=== PATIENT | male | born 1955 | race Caucasian/White ===

== ENCOUNTER 2018-01-09 14:13 | Emergency (ER) | payer MEDICARE, MEDICAID, SELFPAY ==
[2018-01-09 14:26] VITALS: BP 138/104; PULSE 112; RESP 14; TEMP 37; O2SAT 95
--- NOTE | 2018-01-09 15:00 | DI.REPORT_ITS ---
SYMPTOMS/DIAGNOSIS: CHEST PAIN CHEST X-RAY, PORTABLE AP VIEW: Comparison is 01/02/18. The heart size and pulmonary vasculature are stable. Sternal wires are in place. The lungs are clear. No effusions or pneumothoraces are identified. IMPRESSION: No acute pulmonary process.
--- NOTE | 2018-01-09 15:05 | ED.GENADUL ---
Disposition Clinical Impression: Heart attack Disposition: HOME Condition: Critical Additional Instructions: You are leaving AGAINST MEDICAL ADVICE. You may have severe life-threatening or lifestyle modifying disease that is not being appropriately treated. Please follow-up with your doctor and inspector metal can and return to the ER at any time for further treatment. Referrals: Devin Barron [Primary Care Provider] - Medical Decision Making - Lab Data Laboratory Tests 01/09/18 01/09/18 14:30 14:30 WBC 10.10 RBC 5.31 Hgb 18.8 H Hct 51.9 H MCV 97.7 H MCH 35.4 H MCHC 36.2 H RDW 14.2 H Plt Count 343 MPV 10.4 Immature Gran % 1.8 Neutrophils % 54.7 Lymphocytes % 32.1 Monocytes % 8.3 Eosinophils % 2.2 Basophils % 0.9 Absolute Neutrophils 5.53 Absolute Lymphocytes 3.24 Absolute Monocytes 0.84 H Absolute Eosinophils 0.22 Absolute Basophils 0.09 Sodium 140 Potassium 3.5 Chloride 104 Carbon Dioxide 18.4 L Anion Gap 17.6 H BUN 25 H Creatinine 1.28 Estimated GFR/1.73 m2 57.13 Glucose 73 Calcium 8.3 L Magnesium 2.1 Total Bilirubin 1.0 AST 32 ALT 37 Alkaline Phosphatase 84 Troponin I 0.46 H Total Protein 7.1 Albumin 3.6 Results reviewed for labs ordered during visit: Yes - Medical Decision Making 15:09 --62-year-old male with history of extensive coronary artery disease, status post CABGx4, recent NSTEMI, status post 2 stents that were placed 2 days ago at [facility], presents with recurrent chest pain today. ECG reviewed and interpreted by me: Sinus rhythm 99 bpm, normal axis, no STEMI, Q waves present inferiorly, poor R-wave progression, no STEMI, nondiagnostic. Plan at this time is to check troponin. --Labs reviewed and troponin is elevated. Given clinical picture I am concerned about stent stenosis and acute coronary syndrome. Plan to start nitroglycerin drip as well as heparin drip. Plan for transfer to tertiary care facility. 16:28 --I reviewed all results and treatment plan with the patient. Patient refuses further care. Patient specifically states that his not interested in aggressive measures anymore. I explained that he may have life-threatening or lifestyle modifying disease. I specifically noted that he could have a heart attack. Patient verbalized understanding of my concern. Patient has decision-making capacity. Patient refuses further treatment and wishes to leave AGAINST MEDICAL ADVICE. I encouraged him to follow-up with his doctor. I also encouraged him to return immediately should he change his mind. History of Present Illness - General Chief complaint: Chest Pain Stated complaint: CALEX Time Seen by Provider: 01/09/18 14:27 Source: patient, RN notes reviewed Mode of arrival: ambulatory Limitations: no limitations - History of Present Illness Initial comments: 62-year-old male with history of coronary artery disease status post CABG, status post recent stenting, CHF, COPD, hyperlipidemia, hypertension, presents today with chief complaint of chest pain. Patient notes chest pain started approximately 1 hour ago. Described as an ache. Pain localized to his left anterior chest and radiates to his left shoulder. Pain was moderate to severe and improved with fentanyl administration by EMS. Patient was also given nitroglycerin which he notes did not help. Pain is currently improved and rated 4/10. He denies associated shortness of breath. He does have associated anxiety. - Related Data Atorvastatin [Lipitor] 80 mg PO DAILY 12/18/16 Docusate Sodium [Doc-Q-Lace] 100 mg PO PRN PRN 12/18/16 Umeclidinium [place] [Incruse Ellipta] 62.5 mcg IH DAILY 12/18/16 Fluticasone/Salmeterol [Advair 500-50 Diskus] 1 each IH BID 02/12/17 Aspirin 81 mg PO DAILY #30 chew 06/22/17 LORazepam [Ativan] 1 mg PO QID PRN PRN #4 tab 06/22/17 Bisoprolol Fumarate 5 mg PO DAILY #90 tab-cap 09/10/17 Furosemide 40 mg PO BID tab-cap 09/10/17 Omeprazole 40 mg PO DAILY tab-cap 09/10/17 Proventil Hfa 1 puff IH Q4H PRN inhaler 09/10/17 Acetaminophen 500 mg PO PRN PRN 01/09/18 Clopidogrel Bisulfate [Clopidogrel] 75 mg PO DAILY 01/09/18 Digoxin 125 mcg PO DAILY 01/09/18 Diltiazem HCl [Cartia Xt] 240 mg 01/09/18 Isosorbide Mononitrate [Isosorbide Mononitrate ER] 60 mg PO DAILY AM 01/09/18 Losartan Potassium 50 mg PO DAILY AM 01/09/18 Metoprolol Succinate 25 mg PO DAILY AM 01/09/18 Nitroglycerin 0.4 mg SL PRN PRN 01/09/18 Rivaroxaban [Xarelto] 20 mg PO DAILY 01/09/18 Venlafaxine HCl 100 mg PO BID 01/09/18 Allergies Allergy/AdvReac Type Severity Reaction Status Date / Time metoprolol AdvReac fatigue Unverified 01/09/18 14:32 Review of Systems Constitutional: denies: fever Respiratory: denies: cough, shortness of breath Cardiovascular: chest pain Gastrointestinal: denies: abdominal pain Neurological: denies: headache Comment: All other systems reviewed and negative Past Medical History - Past Medical History Medical history: AMI, CAD, CHF, COPD, hyperlipidemia, hypertension Surgical history: angioplasty/stent, coronary bypass surgery, herniorraphy (Bilateral inguinal) - Social History Alcohol use: heavy, recent Drug use: none General Exam - General Limitations: no limitations General appearance: alert, in no apparent distress - Eye Eye exam: Absent: scleral icterus, conjunctival injection - ENT ENT exam: Present: mucous membranes moist - Respiratory Respiratory exam: Present: normal lung sounds bilaterally. Absent: respiratory distress, wheezes, rales, rhonchi - Cardiovascular Cardiovascular Exam: Present: regular rate, normal rhythm, normal heart sounds - GI/Abdominal GI/Abdominal exam: Present: soft. Absent: distended, tenderness - Extremities Exam Extremities exam: Absent: pedal edema, calf tenderness - Neurological Exam Neurological exam: Present: alert. Absent: altered - Psychiatric Psychiatric exam: Present: normal affect - Skin Skin exam: Present: warm, dry, intact. Absent: cyanosis, diaphoretic Course Vital Signs - 24 hr 01/09/18 14:26 Temperature 37 C Pulse 112 H Respiratory 14 Rate Blood Pressure 138/104 Pulse Oximetry 95
--- NOTE | 2018-01-09 15:08 | ED.GENADUL_ITS ---
Disposition Clinical Impression: Heart attack Disposition: HOME Condition: Critical Additional Instructions: You are leaving AGAINST MEDICAL ADVICE. You may have severe life-threatening or lifestyle modifying disease that is not being appropriately treated. Please follow-up with your doctor and cnc field service engineer and return to the ER at any time for further treatment. Referrals: Devin Barron [Primary Care Provider] - Medical Decision Making - Lab Data Laboratory Tests 01/09/18 01/09/18 14:30 14:30 WBC 10.10 RBC 5.31 Hgb 18.8 H Hct 51.9 H MCV 97.7 H MCH 35.4 H MCHC 36.2 H RDW 14.2 H Plt Count 343 MPV 10.4 Immature Gran % 1.8 Neutrophils % 54.7 Lymphocytes % 32.1 Monocytes % 8.3 Eosinophils % 2.2 Basophils % 0.9 Absolute Neutrophils 5.53 Absolute Lymphocytes 3.24 Absolute Monocytes 0.84 H Absolute Eosinophils 0.22 Absolute Basophils 0.09 Sodium 140 Potassium 3.5 Chloride 104 Carbon Dioxide 18.4 L Anion Gap 17.6 H BUN 25 H Creatinine 1.28 Estimated GFR/1.73 m2 57.13 Glucose 73 Calcium 8.3 L Magnesium 2.1 Total Bilirubin 1.0 AST 32 ALT 37 Alkaline Phosphatase 84 Troponin I 0.46 H Total Protein 7.1 Albumin 3.6 Results reviewed for labs ordered during visit: Yes - Medical Decision Making 15:09 --62-year-old male with history of extensive coronary artery disease, status post CABGx4, recent NSTEMI, status post 2 stents that were placed 2 days ago at [facility], presents with recurrent chest pain today. ECG reviewed and interpreted by me: Sinus rhythm 99 bpm, normal axis, no STEMI, Q waves present inferiorly, poor R-wave progression, no STEMI, nondiagnostic. Plan at this time is to check troponin. --Labs reviewed and troponin is elevated. Given clinical picture I am concerned about stent stenosis and acute coronary syndrome. Plan to start nitroglycerin drip as well as heparin drip. Plan for transfer to tertiary care facility. 16:28 --I reviewed all results and treatment plan with the patient. Patient refuses further care. Patient specifically states that his not interested in aggressive measures anymore. I explained that he may have life-threatening or lifestyle modifying disease. I specifically noted that he could have a heart attack. Patient verbalized understanding of my concern. Patient has decision- making capacity. Patient refuses further treatment and wishes to leave AGAINST MEDICAL ADVICE. I encouraged him to follow-up with his doctor. I also encouraged him to return immediately should he change his mind. History of Present Illness - General Chief complaint: Chest Pain Stated complaint: CALEX Time Seen by Provider: 01/09/18 14:27 Source: patient, RN notes reviewed Mode of arrival: ambulatory Limitations: no limitations - History of Present Illness Initial comments: 62-year-old male with history of coronary artery disease status post CABG, status post recent stenting, CHF, COPD, hyperlipidemia, hypertension, presents today with chief complaint of chest pain. Patient notes chest pain started approximately 1 hour ago. Described as an ache. Pain localized to his left anterior chest and radiates to his left shoulder. Pain was moderate to severe and improved with fentanyl administration by EMS. Patient was also given nitroglycerin which he notes did not help. Pain is currently improved and rated 4/10. He denies associated shortness of breath. He does have associated anxiety. - Related Data Atorvastatin [Lipitor] 80 mg PO DAILY 12/18/16 Docusate Sodium [Doc-Q-Lace] 100 mg PO PRN PRN 12/18/16 Umeclidinium [place] [Incruse Ellipta] 62.5 mcg IH DAILY 12/18/16 Fluticasone/Salmeterol [Advair 500-50 Diskus] 1 each IH BID 02/12/17 Aspirin 81 mg PO DAILY #30 chew 06/22/17 LORazepam [Ativan] 1 mg PO QID PRN PRN #4 tab 06/22/17 Bisoprolol Fumarate 5 mg PO DAILY #90 tab-cap 09/10/17 Furosemide 40 mg PO BID tab-cap 09/10/17 Omeprazole 40 mg PO DAILY tab-cap 09/10/17 Proventil Hfa 1 puff IH Q4H PRN inhaler 09/10/17 Acetaminophen 500 mg PO PRN PRN 01/09/18 Clopidogrel Bisulfate [Clopidogrel] 75 mg PO DAILY 01/09/18 Digoxin 125 mcg PO DAILY 01/09/18 Diltiazem HCl [Cartia Xt] 240 mg 01/09/18 Isosorbide Mononitrate [Isosorbide Mononitrate ER] 60 mg PO DAILY AM 01/09/18 Losartan Potassium 50 mg PO DAILY AM 01/09/18 Metoprolol Succinate 25 mg PO DAILY AM 01/09/18 Nitroglycerin 0.4 mg SL PRN PRN 01/09/18 Rivaroxaban [Xarelto] 20 mg PO DAILY 01/09/18 Venlafaxine HCl 100 mg PO BID 01/09/18 Allergies Allergy/AdvReac Type Severity Reaction Status Date / Time metoprolol AdvReac fatigue Unverified 01/09/18 14:32 Review of Systems Constitutional: denies: fever Respiratory: denies: cough, shortness of breath Cardiovascular: chest pain Gastrointestinal: denies: abdominal pain Neurological: denies: headache Comment: All other systems reviewed and negative Past Medical History - Past Medical History Medical history: AMI, CAD, CHF, COPD, hyperlipidemia, hypertension Surgical history: angioplasty/stent, coronary bypass surgery, herniorraphy ( Bilateral inguinal) - Social History Alcohol use: heavy, recent Drug use: none General Exam - General Limitations: no limitations General appearance: alert, in no apparent distress - Eye Eye exam: Absent: scleral icterus, conjunctival injection - ENT ENT exam: Present: mucous membranes moist - Respiratory Respiratory exam: Present: normal lung sounds bilaterally. Absent: respiratory distress, wheezes, rales, rhonchi - Cardiovascular Cardiovascular Exam: Present: regular rate, normal rhythm, normal heart sounds - GI/Abdominal GI/Abdominal exam: Present: soft. Absent: distended, tenderness - Extremities Exam Extremities exam: Absent: pedal edema, calf tenderness - Neurological Exam Neurological exam: Present: alert. Absent: altered - Psychiatric Psychiatric exam: Present: normal affect - Skin Skin exam: Present: warm, dry, intact. Absent: cyanosis, diaphoretic Course Vital Signs - 24 hr 01/09/18 14:26 Temperature 37 C Pulse 112 H Respiratory 14 Rate Blood Pressure 138/104 Pulse Oximetry 95
[2018-01-09 15:19] LABS: Abs Immature Grans 0.18 k/cumm (0.0-0.09); Absolute Basophil Count 0.09 k/cumm (0.0-0.2); Absolute Eosinophil Count 0.22 k/cumm (0.0-0.7); Absolute Lymphocyte Count 3.24 k/cumm (1.2-3.4); Absolute Monocyte Count 0.84 k/cumm (0.11-0.7); Absolute Neutrophil Count 5.53 k/cumm (1.2-6.7); Basophils % 0.9; Eosinophils % 2.2; HCT 51.9 % (40.0-50.0); HGB 18.8 g/dL (13.5-17.5); Immature Grans % 1.8; Lymphocytes % 32.1; Mean Corp. HGB Concentration 36.2 g/dL (32.0-36.0); Mean Corpuscular Hemoglobin 35.4 pg (27.0-33.0); Mean Corpuscular Volume 97.7 fL (80-95); Mean Platelet Volume 10.4 fL (8.0-11.0); Monocytes % 8.3; Neutrophils % 54.7; Platelet Count 343 x1000/uL (130-400); RBC 5.31 m/cumm (4.50-6.00); RBC Distribution Width 14.2 % (11.8-14.1)
[2018-01-09] MEDS: LORazepam 1 MG TAB PO (15:23)
[2018-01-09 15:31] LABS: ALT 37 U/L (12-78); AST 32 U/L (15-37); Albumin 3.6 g/dL (3.4-5.0); Alkaline Phosphatase 84 U/L (46-116); Anion Gap 17.6 mmol/L (3-11); BUN 25 mg/dL (7-18); CO2 18.4 mmol/L (21.0-32.0); CREATININE 1.28 mg/dL (0.70-1.30); Calcium 8.3 mg/dL (8.5-10.1); Chloride 104 mmol/L (98-107); Estimated GFR 57.13 (mL/min/1.73m2); Glucose 73 mg/dL (70-100); Magnesium 2.1 mg/dL (1.8-2.4); Potassium 3.5 mmol/L (3.5-5.1); Sodium 140 mmol/L (136-145); Total Protein 7.1 g/dL (6.4-8.2)
[2018-01-09 15:45] LABS: Troponin I 0.46 ng/mL (0.00-0.06)
== END 2018-01-09 16:27 | disposition home or self-care (01) ==
PROVIDERS: Emergency Provider Student in an Organized Health Care Education/Training Program; PCP Specialist/Technologist Athletic Trainer
DX: I21.4 Non-ST elevation (NSTEMI) myocardial infarction (principal); I50.9 Heart failure, unspecified; Z95.1 Presence of aortocoronary bypass graft; J44.9 Chronic obstructive pulmonary disease, unspecified; I11.0 Hypertensive heart disease with heart failure
CPT/HCPCS: 71045; 93005; 99285 ×2; 36415; 80053; 83735; 84484; 85025; 93010

== ENCOUNTER 2018-01-13 09:04 | Emergency (ER) | payer MEDICARE, MEDICAID, SELFPAY ==
[2018-01-13] VITALS (47 sets, daily range): BP systolic 100–174; BP diastolic 56–129; PULSE 50–120; RESP 9–25; TEMP 37.3; O2SAT 91–97
--- NOTE | 2018-01-13 09:18 | ED.GENADUL ---
Disposition Clinical Impression: Chest pain, Elevated troponin Disposition: [facility] Medical Decision Making - Medical Decision Making 922 --62-year-old male with history of extensive coronary artery disease status post CABG and recent stenting, atrial fibrillation, CHF, COPD, on Plavix and anticoagulated with Xarelto, presents with chief complaint of chest pain. Patient was seen here on 01/09/2018 for chest pain, found to have an elevated troponin, and left the emergency department AGAINST MEDICAL ADVICE prior to completion of treatment workup. Concern for ACS. Plan to check troponin. Will start nitro gtt. ECG reviewed and interpreted by me: Atrial fibrillation with RVR, 113 bpm, normal axis, frequent PVCs, nonspecific QRS widening with QRS duration of 120, no STEMI. I reviewed past medical record: Patient had CT chest 12/15/2017 interpreted by radiology no evidence of pulmonary embolic disease. 1015 -- Trop elevated. Suspect NSTEMI. cxr interpreted by radiology: Negative [facility] contacted to request transfer. 1100 -- Spoke with Dr. Falcon, [facility] cardiology, will accept patient in transfer. Awaiting bed availability. Pt reassessed and continues to have chest pain. Pain improved with nitroglycerin 10mcg/min. History of Present Illness - General Chief complaint: Chest Pain Stated complaint: CALEX Time Seen by Provider: 01/13/18 09:07 Source: patient, EMS, RN notes reviewed Mode of arrival: EMS Limitations: no limitations - History of Present Illness Initial comments: 62-year-old male with history of extensive coronary artery disease, status post CABG ?4, recent and STEMI, status post 2 stents were placed at [facility] earlier this month, atrial fibrillation, anticoagulated on Xarelto, CHF, hypertension, hyperlipidemia, COPD, presents today with chief complaint of chest pain. Patient notes pain started couple hours ago and has persisted. Pain is moderate 4-5/10, constant, unchanged with nitroglycerin administered orally by EMS. No associated shortness of breath. Patient does feel little bit shaky. Patient consumes heavy daily alcohol and last drank last night. - Related Data Atorvastatin [Lipitor] 80 mg PO DAILY 12/18/16 Docusate Sodium [Doc-Q-Lace] 100 mg PO PRN PRN 12/18/16 Umeclidinium [place] [Incruse Ellipta] 62.5 mcg IH DAILY 07/12/17 Fluticasone/Salmeterol [Advair 500-50 Diskus] 1 each IH BID 02/12/17 Aspirin 81 mg PO DAILY #30 chew 06/22/17 LORazepam [Ativan] 1 mg PO QID PRN PRN #4 tab 06/22/17 Bisoprolol Fumarate 5 mg PO DAILY #90 tab-cap 09/10/17 Furosemide 40 mg PO BID tab-cap 09/10/17 Omeprazole 40 mg PO DAILY tab-cap 09/10/17 Proventil Hfa 1 puff IH Q4H PRN inhaler 09/10/17 Acetaminophen 500 mg PO PRN PRN 01/09/18 Clopidogrel Bisulfate [Clopidogrel] 75 mg PO DAILY 01/09/18 Digoxin 125 mcg PO DAILY 01/09/18 Diltiazem HCl [Cartia Xt] 240 mg PO DAILY 01/09/18 Isosorbide Mononitrate [Isosorbide Mononitrate ER] 60 mg PO DAILY AM 01/09/18 Losartan Potassium 50 mg PO DAILY AM 01/09/18 Metoprolol Succinate 25 mg PO DAILY AM 01/09/18 Nitroglycerin 0.4 mg SL PRN PRN 01/09/18 Rivaroxaban [Xarelto] 20 mg PO DAILY 01/09/18 Venlafaxine HCl 100 mg PO BID 01/09/18 HYDROmorphone [Dilaudid] 2 mg PO Q6H PRN PRN #5 tab 01/17/18 Isosorbide Mononitrate CR [Imdur] 30 mg PO DAILY #30 tabcr 01/17/18 Allergies Allergy/AdvReac Type Severity Reaction Status Date / Time metoprolol AdvReac fatigue Unverified 01/09/18 14:32 Review of Systems Constitutional: denies: fever Respiratory: denies: cough, shortness of breath Cardiovascular: chest pain. denies: syncope Comment: All other systems reviewed and negative Past Medical History - Past Medical History Medical history: AFIB, AMI, CAD, CHF, COPD, hyperlipidemia, hypertension Surgical history: angioplasty/stent, coronary bypass surgery, herniorraphy (Bilateral inguinal) - Social History Smoking status: current some day smoker Alcohol use: heavy, recent Drug use: none General Exam - General Limitations: no limitations General appearance: alert, in no apparent distress - Eye Eye exam: Absent: scleral icterus, conjunctival injection - ENT ENT exam: Present: mucous membranes moist - Neck Neck exam: Present: other (No JVD) - Respiratory Respiratory exam: Present: normal lung sounds bilaterally, rales (At bases bilaterally). Absent: respiratory distress, rhonchi, stridor, decreased breath sounds - Cardiovascular Cardiovascular Exam: Present: tachycardia, irregular rhythm, normal heart sounds - GI/Abdominal GI/Abdominal exam: Present: soft. Absent: distended, tenderness - Extremities Exam Extremities exam: Absent: pedal edema - Neurological Exam Neurological exam: Present: alert. Absent: altered - Psychiatric Psychiatric exam: Present: normal affect - Skin Skin exam: Present: warm, dry, intact Course Vital Signs - 24 hr 08//18 09:10 Temperature 37.3 C Pulse 107 H Respiratory 14 Rate Blood Pressure 156/70 Pulse Oximetry 96 Critical Care Time Critical Care Time: Yes Total Critical Care Time: 65 Critical Care Time: I spent greater than 65 minutes addressing this patient's immediate life threats
--- NOTE | 2018-01-13 09:24 | DI.REPORT_ITS ---
SYMPTOM/DIAGNOSIS: CHEST PAIN CHEST X-RAY: Portable AP view. Comparison 06/20/17 Heart size and pulmonary vasculature are within normal limits. Sternal wires are in place. There is unchanged scarring in the left upper lobe. No new consolidating infiltrates, effusions or pneumothoraces are identified. Vascular stents are seen in the mediastinum. IMPRESSION: No acute pulmonary process. No significant change in appearance of the chest compared to 06/20/17.
[2018-01-13] MEDS: LORazepam 2 MG/ML VIAL 1 MG IVP ×2 (09:30→12:10)
[2018-01-13 09:49] LABS: Abs Immature Grans 0.06 k/cumm (0.0-0.09); Absolute Basophil Count 0.05 k/cumm (0.0-0.2); Absolute Eosinophil Count 0.15 k/cumm (0.0-0.7); Absolute Lymphocyte Count 1.76 k/cumm (1.2-3.4); Absolute Monocyte Count 0.69 k/cumm (0.11-0.7); Absolute Neutrophil Count 2.69 k/cumm (1.2-6.7); Basophils % 0.9; Eosinophils % 2.8; HCT 45.6 % (40.0-50.0); HGB 16.2 g/dL (13.5-17.5); Immature Grans % 1.1; Lymphocytes % 32.6; Mean Corp. HGB Concentration 35.5 g/dL (32.0-36.0); Mean Corpuscular Hemoglobin 35.9 pg (27.0-33.0); Mean Corpuscular Volume 101.1 fL (80-95); Mean Platelet Volume 9.3 fL (8.0-11.0); Monocytes % 12.8; Neutrophils % 49.8; Platelet Count 273 x1000/uL (130-400); RBC 4.51 m/cumm (4.50-6.00); RBC Distribution Width 14.9 % (11.8-14.1)
[2018-01-13 10:03] LABS: INR 0.9 (1.0-3.5); PTT Activated 22.8 sec (21.0-31.4)
[2018-01-13 10:09] LABS: ALT 51 U/L (12-78); AST 39 U/L (15-37); Albumin 3.2 g/dL (3.4-5.0); Alkaline Phosphatase 87 U/L (46-116); Anion Gap 14.5 mmol/L (3-11); BUN 12 mg/dL (7-18); Bilirubin, Total 0.6 mg/dL (0.2-1.0); CO2 20.5 mmol/L (21.0-32.0); CREATININE 1.03 mg/dL (0.70-1.30); Calcium 8.2 mg/dL (8.5-10.1); Chloride 104 mmol/L (98-107); Glucose 57 mg/dL (70-100); Magnesium 2.1 mg/dL (1.8-2.4); NT-proBNP 1720 pg/mL; Potassium 4.2 mmol/L (3.5-5.1); Sodium 139 mmol/L (136-145); Total Protein 6.5 g/dL (6.4-8.2)
[2018-01-13 10:11] LABS: Troponin I 0.15 ng/mL (0.00-0.06)
== END 2018-01-13 12:25 ==
PROVIDERS: Emergency Provider Student in an Organized Health Care Education/Training Program; PCP Specialist/Technologist Athletic Trainer
DX: R07.9 Chest pain, unspecified (principal); R79.89 Other specified abnormal findings of blood chemistry; Z79.01 Long term (current) use of anticoagulants; J44.9 Chronic obstructive pulmonary disease, unspecified; Z95.1 Presence of aortocoronary bypass graft
CPT/HCPCS: 71045; 93005; 96365; 96366; 96375; 99285 ×2; J2060; 36415; 80053; 83735; 83880; 84484; 85025; 85610; 85730; 93010

== ENCOUNTER 2018-01-17 13:38 | Emergency (ER) | payer MEDICARE, MEDICAID, SELFPAY ==
[2018-01-17] VITALS (45 sets, daily range): BP systolic 102–157; BP diastolic 62–104; PULSE 54–120; RESP 10–26; TEMP 36.2; O2SAT 86–95
--- NOTE | 2018-01-17 13:46 | ED.GENADUL ---
Disposition Clinical Impression: Non-STEMI (non-ST elevated myocardial infarction) Disposition: HOME Condition: Fair Additional Instructions: Please follow-up with in clinic on Friday. She and I discussed her case today and she will make room for you to have an appointment. She asked that we increase your Imdur more to an additional 30 mg for 90 mg per day. I have written new prescription for this. Continue all of your other prescribed medications until you are able to review them with Dr. Lim in clinic. You have elected to pursue outpatient management and declined further admission or transfer. You may change her mind and return at any time. May use Dilaudid, sparingly, as prescribed for severe pain. Prescriptions: HYDROmorphone [Dilaudid] 2 mg PO Q6H PRN PRN #5 tab PRN Reason: Severe Pain Isosorbide Mononitrate CR [Imdur] 30 mg PO DAILY #30 tabcr Referrals: Wendi Lim MD [ [facility] STAFF PHYSICIAN] - Medical Decision Making - Lab Data Laboratory Results - last 24 hr 01/17/18 01/17/18 01/17/18 14:40 14:40 14:40 WBC 7.33 RBC 4.67 Hgb 16.8 Hct 47.9 MCV 102.6 H MCH 36.0 H MCHC 35.1 RDW 14.5 H Plt Count 237 MPV 10.0 Immature Gran % 1.0 Neutrophils % 65.9 Lymphocytes % 24.1 Monocytes % 6.0 Eosinophils % 2.2 Basophils % 0.8 Absolute Neutrophils 4.83 Absolute Lymphocytes 1.77 Absolute Monocytes 0.44 Absolute Eosinophils 0.16 Absolute Basophils 0.06 Sodium Cancelled Potassium Cancelled Chloride Cancelled Carbon Dioxide Cancelled Anion Gap Cancelled BUN Cancelled Creatinine Cancelled Estimated GFR/1.73 m2 Cancelled Glucose Cancelled Calcium Cancelled Magnesium Cancelled Total Bilirubin Cancelled AST Cancelled ALT Cancelled Alkaline Phosphatase Cancelled Troponin I Cancelled NT-Pro-B Natriuret Pep Cancelled Total Protein Cancelled Albumin Cancelled Lipase Cancelled Cancelled Ethyl Alcohol 01/17/18 01/17/18 01/17/18 14:40 14:40 14:57 WBC RBC Hgb Hct MCV MCH MCHC RDW Plt Count MPV Immature Gran % Neutrophils % Lymphocytes % Monocytes % Eosinophils % Basophils % Absolute Neutrophils Absolute Lymphocytes Absolute Monocytes Absolute Eosinophils Absolute Basophils Sodium 141 Potassium 4.4 Chloride 107 Carbon Dioxide 20.5 L Anion Gap 13.5 H BUN 18 Creatinine 0.94 Estimated GFR/1.73 m2 >= 60.00 Glucose 84 Calcium 8.2 L Magnesium 1.7 L Total Bilirubin 0.4 AST 25 ALT 34 Alkaline Phosphatase 79 Troponin I 0.10 H NT-Pro-B Natriuret Pep Cancelled 3360 H Total Protein 6.6 Albumin 3.2 L Lipase 112 Ethyl Alcohol Cancelled 92.7 Results reviewed for labs ordered during visit: Yes 01/17/18 13:47 Atrial fibrillation, ST segments are flat, ventricular rate is 106. - Radiology Data Radiology results: report reviewed, image reviewed - Medical Decision Making 62-year-old male with advanced, end-stage coronary artery disease, peripheral vascular disease, COPD. Recently admitted to the [facility] and told he is not a candidate for any further interventions. He continues to smoke cigarettes, he has admitted to drinking some daily alcohol. He called EMS this morning after leaving another institution AGAINST MEDICAL ADVICE. Rises ongoing chest discomfort. He is afebrile, is in rapid atrial fibrillation with a ventricular rate of 100, he is normotensive. Differential diagnosis includes acute myocardial ischemia, congestive heart failure, COPD exacerbation. IV access established, patient given anxiolytic and small aliquot of analgesic given that he has already had a liberal amount of nitroglycerin prehospital. Reviewed patient's recent medical records from [facility]. Note of discharge on December 18 for non-STEMI, A. fib with RVR, COPD exacerbation, alcohol withdrawal and that the patient left AGAINST MEDICAL ADVICE. Admission from January 02 - January 07 in which patient underwent percutaneous intervention; Left heart catheterization on January 05, noting severe single-vessel coronary artery disease prominently involving the first obtuse marginal. Angioplasty performed on left circumflex lesion. Stent placed to first obtuse marginal. While in the emergency department, patient made decision he no longer wishes to pursue transfer to other institutions for interventions. He wishes to be made DNR/DNI with palliative care. I discussed his case with Dr. Lim who recommended the patient fill out a COLST form today with care management which was accomplished, and signed by me. Dr Lim is available to see him in clinic. Patient does not wish to be admitted. He is to be DNR/DNI, and will discuss further palliative treatment with Dr. Lim. I will prescribe him increased analgesia to be used as needed for pain and increase his Imdur from 60 to 90mg. Sodium 141, potassium 4.4, chloride 107, bicarb 20, BUN 18, creatinine 0.9, magnesium 1.7, troponin 0.10, BNP 3360. Lipase negative. Alcohol positive at 92. I feel the patient is medically stable, demonstrates capacity to make decisions and is clinically sober. He will be discharged per his wishes. History of Present Illness - General Stated complaint: CALEX Time Seen by Provider: 01/17/18 13:39 Source: patient, EMS Mode of arrival: EMS Limitations: no limitations - History of Present Illness Initial comments: 62-year-old male presents via EMS for recurrent chest pain. He states he was shopping in [facility] when he had recurrent anterior chest pressure that was refractive to a number administrations of his prescribed nitroglycerin. He states that he went to the [facility] emergency department but subsequent left there against advice earlier this morning. He called EMS for persistent chest pain refractory to his home nitroglycerin. It is sharp, severe, constant, anterior, nonradiating, minimally improved with home nitroglycerin. He admits to ongoing alcohol and tobacco use daily. He states that he has been trying to take his medications as prescribed. He is been recently admitted to [facility] a number of times and told he has no further intervene able targets for cardiac intervention. He has a history of atrial fibrillation, coronary artery disease, CHF, COPD, hyperlipidemia, hypertension, previous angioplasty and stent as well as coronary artery bypass. He has recently been seen in the emergency department December 15 with non-STEMI for which she was transported to [facility]. January 02 for which he was admitted to [facility] for a non-STEMI. January 09 he had a positive troponin and subsequently left AGAINST MEDICAL ADVICE. He was seen again on January 13 and was transported to [facility]. (Recent troponins: December 15 0.36, January 02 0.14, January 09 0.46, January 13 0.15) - Related Data Atorvastatin [Lipitor] 80 mg PO DAILY 12/18/16 Docusate Sodium [Doc-Q-Lace] 100 mg PO PRN PRN 12/18/16 Umeclidinium [place] [Incruse Ellipta] 62.5 mcg IH DAILY 12/18/16 Fluticasone/Salmeterol [Advair 500-50 Diskus] 1 each IH BID 02/12/17 Aspirin 81 mg PO DAILY #30 chew 06/22/17 LORazepam [Ativan] 1 mg PO QID PRN PRN #4 tab 06/22/17 Bisoprolol Fumarate 5 mg PO DAILY #90 tab-cap 09/10/17 Furosemide 40 mg PO BID tab-cap 09/10/17 Omeprazole 40 mg PO DAILY tab-cap 09/10/17 Proventil Hfa 1 puff IH Q4H PRN inhaler 09/10/17 Acetaminophen 500 mg PO PRN PRN 01/09/18 Clopidogrel Bisulfate [Clopidogrel] 75 mg PO DAILY 01/09/18 Digoxin 125 mcg PO DAILY 01/09/18 Diltiazem HCl [Cartia Xt] 240 mg PO DAILY 01/09/18 Isosorbide Mononitrate [Isosorbide Mononitrate ER] 60 mg PO DAILY AM 01/09/18 Losartan Potassium 50 mg PO DAILY AM 01/09/18 Metoprolol Succinate 25 mg PO DAILY AM 01/09/18 Nitroglycerin 0.4 mg SL PRN PRN 01/09/18 Rivaroxaban [Xarelto] 20 mg PO DAILY 01/09/18 Venlafaxine HCl 100 mg PO BID 01/09/18 HYDROmorphone [Dilaudid] 2 mg PO Q6H PRN PRN #5 tab 01/17/18 Isosorbide Mononitrate CR [Imdur] 30 mg PO DAILY #30 tabcr 01/17/18 Allergies Allergy/AdvReac Type Severity Reaction Status Date / Time metoprolol AdvReac fatigue Unverified 01/09/18 14:32 Review of Systems Respiratory: shortness of breath Other: 8 systems reviewed, patient will note poor mood without suicidality, intermittent exertional shortness of breath. Past Medical History - Past Medical History Medical history: AFIB, AMI, CAD, CHF, COPD, hyperlipidemia, hypertension Surgical history: angioplasty/stent, coronary bypass surgery, herniorraphy (Bilateral inguinal) - Social History Alcohol use: heavy, recent Drug use: none General Exam - General Limitations: no limitations General appearance: alert, in no apparent distress - Head Head exam: Present: atraumatic, normocephalic - Eye Eye exam: Present: PERRL, EOMI, conjunctival injection - ENT ENT exam: Present: normal exam, normal external ear exam - Neck Neck exam: Present: normal inspection, full ROM. Absent: tenderness - Respiratory Respiratory exam: Present: normal lung sounds bilaterally, other (Few end expiratory wheeze bilaterally). Absent: respiratory distress - Cardiovascular Cardiovascular Exam: Present: tachycardia, irregular rhythm - GI/Abdominal GI/Abdominal exam: Present: soft. Absent: distended, tenderness - Extremities Exam Extremities exam: Present: normal inspection, full ROM, normal capillary refill, pedal edema, other (Trace pedal edema bilaterally) - Neurological Exam Neurological exam: Present: alert, oriented X3 - Psychiatric Psychiatric exam: Present: anxious. Absent: suicidal ideation - Skin Skin exam: Present: warm, dry, intact
--- NOTE | 2018-01-17 13:50 | DI.REPORT_ITS ---
SYMPTOM/DIAGNOSIS: CP/SOB AP AND LATERAL CHEST: Comparison is made with 13 Jan 2018. The heart is enlarged. The patient is status post CABG and coronary artery stents. There are underlying fibrotic changes. No superimposed acute infiltrate, effusion or pulmonary edema is seen. IMPRESSION: No acute abnormality.
[2018-01-17] MEDS: HYDROmorphone 2 MG/ML VIAL 0.5 MG IVP (14:43)
[2018-01-17] MEDS: LORazepam 2 MG/ML VIAL 0.5 MG IVP (14:45)
[2018-01-17 14:48] LABS: Abs Immature Grans 0.07 k/cumm (0.0-0.09); Absolute Basophil Count 0.06 k/cumm (0.0-0.2); Absolute Eosinophil Count 0.16 k/cumm (0.0-0.7); Absolute Lymphocyte Count 1.77 k/cumm (1.2-3.4); Absolute Monocyte Count 0.44 k/cumm (0.11-0.7); Absolute Neutrophil Count 4.83 k/cumm (1.2-6.7); Basophils % 0.8; Eosinophils % 2.2; HCT 47.9 % (40.0-50.0); HGB 16.8 g/dL (13.5-17.5); Lymphocytes % 24.1; Mean Corp. HGB Concentration 35.1 g/dL (32.0-36.0); Mean Corpuscular Volume 102.6 fL (80-95); Neutrophils % 65.9; Platelet Count 237 x1000/uL (130-400); RBC 4.67 m/cumm (4.50-6.00); RBC Distribution Width 14.5 % (11.8-14.1); White Blood Cell Count 7.33 k/cumm (4.4-10.8)
--- NOTE | 2018-01-17 15:39 | DI.VRAD_ITS ---
EXAM: XR Chest, 2 Views EXAM DATE/TIME: 01/17/2018 1:52 PM CLINICAL HISTORY: 62 years old, male; Signs and symptoms; Shortness of breath; Prior surgery; Surgery date: 6+ months; Surgery type: Open heart; Patient HX: Cp/sob TECHNIQUE: XR of the chest, 2 views. COMPARISON: CR - PORTABLE CHEST ONE VIEW 2018-01-13 09:32 FINDINGS: Lungs: Stable mild to moderate COPD. Pleural space: Unremarkable. No pleural effusion. No pneumothorax. Heart/Mediastinum: Borderline to mild cardiomegaly. Vasculature: Right coronary artery endovascular stent. Bones/joints: Stable sternotomy. IMPRESSION: 1. Borderline to mild cardiomegaly. 2. Right coronary artery endovascular stent. 3. Stable mild to moderate COPD. Dictated and Authenticated by: Edison Bustos MD. Ordering:ANAI DAVID MD
[2018-01-17 16:27] LABS: ALT 34 U/L (12-78); AST 25 U/L (15-37); Albumin 3.2 g/dL (3.4-5.0); Alkaline Phosphatase 79 U/L (46-116); Anion Gap 13.5 mmol/L (3-11); BUN 18 mg/dL (7-18); Bilirubin, Total 0.4 mg/dL (0.2-1.0); CO2 20.5 mmol/L (21.0-32.0); CREATININE 0.94 mg/dL (0.70-1.30); Calcium 8.2 mg/dL (8.5-10.1); Chloride 107 mmol/L (98-107); ETHANOL BLOOD 92.7 mg/dL (<3); Glucose 84 mg/dL (70-100); Lipase 112 U/L (73-393); Magnesium 1.7 mg/dL (1.8-2.4); NT-proBNP 3360 pg/mL; Potassium 4.4 mmol/L (3.5-5.1); Sodium 141 mmol/L (136-145); Total Protein 6.6 g/dL (6.4-8.2)
[2018-01-17] MEDS: HYDROmorphone 2 MG/ML VIAL 1 MG IVP (16:47)
--- NOTE | 2018-01-17 16:48 | NUR.NOTE ---
Nursing Note: Second dose of Dilaudid given at 1600 for pain 6/10. Pt states first dose reduced pain to 2/10 before it began to increase. At this time pt is eating a sandwich and attempting to call friends.
--- NOTE | 2018-01-17 17:52 | NUR.NOTE ---
Nursing Note: Pt tolerated food very well, no N/V. Pain 10 at thistime and he is working with [employer] for transfer to Pallitive Care as he wants no further heroic measures. He wants to realize pain control and to stop drinking.
--- NOTE | 2018-01-17 17:59 | PDOC.ERCMPRO ---
Date of Service: 01/17/18 Time of Service: 17:59 Care Management Progress Note CM was contacted by ED to meet with Christofer and review COLST and Palliative services. CM entered the room and greeted politely by Christofer. He makes good eye contact, he states that he is tired of medical intervention. Christofer is open r/t his recent increase of alcohol use. Christofer discusses his sadness and grief r/t recent of his Mother. He reports that him and his Mother had a close relationship and he spoke to her often and reports he missed her very much. CM reviewed grief symptoms with patient and offered a referral to [facility].CM encouraged patient to seek mental health services his boarding room is in front of [facility], he states I don't really believe in talk therapy its to easy to bullshit. Christofer states he would like to complete a COLST from and that he would like his care to be directed toward comfort and quality. He will meet with on Friday this coming week, CM reviewed palliative care and what to expect. Christofer was told that he was unable to return to his place of living, CM contacted Danuta Vizcaino who runs the boarding house. Danuta states that she is concerned that Christofer has been acting out when he is drinking and she does not want it to affect the other resident's. CM reviewed the plan for Christofer to return home with Danuta. Danuta states he can return home and she will check on him tonight. CM revisited Christofer and reported Danuta's concerns to him. Christofer states he has been trying to suppress his feelings of grief and states I thought I was hiding my agitation and sadness well. CM reviewed COLST as requested by and patient, and answered questions. Christofer completed COLST. COLST was reviewed with and confirmed, COLST was signed and placed in electronic chart, with ED chart, faxed to palliative and provided copy to patient. CM provided contact information to Christofer and requested call for any questions or concerns after ED discharge. CM reviewed transportation home with Christofer he will contact his friend Ady if she is unavailable ED to arrange transport through [facility].
--- NOTE | 2018-01-17 18:20 | CMPROGNOTE_ITS ---
Date of Service: 01/17/18 Time of Service: 17:59 Care Management Progress Note CM was contacted by ED to meet with Christofer and review COLST and Palliative services. CM entered the room and greeted politely by Christofer. He makes good eye contact, he states that he is tired of medical intervention. Christofer is open r/t his recent increase of alcohol use. Christofer discusses his sadness and grief r/t recent of his Mother. He reports that him and his Mother had a close relationship and he spoke to her often and reports he missed her very much. CM reviewed grief symptoms with patient and offered a referral to [facility].CM encouraged patient to seek mental health services his boarding room is in front of [facility], he states I don't really believe in talk therapy its to easy to bullshit. Christofer states he would like to complete a COLST from and that he would like his care to be directed toward comfort and quality. He will meet with on Friday this coming week, CM reviewed palliative care and what to expect. Christofer was told that he was unable to return to his place of living, CM contacted Danuta Vizcaino who runs the boarding house. Danuta states that she is concerned that Christofer has been acting out when he is drinking and she does not want it to affect the other resident's. CM reviewed the plan for Christofer to return home with Danuta. Danuta states he can return home and she will check on him tonight. CM revisited Christofer and reported Danuta's concerns to him. Christofer states he has been trying to suppress his feelings of grief and states I thought I was hiding my agitation and sadness well. CM reviewed COLST as requested by and patient, and answered questions. Christofer completed COLST. COLST was reviewed with and confirmed, COLST was signed and placed in electronic chart, with ED chart, faxed to palliative and provided copy to patient. CM provided contact information to Christofer and requested call for any questions or concerns after ED discharge. CM reviewed transportation home with Christofer he will contact his friend Ady if she is unavailable ED to arrange transport through [facility].
== END 2018-01-17 18:30 | disposition home or self-care (01) ==
PROVIDERS: Emergency Provider Emergency Medicine; PCP Specialist/Technologist Athletic Trainer
DX: I21.4 Non-ST elevation (NSTEMI) myocardial infarction (principal); Z53.29 Procedure and treatment not carried out because of patient's decision for other reasons; I25.10 Atherosclerotic heart disease of native coronary artery without angina pectoris; Z95.5 Presence of coronary angioplasty implant and graft; E11.9 Type 2 diabetes mellitus without complications; J44.9 Chronic obstructive pulmonary disease, unspecified; F17.210 Nicotine dependence, cigarettes, uncomplicated; I10 Essential (primary) hypertension
CPT/HCPCS: 71046; 93005; 96374; 96375; 96376; 99285 ×2; J2060; 36415; 80053; 83690; 80320; 83735; 83880; 84484; 85025; 93010

== ENCOUNTER 2018-01-23 11:31 | Outpatient (RCR) | payer MEDICARE, MEDICAID, SELFPAY | END 2018-02-06 23:59 | disposition home or self-care (01) | LOC: CR 11:31 | PROVIDERS: PCP Specialist/Technologist Athletic Trainer; Visit Provider Family Medicine | DX: I25.2 Old myocardial infarction (principal); Z51.89 Encounter for other specified aftercare ==

== ENCOUNTER 2018-04-28 16:07 | Inpatient (IN) | payer MEDICARE, MEDICAID, SELFPAY ==
[2018-04-28 15:56] VITALS: BP 137/109; PULSE 80; RESP 16; TEMP 36.9; O2SAT 96
--- NOTE | 2018-04-28 16:02 | DI.RAD_ITS ---
SYMPTOMS/DIAGNOSIS: PAIN S/P FALL ONTO LEFT HIP LEFT HIP AND PELVIS: Three views were obtained and show intertrochanteric fracture of the left femur with varus angulation at the fracture site. No additional fractures seen.
[2018-04-28] MEDS: HYDROmorphone 2 MG/ML VIAL IVP ×4 (16:21→21:33)
--- NOTE | 2018-04-28 16:51 | ED.GENADUL_ITS ---
Discharge Plan Disposition Patient Disposition: [facility] INPATIENT Condition: Stable Discharge Details Chief Complaint: Orthopedic Clinical Impression: Closed fracture of left hip Reason For Visit: GLORIAEX Primary Care Provider: Devin Barron ED Provider: Edison Salas [place] Meds and New Rx's Prescriptions: No Action furosemide 40 MG tablet 40 mg PO BID RF: 0 omeprazole 20 MG capsule,delayed release(DR/EC) 40 mg PO DAILY RF: 0 PROVENTIL HFA 18 GM HFA.AER.AD 1 puff Inhalation Q4H PRN RF: 0 bisoprolol fumarate 5 MG tablet 5 mg PO DAILY Qty: 90 RF: 3 fluticasone-salmeterol [Advair Diskus] 1 EACH blister with device 1 ea Inhalation BID RF: 0 hydromorphone [Dilaudid] 2 MG tablet 2 mg PO Q6H PRN PRN (Reason: Severe Pain) Qty: 5 RF: 0 isosorbide mononitrate 30 MG tablet extended release 24 hr 30 mg PO DAILY Qty: 30 RF: 0 atorvastatin [Lipitor] 80 MG tablet 80 mg PO DAILY RF: 0 docusate sodium [Doc-Q-Lace] 100 MG capsule 100 mg PO PRN PRNRF: 0 umeclidinium [Incruse Ellipta] 1 PUFF blister with device 62.5 mcg Inhalation DAILY RF: 0 aspirin 81 MG tablet,chewable 81 mg PO DAILY Qty: 30 RF: 0 lorazepam 1 MG tablet 1 mg PO QID PRN PRNQty: 4 RF: 0 nitroglycerin 0.4 MG tablet, sublingual 0.4 mg Sublingual PRN PRNRF: 0 metoprolol succinate 25 MG tablet extended release 24 hr 25 mg PO DAILY AM RF: 0 losartan 50 MG tablet 50 mg PO DAILY AM RF: 0 diltiazem HCl [Cartia XT] 240 MG capsule,extended release 24hr 240 mg PO DAILY RF: 0 venlafaxine 100 MG tablet 100 mg PO BID RF: 0 isosorbide mononitrate 60 MG tablet extended release 24 hr 60 mg PO DAILY AM RF: 0 digoxin 125 MCG tablet 125 mcg PO DAILY RF: 0 rivaroxaban [Xarelto] 20 MG tablet 20 mg PO DAILY RF: 0 clopidogrel 75 MG tablet 75 mg PO DAILY RF: 0 acetaminophen 500 MG tablet 500 mg PO PRN PRNRF: 0 Medical Decision Making 62 yo male with hx of cad on hospice who comes in with left hip pain. 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 Unable to move left hip due to pain and leg is rotated on exam, suspect fx. Has intact distal sensation and pulses. Pt at this time states he doesn't want any interventions done but does want an xray to confirm fx. Denies head trauma or loc so odubt tbi Pt's xray confirms left hip fx. After explaining quality of life with surgery vs no surgery the patient has decided he would want to be admitted. Spoke with Dr. Lanza from palliative and states pt can be admitted to hospitalist given his medicare. I did speak with Dr. Russ who will see the pt, Dr. Bucio will admiit the patient. Differential Diagnosis fracture, sprain Medical Records Medical records reviewed: Yes I reviewed the patient's medical records. Imaging Data Radiologic Study: Attestation: I personally reviewed and interpreted this imaging study as follows: Imaging: X-Ray My impression: left hip fracture Lab Data Lab results reviewed: Yes I reviewed the patient's lab results. ECG Data Attestation: I personally reviewed and interpreted this ECG (s) as follows: Prior ECG tracings: available for review Interpretation: afib, rate of 116, no acute ischemic changes HPI General Mode of arrival: ambulatory . Date/Time Provider Initiated Documentation: 04/28/18 16:32 . Limitations to Documentation: no limitations . Information obtained by: patient . History of Present Illness 62 year old M presents to the emergency department with the chief complaint of left hip pain, described as moderate, with intensity rated at 5. Quality is described as stabbing, and is localized to the left and lower extremity. Patient reports no radiation. Patient started experiencing this hour(s) (1) and it has been constant. Rest improves symptom(s), Movement worsens symptoms . Patient notes no other symptoms.. Patient did receive the following treatments prior to arrival, none Related Data Home Medications Medication Instructions Recorded Confirmed atorvastatin [Lipitor] 80 mg PO DAILY 12/18/16 01/13/18 docusate sodium [Doc-Q-Lace] 100 mg PO PRN PRN 12/18/16 01/13/18 umeclidinium [Incruse Ellipta] 62.5 mcg INHALATION DAILY 12/18/16 01/13/18 fluticasone-salmeterol [Advair 1 ea INHALATION BID 02/12/17 01/13/18 Diskus] aspirin 81 mg PO DAILY #30 chew 06/22/17 01/13/18 lorazepam 1 mg PO QID PRN PRN #4 tab 06/22/17 01/13/18 Proventil Hfa 1 puff INHALATION Q4H PRN inhaler 09/10/17 01/13/18 bisoprolol fumarate 5 mg PO DAILY #90 tab-cap 09/10/17 furosemide 40 mg PO BID tab-cap 09/10/17 01/13/18 omeprazole 40 mg PO DAILY tab-cap 09/10/17 01/13/18 acetaminophen 500 mg PO PRN PRN 01/09/18 01/13/18 clopidogrel 75 mg PO DAILY 01/09/18 01/13/18 digoxin 125 mcg PO DAILY 01/09/18 01/13/18 diltiazem HCl [Cartia XT] 240 mg PO DAILY 01/09/18 01/13/18 isosorbide mononitrate 60 mg PO DAILY AM 01/09/18 01/13/18 losartan 50 mg PO DAILY AM 01/09/18 01/13/18 metoprolol succinate 25 mg PO DAILY AM 01/09/18 01/13/18 nitroglycerin 0.4 mg SUBLINGUAL PRN PRN 01/09/18 01/13/18 rivaroxaban [Xarelto] 20 mg PO DAILY 01/09/18 01/13/18 venlafaxine 100 mg PO BID 01/09/18 01/13/18 hydromorphone [Dilaudid] 2 mg PO Q6H PRN PRN #5 tab 01/17/18 isosorbide mononitrate 30 mg PO DAILY #30 tabcr 01/17/18 Previous Rx's Medication Instructions Recorded aspirin 81 mg PO DAILY #30 chew 06/22/17 lorazepam 1 mg PO QID PRN PRN #4 tab 06/22/17 bisoprolol fumarate 5 mg PO DAILY #90 tab-cap 09/10/17 hydromorphone [Dilaudid] 2 mg PO Q6H PRN PRN #5 tab 01/17/18 isosorbide mononitrate 30 mg PO DAILY #30 tabcr 01/17/18 Allergies Allergy/AdvReac Type Severity Reaction Status Date / Time metoprolol AdvReac fatigue Unverified 01/09/18 14:32 General Stated Complaint: Orthopedic MARC: 3 Review of Systems Review of Systems All systems reviewed & are unremarkable except as noted in HPI and below Constitutional Denies chills, Denies fever(s) and Denies weakness Eyes Denies loss of vision ENT Denies change in voice Cardiovascular Denies chest pain and Denies dyspnea Respiratory Denies dyspnea Gastrointestinal Denies abdominal pain, Denies nausea and Denies vomiting Genitourinary Denies dysuria Musculoskeletal Denies joint swelling Integumentary/Breasts Denies rash Neurologic Denies loss of vision and Denies weakness Psychiatric Denies depression Endocrine Denies cold intolerance and Denies heat intolerance Allergic/Immunologic Denies urticaria PFSH Social History Smoking/Tobacco Use Status: Current every day Exam Const General: no acute distress Orientation: alert HENMT Head: normal to inspection Ears: external ears normal General nose exam: external nose normal Mouth: moist mucous membranes Eyes General: appearance normal, both eyes and all related structures Neck Neck: normal visual inspection Resp Effort & Inspection: normal respiratory effort and able to speak in complete sentences Cardio Rate: regular rate Skin General skin exam: no rashes or lesions noted Neuro General: alert and oriented x3 Extrem General: normal capillary refill Psych Mental Status: mental status grossly normal Course Vital Signs Temperature 36.9 C 04/28/18 15:56 Pulse 80 04/28/18 15:56 Respiratory Rate 16 04/28/18 15:56 Blood Pressure 137/109 H 04/28/18 15:56 Pulse Oximetry 96 04/28/18 15:56 Temperature 36.9 C 04/28/18 15:56 Temperature Source Skin 04/28/18 15:56 Pulse 80 04/28/18 15:56 Respiratory Rate 16 04/28/18 15:56 Respiratory Effort 04/28/18 15:58 Blood Pressure 137/109 H 04/28/18 15:56 Blood Pressure Position Supine 04/28/18 15:56 Pulse Oximetry 96 04/28/18 15:56 Oxygen Delivery Method Room Air 04/28/18 15:56 Oxygen Flow Rate 0 04/28/18 15:56 Pain Level 10 04/28/18 15:56
--- NOTE | 2018-04-28 16:54 | DI.VRAD_ITS ---
EXAM: XR Left Hip with Pelvis when Performed, 2 or 3 Views EXAM DATE/TIME: 04/28/2018 4:04 PM CLINICAL HISTORY: 62 years old, male; Injury or trauma; Fall; Initial encounter; Blunt trauma (contusions or hematomas); Left; Hip TECHNIQUE: XR Left hip with pelvis when performed, 2 or 3 views COMPARISON: No relevant prior studies available. FINDINGS: Bones/joints:. There are skeletal degenerative changes. There is an angulated moderately displaced left intertrochanteric hip fracture. Soft tissues: There is a left-sided vascular graft in the medial upper thigh. Vascular calcifications are seen. Surgical clips overlie the right medial thigh and pelvis. There is a moderate amount of stool in the rectum which can be seen with constipation. IMPRESSION: 1. Left intertrochanteric hip fracture. 2. Other findings as above. Dictated and Authenticated by: Rekha Arreola MD. Ordering:JEANETH SIMMONS MD
[2018-04-28 16:57] LABS: Abs Immature Grans 0.05 k/cumm (0.0-0.09); Absolute Basophil Count 0.05 k/cumm (0.0-0.2); Absolute Eosinophil Count 0.47 k/cumm (0.0-0.7); Absolute Lymphocyte Count 1.25 k/cumm (1.2-3.4); Absolute Monocyte Count 0.63 k/cumm (0.11-0.7); Basophils % 0.4; HCT 47.7 % (40.0-50.0); HGB 16.4 g/dL (13.5-17.5); Immature Grans % 0.4; Lymphocytes % 10.6; Mean Corp. HGB Concentration 34.4 g/dL (32.0-36.0); Mean Corpuscular Hemoglobin 36.5 pg (27.0-33.0); Mean Corpuscular Volume 106.2 fL (80-95); Mean Platelet Volume 9.6 fL (8.0-11.0); Monocytes % 5.4; Neutrophils % 79.2; Platelet Count 216 x1000/uL (130-400); RBC 4.49 m/cumm (4.50-6.00); RBC Distribution Width 15.4 % (11.8-14.1); White Blood Cell Count 11.75 k/cumm (4.4-10.8)
[2018-04-28 17:03] LABS: Absolute Neutrophil Count 9.31 k/cumm (1.2-6.7)
[2018-04-28 17:13] LABS: PTT Activated 24.2 sec (21.0-31.4); Prothrombin Time 10.1 sec (9.3-10.8)
[2018-04-28 17:14] LABS: ALT 32 U/L (12-78); AST 25 U/L (15-37); Albumin 3.7 g/dL (3.4-5.0); Alkaline Phosphatase 94 U/L (46-116); Anion Gap 11.8 mmol/L (3-11); BUN 10 mg/dL (7-18); Bilirubin, Total 0.7 mg/dL (0.2-1.0); CO2 24.2 mmol/L (21.0-32.0); CREATININE 1.24 mg/dL (0.70-1.30); Chloride 100 mmol/L (98-107); Estimated GFR 59.27 (mL/min/1.73m2); Glucose 92 mg/dL (70-100); Potassium 4.1 mmol/L (3.5-5.1); Sodium 136 mmol/L (136-145); Total Protein 7.1 g/dL (6.4-8.2); Troponin I 0.06 ng/mL (0.00-0.06)
[2018-04-28 17:24] LABS: Diff Comment RBC Morph Reviewed; Macrocytosis 3+
[2018-04-28] MEDS: HYDROmorphone 2 MG TAB PO (17:45)
--- NOTE | 2018-04-28 17:51 | HPE_ITS ---
Date of service: 04/28/18 Time of Service: 17:43 Assessment and Plan (1) Hip fracture: Current visit: Yes Status: Acute Patient initially unsure if he wanted surgery, but given he is still active and surgery is likely to improve his life and decrease pain, he agrees to proceed. Dr. Russ has been consulted. Initial plan is for surgery tomorrow. He is on aspirin and Plavix, but he has been taken off of the anticoagulant. He does have a good deal of cardiac history and risk, but given the acuity of the situation and his goals of care, I do not think that delaying the surgery would be in his best interest. For now, we are managing pain with relatively high dose of opiates given his tolerance. His medical therapy including opiates and benzodiazepine may have increased his fall risk in combination with his history of foot drop but given his goals of care we will not change this aspect of his medical regimen. (2) Coronary artery disease: Current visit: Yes Status: Chronic Patient is on hospice related to severe coronary artery and vascular disease with chronic angina. His isosorbide was also recently increased, but he is not hypotensive. His EKG and troponin is not consistent with acute ischemia. I am holding his aspirin and Plavix for surgery, but otherwise continue his medical therapy including statin and beta-yadira and resuming his antiplatelet agents when cleared by surgery. (3) Congestive heart failure (CHF): Current visit: Yes Status: Chronic Secondary to ischemic cardiomyopathy with ejection fraction slightly reduced to 40-45% on echocardiogram in June of this year. He does not appear to be fluid overloaded at this point. We will continue his chronic medications. (4) COPD (chronic obstructive pulmonary disease): Current visit: Yes Status: Chronic His lung exam is consistent with severe disease, but he does not have an acute exacerbation. We will continue his chronic inhalers. I offered nicotine replacement and discussed smoking cessation, but he declines at this point. He does not have an interest in quitting smoking. (5) GERD (gastroesophageal reflux disease): Current visit: Yes Status: Chronic Continue PPI. (6) Constipation due to opioid therapy: Current visit: Yes Status: Acute Continue bowel regimen. (7) Discharge planning issues: Current visit: Yes Status: Acute DNR/DNI on hospice. (8) DVT prophylaxis: Current visit: Yes Status: Acute SCDs pending surgery. Low molecular weight heparin at the discretion of the surgeon after surgery. History of Present Illness Narrative: 62-year-old male who is on hospice for chronic severe angina related to coronary artery disease is presenting with severe left-sided hip pain after he tripped and fell today. Patient states he was in his normal state of health this morning. He was quite tired and slept in. He then decided to help his friend set up his television. While backing up slightly, the cords caught his flip flop style sandals and he tripped and fell on his left side striking his hip directly with immediate onset of severe pain. He was unable to get up and called for emergency services. Denies any feeling of dizziness, chest pain out of the ordinary, palpitations, or weakness prior to the fall. He does have chronic foot drop that he feels might have contributed. He did not strike his head. Note, he has been increasing his pain medication, and started on long-acting morphine sulfate 30 mg twice a day today. Review of Systems Review of Systems As above. No fevers or chills. Has been eating. No headaches or vision changes. No sore throat or oral lesions or difficulty swallowing. No recent cough, nasal congestion, or other cold symptoms. No increase in chronic shortness of breath. No nausea, vomiting, diarrhea, or change in bowel function. He does have a bowel regimen with the chronic opiates. No hematuria or dysuria. No other joint pain other than the hip. No rashes or other skin lesions. No bleeding or bruising. No new weakness or numbness. Has not noticed a change in balance, but states his balance is not great. 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 Unable to work much due to heart disease. Has family close. Smokes 2-3 cigarettes a day. Has 1 alcoholic beverage every few days. No other drug use. Surgical History S/P hernia repair (Acute) Meds Home Medications Medication Instructions Recorded Confirmed Type atorvastatin [Lipitor] 80 mg PO DAILY 12/18/16 01/13/18 History umeclidinium [Incruse Ellipta] 62.5 mcg INHALATION DAILY 12/18/16 01/13/18 History fluticasone-salmeterol [Advair 1 ea INHALATION BID 02/12/17 01/13/18 History Diskus] lorazepam 1 mg PO QID PRN PRN #4 tab 06/22/17 01/13/18 Rx Proventil Hfa 1 puff INHALATION Q4H PRN inhaler 09/10/17 01/13/18 History bisoprolol fumarate 5 mg PO DAILY #90 tab-cap 09/10/17 Rx furosemide 40 mg PO BID tab-cap 09/10/17 01/13/18 History omeprazole 40 mg PO DAILY tab-cap 09/10/17 01/13/18 History clopidogrel 75 mg PO DAILY 01/09/18 01/13/18 History digoxin 125 mcg PO DAILY 01/09/18 01/13/18 History diltiazem HCl [Cartia XT] 240 mg PO DAILY 01/09/18 01/13/18 History isosorbide mononitrate 60 mg PO DAILY AM 01/09/18 01/13/18 History losartan 50 mg PO DAILY AM 01/09/18 01/13/18 History metoprolol succinate 25 mg PO DAILY AM 01/09/18 01/13/18 History nitroglycerin 0.4 mg SUBLINGUAL PRN PRN 01/09/18 01/13/18 History venlafaxine 100 mg PO BID 01/09/18 01/13/18 History hydromorphone [Dilaudid] 2 mg PO Q6H PRN PRN #5 tab 01/17/18 Rx isosorbide mononitrate 30 mg PO DAILY #30 tabcr 01/17/18 Rx morphine 30 mg PO DAILY 04/28/18 04/28/18 History Allergies Allergy/AdvReac Type Severity Reaction Status Date / Time metoprolol AdvReac fatigue Unverified 01/09/18 14:32 Exam Narrative Exam Narrative: General: Alert and oriented x3, though he does become somewhat somnolent when not engaged in conversation. Uncomfortable with movement of leg. HEENT: Atraumatic. Pupils small at 2 mm bilaterally, but reactive. Conjunctive are clear. Moist mucous membranes with oropharynx benign. Neck is supple with no masses or lymphadenopathy. Lungs: Diminished in bases bilaterally with poor air movement diffusely and slight inspiratory and expiratory wheezes. No rales. Cardiovascular: Irregularly irregular rhythm, normal rate. No murmurs gallops or rubs. Pulses palpable dorsalis pedis bilaterally. Abdomen: Active bowel sounds, soft nontender nondistended no masses Extremities: Left leg shortened and laterally rotated at hip. No cyanosis, clubbing, or edema. No other joint redness or swelling. Skin: No rashes, large bruises, or other skin lesions. Neurologic: Cranial nerves grossly intact. Normal coordination, but a bit slow. Does have strength in feet bilaterally, but slightly diminished foot dorsiflexion strength on left. X-ray left hip: Left intertrochanteric hip fracture. Left-sided vascular graft noted. Stool in pelvis consistent with constipation. EKG: Did not personally see the copy of the EKG, but per emergency physician review, atrial fibrillation with no ischemic changes. Results Labs : 04/28/18 16:46 04/28/18 16:46 Laboratory Results - last 24 hr 04/28/18 04/28/18 04/28/18 16:46 16:46 16:46 WBC 11.75 H RBC 4.49 L Hgb 16.4 Hct 47.7 MCV 106.2 H MCH 36.5 H MCHC 34.4 RDW 15.4 H Plt Count 216 MPV 9.6 Immature Gran % 0.4 Neutrophils % 79.2 Lymphocytes % 10.6 Monocytes % 5.4 Eosinophils % 4.0 Basophils % 0.4 Absolute Neutrophils 9.31 H Absolute Lymphocytes 1.25 Absolute Monocytes 0.63 Absolute Eosinophils 0.47 Absolute Basophils 0.05 Differential Comment Rbc morph reviewed RBC Morphology See below Macrocytosis 3+ PT 10.1 INR 1.0 APTT 24.2 Sodium 136 Potassium 4.1 Chloride 100 Carbon Dioxide 24.2 Anion Gap 11.8 H BUN 10 Creatinine 1.24 Estimated GFR/1.73 m2 59.27 Glucose 92 Calcium 9.0 Total Bilirubin 0.7 AST 25 ALT 32 Alkaline Phosphatase 94 Troponin I 0.06 Total Protein 7.1 Albumin 3.7 Last Vital Signs Temp 36.9 C 04/28/18 15:56 Pulse 80 04/28/18 15:56 Resp 16 04/28/18 15:56 BP 137/109 H 04/28/18 15:56 Pulse Ox 96 04/28/18 15:56
--- NOTE | 2018-04-28 17:59 | W.ORTHOCONSU ---
Date of service: 04/28/18 Time of Service: 17:59 History of Present Illness Chief Complaint: Left Hip Pain Narrative: Christofer is a 62-year-old who was helping a friend with a TV. He tripped and landed on the left leg. He had immediate pain. He is unable to walk. He was brought to the [facility] ED. He was diagnosed with a hip fracture. He does have significant cardiac history. He is on hospice care and is a DNR/DNI for severe cardiac disease. He has quite chronic angina although he has been doing well for the last few weeks. He denies any preceding left hip pain. He denies any previous broken bones. He denies numbness or tingling of the left leg. He has had vascular surgery to the left leg. He denies any significant lower extremity edema. Consults Consult date: 04/28/18 Requesting physician: Edison Salas Consult Reason Left Hip Fracture Assessment and Plan (1) Fracture, intertrochanteric, left femur: Current visit: Yes Status: Acute Christofer is a 62-year-old with a displaced left intertrochanteric hip fracture. He is on hospice for severe cardiac dysfunction. However, he still is mobile and active in the community. He uses no assistive device. Therefore, I would recommend fixation of this fracture. I discussed operative and nonoperative treatment options. After discussing these he agrees to proceed with operative intervention. He does wait his DNR/DNI for the time of the procedure. We will use cefazolin for antibiotic prophylaxis. My plan will be for intramedullary nail. I reviewed this with him in detail. I discussed the risks to include bleeding, infection, pain, stiffness, rotation, nonunion, nonunion, damage to nerves and vessels, blood clot, cardia pulmonary demise, . Despite these risks, he elects to proceed. 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 Unable to work much due to heart disease. Has family close. Smokes 2-3 cigarettes a day. Has 1 alcoholic beverage every few days. No other drug use. Surgical History S/P hernia repair (Acute) Exam Narrative Exam Narrative: The left leg is shortened and externally rotated. He is able to dorsiflex and plantarflex ankle. He is also able to extend and flex the great toe. He endorses full sensation over the deep and superficial peroneal nerve and tibial nerve. He has palpable PT and DP pulses. There are no overlying skin disruptions around the left hip. There is no significant swelling appreciated. There is pain to palpation. No pain to palpation of the knee. No pain to palpation of the ankle or foot. Results Last Vital Signs Temp 36.9 C 04/28/18 15:56 Pulse 80 04/28/18 15:56 Resp 16 04/28/18 15:56 BP 137/109 H 04/28/18 15:56 Pulse Ox 96 04/28/18 15:56 Labs : 04/28/18 16:46 04/28/18 16:46 Laboratory Results - last 24 hr 04/28/18 04/28/18 04/28/18 16:46 16:46 16:46 WBC 11.75 H RBC 4.49 L Hgb 16.4 Hct 47.7 MCV 106.2 H MCH 36.5 H MCHC 34.4 RDW 15.4 H Plt Count 216 MPV 9.6 Immature Gran % 0.4 Neutrophils % 79.2 Lymphocytes % 10.6 Monocytes % 5.4 Eosinophils % 4.0 Basophils % 0.4 Absolute Neutrophils 9.31 H Absolute Lymphocytes 1.25 Absolute Monocytes 0.63 Absolute Eosinophils 0.47 Absolute Basophils 0.05 Differential Comment Rbc morph reviewed RBC Morphology See below Macrocytosis 3+ PT 10.1 INR 1.0 APTT 24.2 Sodium 136 Potassium 4.1 Chloride 100 Carbon Dioxide 24.2 Anion Gap 11.8 H BUN 10 Creatinine 1.24 Estimated GFR/1.73 m2 59.27 Glucose 92 Calcium 9.0 Total Bilirubin 0.7 AST 25 ALT 32 Alkaline Phosphatase 94 Troponin I 0.06 Total Protein 7.1 Albumin 3.7 Imaging Imaging Studies: X-ray of the pelvis and left hip demonstrate a externally rotated intertrochanteric hip fracture. There is minimal comminution. There is shortening. There is no extension into the neck or head.
[2018-04-28 18:05] VITALS: BP 106/68; PULSE 82; RESP 18; TEMP 37.2; O2SAT 92
--- NOTE | 2018-04-28 18:05 | OCONE_ITS ---
Date of service: 04/28/18 Time of Service: 17:59 History of Present Illness Chief Complaint: Left Hip Pain Narrative: Christofer is a 62-year-old who was helping a friend with a TV. He tripped and landed on the left leg. He had immediate pain. He is unable to walk. He was brought to the [facility] ED. He was diagnosed with a hip fracture. He does have significant cardiac history. He is on hospice care and is a DNR/ DNI for severe cardiac disease. He has quite chronic angina although he has been doing well for the last few weeks. He denies any preceding left hip pain. He denies any previous broken bones. He denies numbness or tingling of the left leg. He has had vascular surgery to the left leg. He denies any significant lower extremity edema. Consults Consult date: 04/28/18 Requesting physician: Edison Salas Consult Reason Left Hip Fracture Assessment and Plan (1) Fracture, intertrochanteric, left femur: Current visit: Yes Status: Acute Christofer is a 62-year-old with a displaced left intertrochanteric hip fracture. He is on hospice for severe cardiac dysfunction. However, he still is mobile and active in the community. He uses no assistive device. Therefore , I would recommend fixation of this fracture. I discussed operative and nonoperative treatment options. After discussing these he agrees to proceed with operative intervention. He does wait his DNR/DNI for the time of the procedure. We will use cefazolin for antibiotic prophylaxis. My plan will be for intramedullary nail. I reviewed this with him in detail. I discussed the risks to include bleeding, infection, pain, stiffness, rotation, nonunion, nonunion, damage to nerves and vessels, blood clot, cardia pulmonary demise, . Despite these risks, he elects to proceed. 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 Unable to work much due to heart disease. Has family close. Smokes 2-3 cigarettes a day. Has 1 alcoholic beverage every few days. No other drug use. Surgical History S/P hernia repair (Acute) Exam Narrative Exam Narrative: The left leg is shortened and externally rotated. He is able to dorsiflex and plantarflex ankle. He is also able to extend and flex the great toe. He endorses full sensation over the deep and superficial peroneal nerve and tibial nerve. He has palpable PT and DP pulses. There are no overlying skin disruptions around the left hip. There is no significant swelling appreciated. There is pain to palpation. No pain to palpation of the knee. No pain to palpation of the ankle or foot. Results Last Vital Signs Temp 36.9 C 04/28/18 15:56 Pulse 80 04/28/18 15:56 Resp 16 04/28/18 15:56 BP 137/109 H 04/28/18 15:56 Pulse Ox 96 04/28/18 15:56 Labs : 04/28/18 16:46 04/28/18 16:46 Laboratory Results - last 24 hr 04/28/18 04/28/18 04/28/18 16:46 16:46 16:46 WBC 11.75 H RBC 4.49 L Hgb 16.4 Hct 47.7 MCV 106.2 H MCH 36.5 H MCHC 34.4 RDW 15.4 H Plt Count 216 MPV 9.6 Immature Gran % 0.4 Neutrophils % 79.2 Lymphocytes % 10.6 Monocytes % 5.4 Eosinophils % 4.0 Basophils % 0.4 Absolute Neutrophils 9.31 H Absolute Lymphocytes 1.25 Absolute Monocytes 0.63 Absolute Eosinophils 0.47 Absolute Basophils 0.05 Differential Comment Rbc morph reviewed RBC Morphology See below Macrocytosis 3+ PT 10.1 INR 1.0 APTT 24.2 Sodium 136 Potassium 4.1 Chloride 100 Carbon Dioxide 24.2 Anion Gap 11.8 H BUN 10 Creatinine 1.24 Estimated GFR/1.73 m2 59.27 Glucose 92 Calcium 9.0 Total Bilirubin 0.7 AST 25 ALT 32 Alkaline Phosphatase 94 Troponin I 0.06 Total Protein 7.1 Albumin 3.7 Imaging Imaging Studies: X-ray of the pelvis and left hip demonstrate a externally rotated intertrochanteric hip fracture. There is minimal comminution. There is shortening. There is no extension into the neck or head.
[2018-04-28] MEDS: LORazepam 1 MG TAB PO (19:18)
[2018-04-28] MEDS: Acetaminophen 325 MG TAB PO (19:18)
[2018-04-28] MEDS: Budesonide/Formoterol 160/4.5 6 GM 60 PUFF INH IH (20:26)
[2018-04-28] MEDS: Venlafaxine 50 MG TAB 100 MG PO (20:26)
[2018-04-28] MEDS: Normal Saline Flush 10 ML SYR IVP ×3 (20:26→22:04)
[2018-04-28] MEDS: Isosorbide Mononitrate 30 MG TABCR 90 MG PO (20:27)
[2018-04-28] MEDS: Metoprolol CR 25 MG TABCR PO (20:27)
[2018-04-28 23:45] VITALS: BP 129/84; PULSE 83; RESP 20; TEMP 36; O2SAT 87
[2018-04-29] VITALS (21 sets, daily range): BP systolic 83–162; BP diastolic 50–99; PULSE 58–118; RESP 15–23; TEMP 36.2–37; O2SAT 87–99
[2018-04-29] MEDS: Normal Saline Flush 10 ML SYR IVP ×7 (00:07→22:27)
[2018-04-29] MEDS: HYDROmorphone 2 MG/ML VIAL IVP ×12 (01:07→22:26)
[2018-04-29] MEDS: LORazepam 1 MG TAB PO ×2 (06:01→19:44)
[2018-04-29] MEDS: Losartan 50 MG TAB PO (07:06)
[2018-04-29 07:26] LABS: HCT 45.1 % (40.0-50.0); HGB 15.5 g/dL (13.5-17.5); Mean Corp. HGB Concentration 34.4 g/dL (32.0-36.0); Mean Corpuscular Hemoglobin 36.5 pg (27.0-33.0); Mean Corpuscular Volume 106.1 fL (80-95); Mean Platelet Volume 9.9 fL (8.0-11.0); Platelet Count 212 x1000/uL (130-400); RBC 4.25 m/cumm (4.50-6.00); RBC Distribution Width 15.5 % (11.8-14.1); White Blood Cell Count 9.03 k/cumm (4.4-10.8)
[2018-04-29] MEDS: Umeclidinium 7 CAP INHALER 1 CAP IH (07:28)
[2018-04-29] MEDS: Budesonide/Formoterol 160/4.5 6 GM 60 PUFF INH IH ×2 (07:31→19:44)
[2018-04-29] MEDS: Acetaminophen 325 MG TAB PO ×3 (08:05→22:26)
[2018-04-29] MEDS: Isosorbide Mononitrate 30 MG TABCR 90 MG PO ×2 (09:38→19:43)
[2018-04-29] MEDS: Digoxin 0.125 MG TAB PO (09:38)
[2018-04-29] MEDS: Metoprolol CR 25 MG TABCR PO ×3 (09:38→19:44)
--- NOTE | 2018-04-29 10:03 | PDOC.CMIN ---
Care Management Initial Assess REASON FOR HOSPITALIZATION:: Hip Fracture PAST MEDICAL HISTORY/PAST SURGICAL HISTORY:: COPD; current everyday smoker, coronary disease; hx of [place] with stent placement, CABG, Hypertension, Diabetes, Footdrop, Surgical Hx; CABG, Coronary artery stents, hernia repair. PREVIOUS FUNCTIONAL STATUS/SOCIAL/FAMILY SUPPORTS:: Christofer is originally from this area and has a sister, two brothers and a mother who all reside locally. He he has lived in [facility], [place], and spent most of his life in [place], [place]. Christofer currently resides with isaac in a home owned by Stephanie Goddardman in [place], [place], his room is on the second floor. Christofer is currently on Hospice due to CHF, COPD, CAD and vascular disease. Dr. Lim reports Christofer has done well on Hospice and may even be able to graduate someday. CURRENT FUNCTIONAL STATUS:: Christofer is lying in bed with his eyes closed. He communicates with this inspector automatic typewriter but appears drowsy. He reports he will be going to surgery today. He also shared that his home provider is constructing a ground floor room for him and that Hospice supports are going well. ADVANCE DIRECTIVES:: On file at [facility]: Charisse Foote (sister) as agent Has patient been provided with information about the portal?: Yes Did the patient sign up for the portal?: No CODE STATUS:: Full Code INSURANCE COVERAGE / FINANCIAL ISSUES:: Medicare. Medicaid CURRENT HOME/COMMUNITY SERVICES/EQUIPMENT:: Christofer utilizes a cane. He is on disability. PRIMARY CARE PHYSICIAN:: Devin Barron POTENTIAL DISCHARGE NEEDS:: RCT. New PCP coordination. Advance Directive completion. PATIENT/FAMILY EDUCATION NEEDS:: Review of community based services, discharge instructions. ANTICIPATED BARRIERS TO DISCHARGE:: None identified. TRANSPORTATION:: Via private vehicle with his sister Charisse, or Danuta Vizcaino. PLAN:: Christofer will return home when ready per MD. He will follow up with his PCP and plan of care. He will transport home via private vehicle with his sister Charisse, or friend, Danuta.
--- NOTE | 2018-04-29 10:09 | INITIAL_ITS ---
Care Management Initial Assess REASON FOR HOSPITALIZATION:: Hip Fracture PAST MEDICAL HISTORY/PAST SURGICAL HISTORY:: COPD; current everyday smoker, coronary disease; hx of [place] with stent placement, CABG, Hypertension, Diabetes, Footdrop, Surgical Hx; CABG, Coronary artery stents, hernia repair. PREVIOUS FUNCTIONAL STATUS/SOCIAL/FAMILY SUPPORTS:: Christofer is originally from this area and has a sister, two brothers and a mother who all reside locally. He he has lived in [facility] [place], and spent most of his life in [place], [place]. Christofer currently resides with isaac in a home owned by Stephanie Goddardman in [place], [place], his room is on the second floor. Christofer is currently on Hospice due to CHF, COPD, CAD and vascular disease. Dr. Lim reports Christofer has done well on Hospice and may even be able to graduate someday. CURRENT FUNCTIONAL STATUS:: Christofer is lying in bed with his eyes closed. He communicates with this underwriter solicitation director but appears drowsy. He reports he will be going to surgery today. He also shared that his home provider is constructing a ground floor room for him and that Hospice supports are going well. ADVANCE DIRECTIVES:: On file at [facility]: Charisse Foote (sister) as agent Has patient been provided with information about the portal?: Yes Did the patient sign up for the portal?: No CODE STATUS:: Full Code INSURANCE COVERAGE / FINANCIAL ISSUES:: Medicare. Medicaid CURRENT HOME/COMMUNITY SERVICES/EQUIPMENT:: Christofer utilizes a cane. He is on disability. PRIMARY CARE PHYSICIAN:: Devin Barron POTENTIAL DISCHARGE NEEDS:: RCT. New PCP coordination. Advance Directive completion. PATIENT/FAMILY EDUCATION NEEDS:: Review of community based services, discharge instructions. ANTICIPATED BARRIERS TO DISCHARGE:: None identified. TRANSPORTATION:: Via private vehicle with his sister Charisse, or Danuta Vizcaino. PLAN:: Christofer will return home when ready per MD. He will follow up with his PCP and plan of care. He will transport home via private vehicle with his sister Charisse, or friend, Danuta.
--- NOTE | 2018-04-29 10:34 | PHARADMIT ---
Addendum entered by Ubaldo Cox III 05/05/18 12:33: Pharmacy Note Subjective Patient continues to be confused (since surgery ?? delirium) oriented to self only. Pain back to baseline. Objective VS- OK Pain: 6/10 Plts-280 No other labs, Wgt-87.8kg BM yesterday. Assessment Hydromorphine dc'd, only has Oral Morphine (MS-& IR) -home dose Plan MD to work up delirium (AMS) Original Note: Addendum entered by Lilian Henao 05/03/18 10:36: Pharmacy Note Subjective post hip repair Objective pain 6/10, bp 129/89, no labs Assessment hydromorphone PO restarted, enoxparin started Plan return to Hospice when discharged, home has set of stairs and he needs one level living per nursing Original Note: Addendum entered by Lilian Henao 05/02/18 11:51: Pharmacy Note Subjective post hip repair Objective pain 4/10, bp 131/89, no labs Assessment hydromorphone IV and PO stopped, pt has scheduled morphine. clopidogrel restarted Plan return to Hospice when discharged Original Note: Addendum entered by Ubaldo Cox III 05/01/18 10:44: Pharmacy Note Subjective Had Hip (L-femur) repaired Friday evening, doing well. Objective VS-OK Pain:610 no Labs Wgt-86 kg No BM yet Assessment Home BP meds ordered. Plan Continue working with PT, return to Hospice when discharged Original Note: Admission Pharmacy Clinical Review hip fracture Code Status DNR/DNI Current Weight wgt-85.8 kg Renally Cleared and Narrow Therapeutic Index Meds CrCl~ 56 mL/min Meds-OK QTc Value / Action Taken QTc-472 (Effexor, BP Control, Fever BP- 140/87 Tmax- 36.5C Electrolytes reviewed Na- 136 K+4.1 DVT Prophylaxis NONE Opiate Usage / Scheduled Bowel Regimen Ordered Yes Yes Plt/SCr for Heparin / Enoxaparin Plts-212 SCr- 1.24 INR for Warfarin inr-1.0 H/H stable, WBC/Bands H&H- 15.5/45.1 WBC- 9.03 Antibiotic appropriateness na Cultures and Sensitivities na Surgical ABX d/c within 24 hr na DM control / Insulin Dosing BG- 92 Heart Failure (Check EF%) (BUTCH's, B-Block, Diuretics) Digoxin, Lasix, Imdur, NTG,Losartan, Toprol-XL IV to PO Switch No Home Meds Reviewed Yes Home Meds Not Ordered Diltiazem-CD, Plavix. Advair (subst.Symbicort) Comments
[2018-04-29] MEDS: ELECTROLYTE-R SOLUTION 1,000 ML 30 ML IV (13:08)
--- NOTE | 2018-04-29 13:18 | DI.RAD_ITS ---
SYMPTOM/DIAGNOSIS: HIP FX LEFT HIP IN OR: Fluoroscopy Time: 64.4 sec 8.98 mGy C-arm fluoroscopy was utilized by Dr. Russ during open reduction and internal fixation of left intertrochanteric femoral fracture. Hard copy shows gamma nail in place transfixing the fracture fragments.
[2018-04-29] MEDS: fentaNYL 100 MCG/2 ML VIAL IVP ×2 (14:31→14:35)
--- NOTE | 2018-04-29 14:36 | PT.INNT ---
Date of service: 04/29/18 Time of Service: 14:36 PT Notes PHYSICAL THERAPY NOTE 04/29/18 PT Consult received, chart reviewed. Pt having surgery this afternoon, not yet to room. FWW left in room for PT Consult in am Valencia Stratton PT
--- NOTE | 2018-04-29 14:38 | CHAPLAIN ---
Christofer remembered that we had met on a previous admission. He appeared tired and said he was having a rough day. I offered support and to visit any time. He said he would like to talk before he leaves, but is not up to it today. His expects family members will visit later.
--- NOTE | 2018-04-29 15:07 | NUR.NOTE ---
Nursing Note: Pt arrived from PACU in own bed. Pt awake but drowsy. Reporting pain 5/10. Soft BP, 87/66. HR 83. 92% on 2L. Ice pack and pillows applied to left hip. CMST's WNL, palpable pulse, mepilex Ag x2 on left hip. Denies nausea. repositioning self.
--- NOTE | 2018-04-29 15:11 | W.PM.PROGNOT ---
Date of Service Date of service: 04/29/18 Time of Service: 15:11 Assessment and Plan (1) Hip fracture: Current visit: Yes Status: Deleted Tolerated surgery well today with no immediate complications. Will defer restarting antiplatelet agents and diet to Dr. Russ. Will resume pain control agents, including chronic long-acting morphine and as needed hydromorphone. (2) Coronary artery disease: Current visit: Yes Status: Chronic Patient is on hospice related to severe coronary artery and vascular disease with chronic angina. Continue isosorbide, beta-yadira, and statin. His diltiazem was held due to pharmacy is concerned that this was not an active medication, but he has been on this medication per hospice records and the patient's recall. Plan to resume this as well as long as blood pressure is stable postoperatively. Resume antiplatelet agents as above when okayed by surgery, I would presume by tomorrow morning. (3) Congestive heart failure (CHF): Current visit: Yes Status: Chronic Secondary to ischemic cardiomyopathy with ejection fraction slightly reduced to 40-45% on echocardiogram in June of this year. He does not appear to be fluid overloaded at this point. We will continue his chronic medications, no change. (4) COPD (chronic obstructive pulmonary disease): Current visit: Yes Status: Chronic His lung exam is consistent with severe disease, but he does not have an acute exacerbation. We will continue his chronic inhalers. Offer nicotine if requested.. (5) GERD (gastroesophageal reflux disease): Current visit: Yes Status: Chronic Continue PPI. (6) Constipation due to opioid therapy: Current visit: Yes Status: Acute Continue bowel regimen. (7) Discharge planning issues: Current visit: Yes Status: Acute DNR/DNI on hospice. (8) DVT prophylaxis: Current visit: Yes Status: Acute SCDs now. Low molecular weight heparin at the discretion of the surgeon. Subjective Patient reports: still having pain; denies diarrhea, nausea, vomiting and fever Interval history since last seen: Per report, fracture repair went well without complication or excessive blood loss. Patient only complaint is worse pain the left hip currently. He did have a little cough postoperatively, but denies any increase in his chest pain or shortness of breath. No fevers. Exam Narrative Exam Narrative: General: Alert and oriented, more uncomfortable just lying in bed. HEENT: Pupils small at 2 mm bilaterally, but reactive. Conjunctive are clear. Moist mucous membranes Lungs: poor air movement diffusely, no rales or wheezes now Cardiovascular: Irregularly irregular rhythm, normal rate. No murmurs gallops or rubs. Pulses palpable dorsalis pedis bilaterally. Abdomen: Active bowel sounds, soft nontender, nondistended no masses Extremities: Left leg laterally rotated at hip. No cyanosis, clubbing, or edema. Skin: No rashes, large bruises, or other skin lesions. Objective Objective Clinical Data: Abnormal lab results 04/28/18 04/28/18 04/29/18 Range/Units 16:46 16:46 07:05 WBC 11.75 H (4.4-10.8) k/cumm RBC 4.49 L 4.25 L (4.50-6.00) m/cumm MCV 106.2 H 106.1 H (80-95) fL MCH 36.5 H 36.5 H (27.0-33.0) pg RDW 15.4 H 15.5 H (11.8-14.1) % Absolute Neutrophils 9.31 H (1.2-6.7) k/cumm Anion Gap 11.8 H (3-11) mmol/L Vital Signs Temperature 36.7 C 04/29/18 14:40 Temperature Source Tympanic 04/29/18 10:05 Pulse 77 04/29/18 14:40 Pulse Rhythm Irregular 04/29/18 07:45 Respiratory Rate 15 04/29/18 14:40 Respiratory Effort Non-Labored 04/29/18 07:45 Respiratory Depth Normal 04/29/18 07:45 Respiratory Pattern Normal 04/29/18 07:45 Blood Pressure 114/99 H 04/29/18 14:40 Blood Pressure Position Supine 04/28/18 15:56 Pulse Oximetry 92 L 04/29/18 14:40 Respiratory End-tidal CO2 27 04/29/18 14:40 Oxygen Delivery Method Nasal Cannula 04/29/18 14:40 Oxygen Flow Rate 3 04/29/18 14:40 Pain Level 4 04/29/18 14:40 Comment 04/29/18 07:05 Intake & Output 04/28/18 04/29/18 04/29/18 23:59 11:59 23:59 Intake Total 130 / 130 800 / 800 Output Total 400 / 400 75 / 75 Balance -270 / -270 725 / 725 Weight 90.3 kg 85.8 kg Intake: IV 40 / 40 800 / 800 Oral 90 / Output: Urine 400 / 400 Estimated Blood Loss Other: Urine Color Dark Susannah Urine Appearance Clear Clear Urine Odor Normal Emesis Description None Voiding Methods Urinal Laboratory Results WBC 9.03 k/cumm (4.4-10.8) 04/29/18 07:05 RBC 4.25 m/cumm (4.50-6.00) L 04/29/18 07:05 Hgb 15.5 g/dL (13.5-17.5) 04/29/18 07:05 Hct 45.1 % (40.0-50.0) 04/29/18 07:05 MCV 106.1 fL (80-95) H 04/29/18 07:05 MCH 36.5 pg (27.0-33.0) H 04/29/18 07:05 MCHC 34.4 g/dL (32.0-36.0) 04/29/18 07:05 RDW 15.5 % (11.8-14.1) H 04/29/18 07:05 Plt Count 212 x1000/uL (130-400) 04/29/18 07:05 MPV 9.9 fL (8.0-11.0) 04/29/18 07:05 Immature Gran % 0.4 04/28/18 16:46 Neutrophils % 79.2 04/28/18 16:46 Lymphocytes % 10.6 04/28/18 16:46 Monocytes % 5.4 04/28/18 16:46 Eosinophils % 4.0 04/28/18 16:46 Basophils % 0.4 04/28/18 16:46 Absolute Neutrophils 9.31 k/cumm (1.2-6.7) H 04/28/18 16:46 Absolute Lymphocytes 1.25 k/cumm (1.2-3.4) 04/28/18 16:46 Absolute Monocytes 0.63 k/cumm (0.11-0.7) 04/28/18 16:46 Absolute Eosinophils 0.47 k/cumm (0.0-0.7) 04/28/18 16:46 Absolute Basophils 0.05 k/cumm (0.0-0.2) 04/28/18 16:46 Differential Comment Rbc morph reviewed 04/28/18 16:46 RBC Morphology See below 04/28/18 16:46 Macrocytosis 3+ 04/28/18 16:46 PT 10.1 sec (9.3-10.8) 04/28/18 16:46 INR 1.0 (1.0-3.5) 04/28/18 16:46 APTT 24.2 sec (21.0-31.4) 04/28/18 16:46 Sodium 136 mmol/L (136-145) 04/28/18 16:46 Potassium 4.1 mmol/L (3.5-5.1) 04/28/18 16:46 Chloride 100 mmol/L (98-107) 04/28/18 16:46 Carbon Dioxide 24.2 mmol/L (21.0-32.0) 04/28/18 16:46 Anion Gap 11.8 mmol/L (3-11) H 04/28/18 16:46 BUN 10 mg/dL (7-18) 04/28/18 16:46 Creatinine 1.24 mg/dL (0.70-1.30) 04/28/18 16:46 Estimated GFR/1.73 m2 59.27 (mL/min/1.73m2) 04/28/18 16:46 Glucose 92 mg/dL (70-100) 04/28/18 16:46 Calcium 9.0 mg/dL (8.5-10.1) 04/28/18 16:46 Total Bilirubin 0.7 mg/dL (0.2-1.0) 04/28/18 16:46 AST 25 U/L (15-37) 04/28/18 16:46 ALT 32 U/L (12-78) 04/28/18 16:46 Alkaline Phosphatase 94 U/L (46-116) 04/28/18 16:46 Troponin I 0.06 ng/mL (0.00-0.06) 04/28/18 16:46 Total Protein 7.1 g/dL (6.4-8.2) 04/28/18 16:46 Albumin 3.7 g/dL (3.4-5.0) 04/28/18 16:46
[2018-04-29] MEDS: Furosemide 40 MG TAB PO (15:50)
[2018-04-29] MEDS: Venlafaxine 50 MG TAB 100 MG PO (19:43)
[2018-04-30] MEDS: HYDROmorphone 2 MG TAB PO ×5 (00:58→23:15)
[2018-04-30] MEDS: Losartan 50 MG TAB PO (04:23)
[2018-04-30] MEDS: LORazepam 1 MG TAB PO ×3 (04:23→20:24)
[2018-04-30] MEDS: Umeclidinium 7 CAP INHALER 1 CAP IH (07:22)
[2018-04-30] MEDS: Budesonide/Formoterol 160/4.5 6 GM 60 PUFF INH IH ×2 (07:23→20:09)
[2018-04-30 07:25] VITALS: O2SAT 94
[2018-04-30 07:35] VITALS: BP 135/98; PULSE 98; RESP 17; TEMP 36.5; O2SAT 94
[2018-04-30] MEDS: Omeprazole 20 MG CAPCR 40 MG PO (08:16)
[2018-04-30 08:17] VITALS: PULSE 98
[2018-04-30] MEDS: Atorvastatin 40 MG TAB 80 MG PO (08:17)
[2018-04-30] MEDS: Digoxin 0.125 MG TAB PO (08:17)
[2018-04-30] MEDS: Isosorbide Mononitrate 30 MG TABCR 90 MG PO ×2 (08:18→20:07)
[2018-04-30] MEDS: Docusate Sodium 100 MG CAP PO (08:19)
[2018-04-30] MEDS: Furosemide 40 MG TAB PO ×2 (08:19→16:11)
[2018-04-30] MEDS: Acetaminophen 325 MG TAB PO ×3 (08:19→20:08)
[2018-04-30] MEDS: Clopidogrel 75 MG TAB PO (08:19)
[2018-04-30] MEDS: Normal Saline Flush 10 ML SYR IVP ×2 (08:19→20:25)
[2018-04-30] MEDS: Venlafaxine 50 MG TAB 100 MG PO ×2 (08:19→20:08)
[2018-04-30] MEDS: Metoprolol CR 25 MG TABCR PO ×3 (08:19→20:08)
--- NOTE | 2018-04-30 08:57 | CMPROGNOTE_ITS ---
Care Management Progress Note S/O: Per MD, surgical intervention went well and Christofer is recovering. He did appear to have periods of confusion when CM met with him, discussing events that did not correspond with one another. He did report feeling very tired. CM will continue to monitor progress and support discharge planning considerations. A: 62 year old male admitted to [facility] 04/28/18 for Hip Fracture--FX at [facility] OR . P: Christofer will return home when ready per MD. He will resume Hospice support; CM will continue to follow. He will transport home via private vehicle with his sister Charisse, or friend, Danuta.
--- NOTE | 2018-04-30 09:04 | IN_ITS ---
Date of service: 04/30/18 Time of Service: 08:35 PT Notes Inpatient Physical Therapy Evaluation Date: 04/30/18 Referring Doctor: Dr. Russ PT Orders: PT CONSULT: s/p IMN for left hip fx. WBAT Precautions: standard, fall, WBAT Patient Profile/Admitting Diagnosis: Patient admitted after fall at home resulting in left hip fx. He underwent IMN 04/29/18. PMHX: severe CAD and chronic angina, currently on hospice care; CHF with cardiomyopathy; h/o OR s/p stent placement and CABG; HTN; severe COPD; GERD; constipation due to opiod therapy; left foot drop Social History/Home Situation: Patient lives in a home with roommate. Typically sleeps on the 2nd floor, although plans to stay on ground floor upon discharge. Current Functional Limitations: Patient reports that he ambulates independently at baseline. Estimates he manages the stairs a dozen times a day. He does not use an assistive device, nor does he utilize an AFO. Equipment Owned/DME: cane Subjective: Patient resting in bed, stating he's anxious to get up. He reports off and on pain in the left hip, and states he was able to sleep well last night. Objective: General Observation: Resting in bed, no lines. No supplemental O2 at time of consult. Mental Status: Alert. Patient is not oriented to person or place, and estimates the date as March 2018. Pain: 7/10 Vital Signs: Resting HR 125, BP 120/89, SaO2 91% on room air. ROM: Right Upper Extremity: WNL Left Upper Extremity: WNL Right Lower Extremity: WNL Left Lower Extremity: Knee motion allows 0-90+ degrees, as assessed functionally. Hip flexion allows 80 degrees, abduction to 10 degrees, both limited by pain. Strength: Right Upper Extremity: grossly 5/5 for all motions Left Upper Extremity: grossly 5/5 for all motions Right Lower Extremity: quads 5/5. Ankle DF 5/5 Left Lower Extremity: quads 3/5. ankle DF 3-/5 Sensation: intact distally Bed Mobility/Transfers: supine->sit: mod A to LEs sit->stand: min A, with max cues for technique and poor carry over stand->sit: min A, with max cues for technique and poor carry over, with patient demonstrating poorly controlled descent Gait: Patient ambulates 3' with WW, min Ax1 and SBA x 1. He requires cues throughout, with significant discomfort with LLE weightbearing. Balance: Static Sitting: fair Dynamic Sitting: fair Static Standing: fair Dynamic Standing: poor Special Tests: Mobility Limitations Standardized Measure [facility] AM-PAC 6 clicks Basic Mobility Inpatient Short Form: Raw Score: 13 Standardized Score: 36 CMS Score: 65% CMS Modifier: CL Informed Consent/Education: Patient instructed in purpose of PT consult and plan of care. Assessment: Patient is a 62 year old male referred to physical therapy services with the diagnosis of left hip fx s/p IMN 04/29/18. Patient presents with clinical signs and symptoms consistent with diagnosis, with significant restrictions in mobility related to acute post-operative status and complicated by extensive medical history, including severe CAD, CHF and COPD. He currently demonstrates the following impairment level findings: 1. Decreased LE strength 2. Decreased LE ROM 3. Altered mental status 4. Pain 5. Decreased bed mobility Impairments are contributing to the following functional limitations: 1. Unable to get in/out of bed independently 2. Gait impairments 3. Unable to ambulate independently 4. Unable to manage stairs [facility] score 65% deficit Patient is assessed as High 29613 complexity based on the following: History: 62 year old male, acutely post-op from IMN nailing, currently on hospice care for severe CAD, CHF and COPD Examination: functional limitations as above Presentation: unstable due to cardiac status Decision Making: high complexity Goals: Goals X1 week 1. Supine-Sit: supervision 2. Sit-Supine: supervision 3. Sit-Stand supervision 4. Stand-Sit: supervision 5. Bed-Chair supervision with WW 6. Chair-Bed supervision with WW 7. Gait: supervision with WW x 30' Plan of Care/Treatment Plan: 1-2x/day, 7 days/week x 1 week. Plan of care has been reviewed with the J[employer] PROGRAM[employer] PROFESSOR providing the service under Physical Therapy direction. Initiate Physical Therapy intervention for strengthening, bed mobility, transfers, gait, stairs, balance training, use of assistive device. DISCHARGE RECOMMENDATIONS: home with continued assistance TREATMENT CODE/TIME: 30 minutes (46503) G Codes in the area mobility of walking and moving around: current status [id number] CL; projected status GP [id number]. Discharge status (if discharging) GP [id number] CL.
--- NOTE | 2018-04-30 10:05 | W.PM.PROGNOT ---
Date of Service Date of service: 04/30/18 Time of Service: 10:06 Assessment and Plan (1) Fracture, intertrochanteric, left femur: Current visit: Yes Status: Acute Christofer is a 62-year-old status post intramedullary nail fixation of a left femur fracture. He is having quite a bit of pain today. He is on chronic opioid therapy at baseline I do think he will need more acute narcotics. I did increase his narcotic pain medication to help make him more comfortable so he may be able to mobilize and return home sooner. He does have significant medical issues but does not seem to have any significant application at this time. He should resume aspirin and Plavix for DVT prophylaxis as per his baseline. Subjective Interval history since last seen: Christofer reports to be doing better but still with significant amount of pain. The majority the pain now is over the left hip and buttock area. He reports increasing soreness of this area. He was able to get up out of the bed and into a chair. However, he is having significant pain at this time. He denies pain in the groin like he had before. He denies pain down the leg. He denies any numbness or tingling. No chest pain or shortness of breath. Exam Narrative Exam Narrative: He is sitting in a chair. He appears to be uncomfortable. The dressings are intact without significant amount of bleedthrough. There is exquisite pain to palpation of the soft tissues of the proximal left hip around the nail insertion point. There is some mild swelling and ecchymosis. Leg positioning appears to be comparable to the contralateral side. No pain with gentle internal and external rotation. Objective Objective Clinical Data: Vital Signs Temperature 36.5 C 04/30/18 07:35 Temperature Source Tympanic 04/30/18 07:35 Pulse 98 H 04/30/18 08:17 Pulse Rhythm Irregular 04/29/18 20:41 Respiratory Rate 17 04/30/18 07:35 Respiratory Effort 04/29/18 20:41 Respiratory Depth Normal 04/29/18 20:41 Respiratory Pattern Normal 04/29/18 20:41 Blood Pressure 135/98 H 04/30/18 07:35 Blood Pressure Position Supine 04/28/18 15:56 Pulse Oximetry 94 L 04/30/18 07:35 Respiratory End-tidal CO2 27 04/29/18 14:40 Oxygen Delivery Method Nasal Cannula 04/30/18 07:35 Oxygen Flow Rate 2 04/30/18 07:35 Pain Level 9 04/30/18 08:19 Comment 04/29/18 07:05 Intake & Output 04/29/18 04/29/18 04/30/18 11:59 23:59 11:59 Intake Total 130 / 130 1334.5 / 1334.5 100 / 100 Output Total 400 / 400 375 / 375 350 / 350 Balance -270 / -270 959.5 / 959.5 -250 / -250 Weight 85.8 kg 86.8 kg Intake: IV 40 / 40 974.5 / 974.5 100 / 100 Oral 90 / 90 360 / 360 Output: Urine 400 / 400 300 / 300 350 / 350 Estimated Blood Loss 75 / 75 Other: Urine Color Dark Susannah Dark Susannah Dark Susannah Urine Appearance Clear Clear Clear Urine Odor Normal Emesis Description None Voiding Methods Urinal Urinal Urinal Laboratory Results WBC 9.03 k/cumm (4.4-10.8) 04/29/18 07:05 RBC 4.25 m/cumm (4.50-6.00) L 04/29/18 07:05 Hgb 15.5 g/dL (13.5-17.5) 04/29/18 07:05 Hct 45.1 % (40.0-50.0) 04/29/18 07:05 MCV 106.1 fL (80-95) H 04/29/18 07:05 MCH 36.5 pg (27.0-33.0) H 04/29/18 07:05 MCHC 34.4 g/dL (32.0-36.0) 04/29/18 07:05 RDW 15.5 % (11.8-14.1) H 04/29/18 07:05 Plt Count 212 x1000/uL (130-400) 04/29/18 07:05 MPV 9.9 fL (8.0-11.0) 04/29/18 07:05 Immature Gran % 0.4 04/28/18 16:46 Neutrophils % 79.2 04/28/18 16:46 Lymphocytes % 10.6 04/28/18 16:46 Monocytes % 5.4 04/28/18 16:46 Eosinophils % 4.0 04/28/18 16:46 Basophils % 0.4 04/28/18 16:46 Absolute Neutrophils 9.31 k/cumm (1.2-6.7) H 04/28/18 16:46 Absolute Lymphocytes 1.25 k/cumm (1.2-3.4) 04/28/18 16:46 Absolute Monocytes 0.63 k/cumm (0.11-0.7) 04/28/18 16:46 Absolute Eosinophils 0.47 k/cumm (0.0-0.7) 04/28/18 16:46 Absolute Basophils 0.05 k/cumm (0.0-0.2) 04/28/18 16:46 Differential Comment Rbc morph reviewed 04/28/18 16:46 RBC Morphology See below 04/28/18 16:46 Macrocytosis 3+ 04/28/18 16:46 PT 10.1 sec (9.3-10.8) 04/28/18 16:46 INR 1.0 (1.0-3.5) 04/28/18 16:46 APTT 24.2 sec (21.0-31.4) 04/28/18 16:46 Sodium 136 mmol/L (136-145) 04/28/18 16:46 Potassium 4.1 mmol/L (3.5-5.1) 04/28/18 16:46 Chloride 100 mmol/L (98-107) 04/28/18 16:46 Carbon Dioxide 24.2 mmol/L (21.0-32.0) 04/28/18 16:46 Anion Gap 11.8 mmol/L (3-11) H 04/28/18 16:46 BUN 10 mg/dL (7-18) 04/28/18 16:46 Creatinine 1.24 mg/dL (0.70-1.30) 04/28/18 16:46 Estimated GFR/1.73 m2 59.27 (mL/min/1.73m2) 04/28/18 16:46 Glucose 92 mg/dL (70-100) 04/28/18 16:46 Calcium 9.0 mg/dL (8.5-10.1) 04/28/18 16:46 Total Bilirubin 0.7 mg/dL (0.2-1.0) 04/28/18 16:46 AST 25 U/L (15-37) 04/28/18 16:46 ALT 32 U/L (12-78) 04/28/18 16:46 Alkaline Phosphatase 94 U/L (46-116) 04/28/18 16:46 Troponin I 0.06 ng/mL (0.00-0.06) 04/28/18 16:46 Total Protein 7.1 g/dL (6.4-8.2) 04/28/18 16:46 Albumin 3.7 g/dL (3.4-5.0) 04/28/18 16:46
--- NOTE | 2018-04-30 11:56 | W.PM.PROGNOT ---
Date of Service Date of service: 04/30/18 Time of Service: 11:56 Assessment and Plan (1) Hip fracture: Current visit: Yes Status: Deleted Postoperative day #1 status post repair of left intertrochanteric hip fracture. Tolerated surgery well today with no complications. Pain control agents, including chronic long-acting morphine and as needed hydromorphone, your adequate. (2) Coronary artery disease: Current visit: Yes Status: Chronic Patient is on hospice related to severe coronary artery and vascular disease with chronic angina. Continue isosorbide, beta-yadira, and statin. His diltiazem was held due to pharmacy is concerned that this was not an active medication. Blood pressure and pulse trending up this morning, will resume diltiazem and give first dose now. He is back on his antiplatelet agents as well. (3) Congestive heart failure (CHF): Current visit: Yes Status: Chronic Secondary to ischemic cardiomyopathy with ejection fraction slightly reduced to 40-45% on echocardiogram in June of this year. He does not appear to be fluid overloaded at this point. We will continue his chronic medications, no change. (4) COPD (chronic obstructive pulmonary disease): Current visit: Yes Status: Chronic His lung exam is consistent with severe disease, but still no signs of an acute exacerbation. We will continue his chronic inhalers. Offer nicotine if requested. (5) GERD (gastroesophageal reflux disease): Current visit: Yes Status: Chronic Continue PPI. (6) Constipation due to opioid therapy: Current visit: Yes Status: Acute Continue bowel regimen. (7) Discharge planning issues: Current visit: Yes Status: Acute DNR/DNI on hospice. (8) DVT prophylaxis: Current visit: Yes Status: Acute SCDs now. Low molecular weight heparin at the discretion of the surgeon. Subjective Patient reports: no new complaints, still having pain and tolerating a regular diet; denies diarrhea, nausea, vomiting, shortness of breath and fever Interval history since last seen: Still getting a lot of pain in the left hip, but significantly better than yesterday. His chest pain is about the same. Exam Narrative Exam Narrative: General: Alert and oriented, more uncomfortable just lying in bed. HEENT: Pupils small at 2 mm bilaterally, but reactive. Conjunctive are clear. Moist mucous membranes Lungs: poor air movement diffusely, no rales or wheezes now Cardiovascular: Irregularly irregular rhythm, normal rate. No murmurs gallops or rubs. Feet warm, well perfused. Abdomen: Active bowel sounds, soft nontender, nondistended. Extremities: Left leg laterally rotated at hip. No cyanosis, clubbing, or edema. Skin: No rashes, large bruises, or other skin lesions. Objective Objective Clinical Data: Vital Signs Temperature 36.5 C 04/30/18 07:35 Temperature Source Tympanic 04/30/18 07:35 Pulse 98 H 04/30/18 08:17 Pulse Rhythm Irregular 04/29/18 20:41 Respiratory Rate 17 04/30/18 07:35 Respiratory Effort 04/29/18 20:41 Respiratory Depth Normal 04/29/18 20:41 Respiratory Pattern Normal 04/29/18 20:41 Blood Pressure 135/98 H 04/30/18 07:35 Blood Pressure Position Supine 04/28/18 15:56 Pulse Oximetry 94 L 04/30/18 07:35 Respiratory End-tidal CO2 27 04/29/18 14:40 Oxygen Delivery Method Nasal Cannula 04/30/18 07:35 Oxygen Flow Rate 2 04/30/18 07:35 Pain Level 5 04/30/18 11:14 Comment 04/29/18 07:05 Intake & Output 04/29/18 04/29/18 04/30/18 11:59 23:59 11:59 Intake Total 130 / 130 1334.5 / 1334.5 100 / 100 Output Total 400 / 400 375 / 375 350 / 350 Balance -270 / -270 959.5 / 959.5 -250 / -250 Weight 85.8 kg 86.8 kg Intake: IV 40 / 40 974.5 / 974.5 100 / 100 Oral 90 / 90 360 / 360 Output: Urine 400 / 400 300 / 300 350 / 350 Estimated Blood Loss 75 / 75 Other: Urine Color Dark Susannah Dark Susannah Dark Susannah Urine Appearance Clear Clear Clear Urine Odor Normal Emesis Description None Voiding Methods Urinal Urinal Urinal Laboratory Results WBC 9.03 k/cumm (4.4-10.8) 04/29/18 07:05 RBC 4.25 m/cumm (4.50-6.00) L 04/29/18 07:05 Hgb 15.5 g/dL (13.5-17.5) 04/29/18 07:05 Hct 45.1 % (40.0-50.0) 04/29/18 07:05 MCV 106.1 fL (80-95) H 04/29/18 07:05 MCH 36.5 pg (27.0-33.0) H 04/29/18 07:05 MCHC 34.4 g/dL (32.0-36.0) 04/29/18 07:05 RDW 15.5 % (11.8-14.1) H 04/29/18 07:05 Plt Count 212 x1000/uL (130-400) 04/29/18 07:05 MPV 9.9 fL (8.0-11.0) 04/29/18 07:05 Immature Gran % 0.4 04/28/18 16:46 Neutrophils % 79.2 04/28/18 16:46 Lymphocytes % 10.6 04/28/18 16:46 Monocytes % 5.4 04/28/18 16:46 Eosinophils % 4.0 04/28/18 16:46 Basophils % 0.4 04/28/18 16:46 Absolute Neutrophils 9.31 k/cumm (1.2-6.7) H 04/28/18 16:46 Absolute Lymphocytes 1.25 k/cumm (1.2-3.4) 04/28/18 16:46 Absolute Monocytes 0.63 k/cumm (0.11-0.7) 04/28/18 16:46 Absolute Eosinophils 0.47 k/cumm (0.0-0.7) 04/28/18 16:46 Absolute Basophils 0.05 k/cumm (0.0-0.2) 04/28/18 16:46 Differential Comment Rbc morph reviewed 04/28/18 16:46 RBC Morphology See below 04/28/18 16:46 Macrocytosis 3+ 04/28/18 16:46 PT 10.1 sec (9.3-10.8) 04/28/18 16:46 INR 1.0 (1.0-3.5) 04/28/18 16:46 APTT 24.2 sec (21.0-31.4) 04/28/18 16:46 Sodium 136 mmol/L (136-145) 04/28/18 16:46 Potassium 4.1 mmol/L (3.5-5.1) 04/28/18 16:46 Chloride 100 mmol/L (98-107) 04/28/18 16:46 Carbon Dioxide 24.2 mmol/L (21.0-32.0) 04/28/18 16:46 Anion Gap 11.8 mmol/L (3-11) H 04/28/18 16:46 BUN 10 mg/dL (7-18) 04/28/18 16:46 Creatinine 1.24 mg/dL (0.70-1.30) 04/28/18 16:46 Estimated GFR/1.73 m2 59.27 (mL/min/1.73m2) 04/28/18 16:46 Glucose 92 mg/dL (70-100) 04/28/18 16:46 Calcium 9.0 mg/dL (8.5-10.1) 04/28/18 16:46 Total Bilirubin 0.7 mg/dL (0.2-1.0) 04/28/18 16:46 AST 25 U/L (15-37) 04/28/18 16:46 ALT 32 U/L (12-78) 04/28/18 16:46 Alkaline Phosphatase 94 U/L (46-116) 04/28/18 16:46 Troponin I 0.06 ng/mL (0.00-0.06) 04/28/18 16:46 Total Protein 7.1 g/dL (6.4-8.2) 04/28/18 16:46 Albumin 3.7 g/dL (3.4-5.0) 04/28/18 16:46
--- NOTE | 2018-04-30 14:52 | NUR.NOTE ---
Nursing Note: Pt talking non-sensicle, asking things like when are the three baby's going to be born and go get the horse and buggy. Pt drowsy. New narcotic medications recently started d/t Fx hip. Charge nurse notified.
[2018-04-30 16:05] VITALS: BP 113/85; PULSE 58; RESP 18; TEMP 37.3; O2SAT 93
[2018-05-01 00:03] VITALS: BP 148/68; PULSE 85; RESP 18; TEMP 37; O2SAT 93
[2018-05-01] MEDS: LORazepam 1 MG TAB PO ×2 (01:06→19:41)
[2018-05-01] MEDS: Acetaminophen 325 MG TAB PO ×4 (01:06→23:48)
[2018-05-01] MEDS: Normal Saline Flush 10 ML SYR IVP ×6 (02:42→21:42)
[2018-05-01] MEDS: HYDROmorphone 2 MG/ML VIAL IVP ×5 (02:42→21:41)
[2018-05-01] MEDS: HYDROmorphone 2 MG TAB PO ×5 (04:31→23:48)
[2018-05-01] MEDS: Losartan 50 MG TAB PO (06:31)
[2018-05-01 06:33] VITALS: PULSE 80
--- NOTE | 2018-05-01 06:44 | NUR.NOTE ---
Nursing Note: Pt was a/o on my arrival and initial assessment. He requested and received ativan at hs. At 0130 pt was not able to settle down and sleep so requested another dose. He became increasingly confused and hallucinating.His mental status has improved and he has better tolerated only dilaudid for pain.
[2018-05-01 07:35] VITALS: BP 129/80; PULSE 90; RESP 18; TEMP 36.9; O2SAT 94
[2018-05-01] MEDS: Isosorbide Mononitrate 30 MG TABCR 90 MG PO ×2 (08:14→19:40)
[2018-05-01] MEDS: Clopidogrel 75 MG TAB PO (08:14)
[2018-05-01 08:15] VITALS: PULSE 90
[2018-05-01] MEDS: Metoprolol CR 25 MG TABCR PO ×3 (08:15→19:41)
[2018-05-01] MEDS: Omeprazole 20 MG CAPCR 40 MG PO (08:15)
[2018-05-01] MEDS: Atorvastatin 40 MG TAB 80 MG PO (08:15)
[2018-05-01] MEDS: Digoxin 0.125 MG TAB PO (08:15)
[2018-05-01] MEDS: Venlafaxine 50 MG TAB 100 MG PO ×2 (08:16→19:38)
[2018-05-01] MEDS: Furosemide 40 MG TAB PO ×2 (08:16→17:16)
--- NOTE | 2018-05-01 08:24 | ROE_ITS ---
REPORT OF OPERATIVE PROCEDURE DATE OF SURGERY April 29, 2018 PREOPERATIVE DIAGNOSIS Left intertrochanteric hip fracture. POSTOPERATIVE DIAGNOSIS Left intertrochanteric hip fracture. SURGERY Intramedullary nail fixation of left intertrochanteric hip fracture. SURGEON Robbi Russ M.D. COMPLAINT INVESTIGATOR Alyssa Sierra PA-C FINDINGS There was a significantly displaced left intertrochanteric hip fracture; it was able to be reduced wi th closed reduction and stabilized with intramedullary nail. ANESTHESIA General with arterial line. ESTIMATED BLOOD LOSS 50 cc. COMPLICATIONS None. DISPOSITION The patient was awakened from anesthesia and taken to the PACU in a stable condition. INDICATION FOR PROCEDURE Christofer is a 62-year-old with significant medical issues. However, he was working at his house with a friend, when he tripped and fell onto the left side. He had a displaced intertrochanteric hip fractu re. I reviewed the images with him and I reviewed treatment options. Even though he was an unhealthy gentleman, he was physically active. Therefore, I encouraged operative intervention to allow mobiliza tion. I reviewed the risks of the procedure to include bleeding, infection, pain, stiffness, damage t o nerves and vessels, malrotation, malunion, nonunion, blood clot. Despite these risks, he elected to proceed. PROCEDURE DESCRIPTION Christofer was greeted in the preoperative holding area. His identity was confirmed and the correct yobani e was identified and marked. The consent was previously signed with the patient. He was taken back to the Operating Room. An anterior line was placed by Anesthesia. He was then induced with cardiac prot ection. Once general anesthetic was on board, he was transitioned over to the fracture table. He was placed down to the perineal post. All bon and placed onto the left lateral decubitus position where a spinal anesthetic was administered. A ti me-out was performed for safe surgery. Prophylactic antibiotics in the form of Cefazolin were adminis tered. All bony prominences of this leg were well-padded. The left arm was placed across his chest. The righ t arm was place on an arm board. The right leg, nonoperative side, was wrapped in a pillow and taped to the leg boom. The left leg was placed into a traction boot. A gentle reduction was performed by so me traction and internal rotation of the leg. X-ray was then used to confirm appropriate reduction. W e had nearly anatomically reduced the fracture without any other means. The leg was held in this posi tion. The left side was then prepped with ChloraPrep and draped in a standard fashion with an iodine- impregnated shower curtain drape. Prophylactic antibiotics in the form of cefazolin were given. A time-out was performed for safe surge ry. Using fluoroscopy, the starting point was identified just proximal to the tip of the greater troc hanter. A 3-cm incision was made through the skin and down through the gluteus fascia. The tip of the greater trochanter was palpated and a starting wire was placed on the tip of the greater trochanter and inserted into the proximal femur heading towards the lesser trochanter. This was confirmed to be in a good position both on the AP and the lateral. A starting reamer was then placed onto the greater troch and the proximal femur was opened. Once this was opened, the Ball-tipped guide wire was placed down the length of the femur and confirmed to be in appropriate position on the AP of the knee. The length of the mary was selected at 380 millimeters. The femur was reamed to 13 millimeters with very m inanjana chatter. Once the reaming was completed, the 11-mm x 380-mm nail was then inserted with light mallet blows. It was positioned to a level allowing the blade to end up in the central portion of the head. Once it was in position, the skin overlying the lateral aspect of the femur where the helical blade will be inserted, was incised down through the skin and deep tissue and the IT band. The triple sleeve was advanced down to the lateral cortex of the femur. The guidewire was inserted through the targeting device and into the femoral head. It was in a central position on the AP and with minimal a djustments in a central position on the lateral. This was then measured as 105 millimeters. The path of the helical blade was then reamed with the tapered reamer. A 105-mm helical blade was inserted. Th is was appropriately positioned without any significant abnormalities or positioning errors. With thi s in position, the flexible screwdriver was used to tighten the set screw, making sure not to fully t ighten to allow some slide. The distal screw was not locked. The targeting jig was removed. Final x-r ays were used to confirm appropriate alignment and reduction of the fracture with placement of the in tramedullary nail. The wounds were then irrigated. The deep fascia was closed with #0-Vicryl. The laith p tissues were closed with #2-0 Vicryl. The skin was closed with traci. Mepilex sliver dressings we re applied. He was transferred over to the hospital bed without difficulty. He tolerated the procedur e well. At the end of the case, all counts were correct.
--- NOTE | 2018-05-01 09:06 | PT.INTREAT ---
Date of service: 05/01/18 Time of Service: 08:35 PT Notes PT Outpatient Treatment Note Date: 05/01/18 SUBJECTIVE: Harvey states that he is feeling well this morning. He was able to sleep last night. Pain number: 12/16 OBJECTIVE: Therapeutic procedures ([id number]). See flow sheet: Initiated seated activities, as noted on flowsheet. Patient requires 50% assist of LAQ on the left, primarily due to pain. Provided skilled instruction in proper exercise performance: Provided skilled manual cues to facilitate proper muscle recruitment and/or movement patterns. Therapeutic Activities - (38057 x1): Patient received gait and transfer training as noted below: Functional Mobility: supine->sit: mod A, with cues for technique and HOB at 35 degrees sit->stand: min A stand->sit: min A with max cues for positioning and technique bed->chair: min A with WW and max cues for positioning and technique Gait: Patient ambulates 6' with WW and min A. He requires cues for use of UE support to offload LLE. He tolerates only minimal WBing on the LLE due to pain and instability. Total Treatment Time: 30 minutes
--- NOTE | 2018-05-01 09:12 | PTTR_ITS ---
Date of service: 05/01/18 Time of Service: 08:35 PT Notes PT Outpatient Treatment Note Date: 05/01/18 SUBJECTIVE: Harvey states that he is feeling well this morning. He was able to sleep last night. Pain number: 12/16 OBJECTIVE: Therapeutic procedures ([id number]). See flow sheet: Initiated seated activities, as noted on flowsheet. Patient requires 50% assist of LAQ on the left, primarily due to pain. Provided skilled instruction in proper exercise performance: Provided skilled manual cues to facilitate proper muscle recruitment and/ or movement patterns. Therapeutic Activities - (63351 x1): Patient received gait and transfer training as noted below: Functional Mobility: supine->sit: mod A, with cues for technique and HOB at 35 degrees sit->stand: min A stand->sit: min A with max cues for positioning and technique bed->chair: min A with WW and max cues for positioning and technique Gait: Patient ambulates 6' with WW and min A. He requires cues for use of UE support to offload LLE. He tolerates only minimal WBing on the LLE due to pain and instability. Total Treatment Time: 30 minutes
[2018-05-01] MEDS: Umeclidinium 7 CAP INHALER 1 CAP IH (09:40)
[2018-05-01] MEDS: Budesonide/Formoterol 160/4.5 6 GM 60 PUFF INH IH ×2 (09:40→19:43)
--- NOTE | 2018-05-01 13:57 | PT.INTREAT ---
Date of service: 05/01/18 Time of Service: 13:55 PT Notes Inpatient Physical Therapy Treatment Note Date: 05/01/18 PRECAUTIONS: Fall Precautions, WBAT L LE SUBJECTIVE: Pt lying in bed watching TV and using computer, agreeable to PT session. OBJECTIVE: PAIN: c/o pain left hip with transfers in/out of bed, not rated BED MOBILITY/TRANSFERS Supine-sit: HOB 30 degrees, CGA for trunk Sit-stand: CGA with FWW Stand-sit: SBA Sit-supine: HOB flat, Katlyn for L LE into bed GAIT Assistive Device: FWW Weight bearing: WBAT L LE Assist: CGA x2 Distance: 20ftx2 Deviation: step to gait pattern, verbal cues provided for sequencing and decreasing step length on left LE. Pt shaky and tired with gait, slight shortness of breath with exertion. Pt demonstrated good self pacing with activity and rest breaks for recovery. THEREX: Performed ankle pumps, quad sets, glute sets x 20 reps. BALANCE: Static sitting: normal Dynamic sitting: normal Static standing : fair Dynamic standing: fair ASSESSMENT: Pt with improved mobility this afternoon with transfers and gait requiring less assistance than am session, fatigues easily and short of breath with exertion due to CHF with cardiomyopathy, pt demonstrated good pacing of activity, requires frequent rest breaks for recovery. Anticipate rehab progress will require some time due to comorbidities. PLAN: Progress strengthening Progress transfers Progress gait training TREATMENT CODE/TIME: 26min TAx1 TPx1 [id number] PT
[2018-05-01 14:29] VITALS: BP 127/69; PULSE 78; RESP 20; TEMP 36.8; O2SAT 93
--- NOTE | 2018-05-01 14:42 | PDOC.CMPRO ---
- If Service Date Differs Date of service: 05/01/18 Time of Service: 14:42 Care Management Progress Note S/O: Christofer is lying in bed when this investment underwriter visits this morning. He is looking at his laptop, though easily engages in conversation. Christofer was hallucinating overnight, he did have some moments of clarity however. He states that he is feeling well this morning, and smiles frequently during discussion. Reviewed CM role and DC plan which remains unchanged at this time. A: 62 y/o male admitted 04/28/18 for Hip fracture P: Christofer will return home on Hospice whom is already following in the community once discharged. Gale sister Charisse, friend Danuta, or RCT to transport once medically cleared.
--- NOTE | 2018-05-01 14:56 | CMPROGNOTE_ITS ---
- If Service Date Differs Date of service: 05/01/18 Time of Service: 14:42 Care Management Progress Note S/O: Christofer is lying in bed when this functional tester typewriters visits this morning. He is looking at his laptop, though easily engages in conversation. Christofer was hallucinating overnight, he did have some moments of clarity however. He states that he is feeling well this morning, and smiles frequently during discussion. Reviewed CM role and DC plan which remains unchanged at this time. A: 62 y/o male admitted 04/28/18 for Hip fracture P: Christofer will return home on Hospice whom is already following in the community once discharged. Gale sister Charisse, friend Danuta, or RCT to transport once medically cleared.
--- NOTE | 2018-05-01 15:44 | W.PM.PROGNOT ---
Date of Service Date of service: 05/01/18 Time of Service: 15:45 Assessment and Plan (1) Hip fracture: Current visit: Yes Status: Deleted Postoperative day #2 status post repair of left intertrochanteric hip fracture. Recovering well. From a more active today. Pain control agents, including chronic long-acting morphine and as needed hydromorphone, are currently adequate. Continue working with physical therapy goal to discharge back home to hospice safe to do so. (2) Coronary artery disease: Current visit: Yes Status: Chronic Patient is on hospice related to severe coronary artery and vascular disease with chronic angina. Continue isosorbide, beta-yadira, and statin. Back on his diltiazem and blood pressure and pulse are in a good range. He is back on his antiplatelet agents as well. (3) Congestive heart failure (CHF): Current visit: Yes Status: Chronic Secondary to ischemic cardiomyopathy with ejection fraction slightly reduced to 40-45% on echocardiogram in June of this year. He does not appear to be fluid overloaded at this point. We will continue his chronic medications, no change. (4) COPD (chronic obstructive pulmonary disease): Current visit: Yes Status: Chronic His lung exam is consistent with severe disease, but still no signs of an acute exacerbation. We will continue his chronic inhalers. Offer nicotine if requested. (5) GERD (gastroesophageal reflux disease): Current visit: Yes Status: Chronic Continue PPI. (6) Constipation due to opioid therapy: Current visit: Yes Status: Acute Continue bowel regimen. (7) Discharge planning issues: Current visit: Yes Status: Acute DNR/DNI on hospice. (8) DVT prophylaxis: Current visit: Yes Status: Acute SCDs now. Low molecular weight heparin at the discretion of the surgeon. Subjective Patient reports: no new complaints, feels better, tolerating a regular diet, voiding w/o difficulty and flatus; denies diarrhea, nausea, vomiting, shortness of breath and fever Interval history since last seen: States he has been able to get up and move more today. Still in pain but, but better controlled. He is eating and drinking. He is anxious to progress to discharge, as he does not want to have to just sit in bed too long. It work with PT today. Exam Narrative Exam Narrative: General: Alert and oriented, more uncomfortable just lying in bed. HEENT: Pupils 2-3 mm bilaterally, but reactive. Conjunctive are clear. Moist mucous membranes Lungs: poor air movement diffusely, no rales or wheezes now Cardiovascular: Irregularly irregular rhythm, normal rate. No murmurs gallops or rubs. Feet warm, well perfused. Abdomen: Active bowel sounds, soft nontender, nondistended. Extremities: Left leg laterally rotated at hip. Able to sit up on the side of the bed by himself, and lift his left leg back into bed during exam using his other leg. No cyanosis, clubbing, or edema. Skin: No rashes, large bruises, or other skin lesions. Objective Objective Clinical Data: Vital Signs Temperature 36.8 C 05/01/18 14:29 Temperature Source Tympanic 05/01/18 14:29 Pulse 78 05/01/18 14:29 Pulse Rhythm Regular 05/01/18 08:00 Respiratory Rate 20 05/01/18 14:29 Respiratory Effort Non-Labored 05/01/18 08:00 Respiratory Depth Normal 05/01/18 08:00 Respiratory Pattern Normal 05/01/18 08:00 Blood Pressure 127/69 05/01/18 14:29 Blood Pressure Position Supine 04/28/18 15:56 Pulse Oximetry 93 L 05/01/18 14:29 Respiratory End-tidal CO2 27 04/29/18 14:40 Oxygen Delivery Method Room Air 05/01/18 14:29 Oxygen Flow Rate 0 05/01/18 14:29 Pain Level 4 05/01/18 14:31 Comment 05/01/18 14:29 Intake & Output 04/30/18 05/01/18 05/01/18 23:59 11:59 23:59 Intake Total 1060 / 1060 250 / 250 Output Total 1150 / 1150 750 / 750 300 / 300 Balance -90 / -90 -500 / -500 -300 / -300 Weight 86 kg Intake: IV 100 / 100 10 / 10 Oral 960 / 960 240 / 240 Output: Urine 1150 / 1150 750 / 750 300 / 300 Other: Urine Color Yellow Yellow Yellow Urine Appearance Clear Clear Comment Post void Voiding Methods Urinal Urinal Urinal Laboratory Results WBC 9.03 k/cumm (4.4-10.8) 04/29/18 07:05 RBC 4.25 m/cumm (4.50-6.00) L 04/29/18 07:05 Hgb 15.5 g/dL (13.5-17.5) 04/29/18 07:05 Hct 45.1 % (40.0-50.0) 04/29/18 07:05 MCV 106.1 fL (80-95) H 04/29/18 07:05 MCH 36.5 pg (27.0-33.0) H 04/29/18 07:05 MCHC 34.4 g/dL (32.0-36.0) 04/29/18 07:05 RDW 15.5 % (11.8-14.1) H 04/29/18 07:05 Plt Count 212 x1000/uL (130-400) 04/29/18 07:05 MPV 9.9 fL (8.0-11.0) 04/29/18 07:05 Immature Gran % 0.4 04/28/18 16:46 Neutrophils % 79.2 04/28/18 16:46 Lymphocytes % 10.6 04/28/18 16:46 Monocytes % 5.4 04/28/18 16:46 Eosinophils % 4.0 04/28/18 16:46 Basophils % 0.4 04/28/18 16:46 Absolute Neutrophils 9.31 k/cumm (1.2-6.7) H 04/28/18 16:46 Absolute Lymphocytes 1.25 k/cumm (1.2-3.4) 04/28/18 16:46 Absolute Monocytes 0.63 k/cumm (0.11-0.7) 04/28/18 16:46 Absolute Eosinophils 0.47 k/cumm (0.0-0.7) 04/28/18 16:46 Absolute Basophils 0.05 k/cumm (0.0-0.2) 04/28/18 16:46 Differential Comment Rbc morph reviewed 04/28/18 16:46 RBC Morphology See below 04/28/18 16:46 Macrocytosis 3+ 04/28/18 16:46 PT 10.1 sec (9.3-10.8) 04/28/18 16:46 INR 1.0 (1.0-3.5) 04/28/18 16:46 APTT 24.2 sec (21.0-31.4) 04/28/18 16:46 Sodium 136 mmol/L (136-145) 04/28/18 16:46 Potassium 4.1 mmol/L (3.5-5.1) 04/28/18 16:46 Chloride 100 mmol/L (98-107) 04/28/18 16:46 Carbon Dioxide 24.2 mmol/L (21.0-32.0) 04/28/18 16:46 Anion Gap 11.8 mmol/L (3-11) H 04/28/18 16:46 BUN 10 mg/dL (7-18) 04/28/18 16:46 Creatinine 1.24 mg/dL (0.70-1.30) 04/28/18 16:46 Estimated GFR/1.73 m2 59.27 (mL/min/1.73m2) 04/28/18 16:46 Glucose 92 mg/dL (70-100) 04/28/18 16:46 Calcium 9.0 mg/dL (8.5-10.1) 04/28/18 16:46 Total Bilirubin 0.7 mg/dL (0.2-1.0) 04/28/18 16:46 AST 25 U/L (15-37) 04/28/18 16:46 ALT 32 U/L (12-78) 04/28/18 16:46 Alkaline Phosphatase 94 U/L (46-116) 04/28/18 16:46 Troponin I 0.06 ng/mL (0.00-0.06) 04/28/18 16:46 Total Protein 7.1 g/dL (6.4-8.2) 04/28/18 16:46 Albumin 3.7 g/dL (3.4-5.0) 04/28/18 16:46
[2018-05-01 17:02] VITALS: BP 145/81; PULSE 87; RESP 19; TEMP 37.4; O2SAT 93
--- NOTE | 2018-05-01 20:42 | W.PM.PROGNOT ---
Date of Service Date of service: 05/01/18 Time of Service: 07:43 Assessment and Plan (1) Fracture, intertrochanteric, left femur: Current visit: Yes Status: Acute Christofer is a 62-year-old status post intramedullary nail fixation of a left femur fracture. His pain is getting better. He is making some progres with mobilization with PT. He should be able to return home on hospice in the next few days. He should resume aspirin and Plavix for DVT prophylaxis as per his baseline. OK for Lovenox if desired, but think ASA/Plavis combination is enough for DVT prevention with less bleeding risk. Subjective Patient reports: no new complaints Interval history since last seen: Christofer was able to mobilize with PT. His pain is improving with the increase in Hydromorphone. He did have hallucinations last night which the nurses attribute to dosing of his home Ativan. He denies any atypical chest pain, fever, or chills. Exam Narrative Exam Narrative: LLE dressings c/d/i. Some swelling and ecchymosis. Minimal pain with ER/IR of the hip. +ADF/APF/EHL/FHL SILT DP/SP/Tib Objective Objective Clinical Data: Vital Signs Temperature 37.4 C 05/01/18 17:02 Temperature Source Tympanic 05/01/18 17:02 Pulse 88 05/02/18 05:19 Pulse Rhythm Regular 05/01/18 22:57 Respiratory Rate 19 05/01/18 17:02 Respiratory Effort Non-Labored 05/01/18 22:57 Respiratory Depth Normal 05/01/18 22:57 Respiratory Pattern Normal 05/01/18 22:57 Blood Pressure 129/83 05/02/18 05:19 Blood Pressure Position Supine 04/28/18 15:56 Pulse Oximetry 93 L 05/01/18 17:02 Respiratory End-tidal CO2 27 04/29/18 14:40 Oxygen Delivery Method Room Air 05/01/18 17:02 Oxygen Flow Rate 0 05/01/18 17:02 Pain Level 7 05/01/18 23:48 Comment 05/01/18 14:29 Intake & Output 05/01/18 05/01/18 05/02/18 11:59 23:59 11:59 Intake Total 250 / 250 270 / 270 Output Total 750 / 750 600 / 600 200 / 200 Balance -500 / -500 -330 / -330 -200 / -200 Weight 86 kg 87.6 kg Intake: IV 30 / 30 Oral 240 / 240 240 / 240 Output: Urine 750 / 750 600 / 600 200 / 200 Other: Urine Color Yellow Light Susannah Light Susannah Urine Appearance Clear Clear Clear Comment Post void Voiding Methods Urinal Urinal Urinal Laboratory Results WBC 9.03 k/cumm (4.4-10.8) 04/29/18 07:05 RBC 4.25 m/cumm (4.50-6.00) L 04/29/18 07:05 Hgb 15.5 g/dL (13.5-17.5) 04/29/18 07:05 Hct 45.1 % (40.0-50.0) 04/29/18 07:05 MCV 106.1 fL (80-95) H 04/29/18 07:05 MCH 36.5 pg (27.0-33.0) H 04/29/18 07:05 MCHC 34.4 g/dL (32.0-36.0) 04/29/18 07:05 RDW 15.5 % (11.8-14.1) H 04/29/18 07:05 Plt Count 212 x1000/uL (130-400) 04/29/18 07:05 MPV 9.9 fL (8.0-11.0) 04/29/18 07:05 Immature Gran % 0.4 04/28/18 16:46 Neutrophils % 79.2 04/28/18 16:46 Lymphocytes % 10.6 04/28/18 16:46 Monocytes % 5.4 04/28/18 16:46 Eosinophils % 4.0 04/28/18 16:46 Basophils % 0.4 04/28/18 16:46 Absolute Neutrophils 9.31 k/cumm (1.2-6.7) H 04/28/18 16:46 Absolute Lymphocytes 1.25 k/cumm (1.2-3.4) 04/28/18 16:46 Absolute Monocytes 0.63 k/cumm (0.11-0.7) 04/28/18 16:46 Absolute Eosinophils 0.47 k/cumm (0.0-0.7) 04/28/18 16:46 Absolute Basophils 0.05 k/cumm (0.0-0.2) 04/28/18 16:46 Differential Comment Rbc morph reviewed 04/28/18 16:46 RBC Morphology See below 04/28/18 16:46 Macrocytosis 3+ 04/28/18 16:46 PT 10.1 sec (9.3-10.8) 04/28/18 16:46 INR 1.0 (1.0-3.5) 04/28/18 16:46 APTT 24.2 sec (21.0-31.4) 04/28/18 16:46 Sodium 136 mmol/L (136-145) 04/28/18 16:46 Potassium 4.1 mmol/L (3.5-5.1) 04/28/18 16:46 Chloride 100 mmol/L (98-107) 04/28/18 16:46 Carbon Dioxide 24.2 mmol/L (21.0-32.0) 04/28/18 16:46 Anion Gap 11.8 mmol/L (3-11) H 04/28/18 16:46 BUN 10 mg/dL (7-18) 04/28/18 16:46 Creatinine 1.24 mg/dL (0.70-1.30) 04/28/18 16:46 Estimated GFR/1.73 m2 59.27 (mL/min/1.73m2) 04/28/18 16:46 Glucose 92 mg/dL (70-100) 04/28/18 16:46 Calcium 9.0 mg/dL (8.5-10.1) 04/28/18 16:46 Total Bilirubin 0.7 mg/dL (0.2-1.0) 04/28/18 16:46 AST 25 U/L (15-37) 04/28/18 16:46 ALT 32 U/L (12-78) 04/28/18 16:46 Alkaline Phosphatase 94 U/L (46-116) 04/28/18 16:46 Troponin I 0.06 ng/mL (0.00-0.06) 04/28/18 16:46 Total Protein 7.1 g/dL (6.4-8.2) 04/28/18 16:46 Albumin 3.7 g/dL (3.4-5.0) 04/28/18 16:46
[2018-05-02] MEDS: Acetaminophen 325 MG TAB PO ×4 (05:15→18:29)
[2018-05-02] MEDS: Losartan 50 MG TAB PO (05:16)
[2018-05-02 05:19] VITALS: BP 129/83; PULSE 88
[2018-05-02 07:40] VITALS: BP 131/89; PULSE 82; RESP 18; TEMP 36.5; O2SAT 94
--- NOTE | 2018-05-02 08:29 | PDOC.CMPRO ---
- If Service Date Differs Date of service: 05/02/18 Time of Service: 08:29 Care Management Progress Note S/O:Christofer is asleep when CM enters the room, nursing reports he continues to have some confusion. Pain medications are being adjusted today hopefully to decrease his confusion. Christofer all with plan to return home with family support at time of discharge. Christofer continues to work with PT to meet goals to return home with family support. A:62 y/o male admitted 04/28/18 for Hip fracture P: Christofer will return home on Hospice whom is already following in the community once discharged. Gale sister Charisse, friend Danuta, or RCT to transport once medically cleared.
[2018-05-02 09:13] VITALS: PULSE 85
[2018-05-02] MEDS: Digoxin 0.125 MG TAB PO (09:13)
[2018-05-02] MEDS: Venlafaxine 50 MG TAB 100 MG PO ×2 (09:13→19:33)
[2018-05-02] MEDS: Docusate Sodium 100 MG CAP PO (09:14)
[2018-05-02] MEDS: Atorvastatin 40 MG TAB 80 MG PO (09:14)
[2018-05-02] MEDS: Furosemide 40 MG TAB PO ×2 (09:14→15:32)
[2018-05-02] MEDS: Omeprazole 20 MG CAPCR 40 MG PO (09:14)
[2018-05-02] MEDS: Metoprolol CR 25 MG TABCR PO ×3 (09:14→19:32)
[2018-05-02] MEDS: Isosorbide Mononitrate 30 MG TABCR 90 MG PO ×2 (09:14→19:33)
[2018-05-02] MEDS: Clopidogrel 75 MG TAB PO (09:15)
--- NOTE | 2018-05-02 11:26 | PT.INTREAT ---
Date of service: 05/02/18 Time of Service: 11:26 PT Notes Inpatient Physical Therapy Treatment Note Date: 05/02/18 PRECAUTIONS: Fall, WBAT on L SUBJECTIVE: Harvey states that he is having a little pain this morning. OBJECTIVE: PAIN: Patient c/o pain in L hip with ther ex and weigth bearing BED MOBILITY/TRANSFERS Supine-sit: S with HOB at 10 degrees Sit-stand: CGA Stand-sit: SBA GAIT Assistive Device: FWW Weight bearing: WBAT on L Assist: CGA Distance: 20' Deviation: Pain THEREX: Patient completed a LE strengthening and stabilization program, as per flow sheet. He required assist with hip abduction and SLR exercsies. ASSESSMENT: Patient tolerated session with c/o pain in L hip area with ther ex and weight bearing. He was able to demonstrate a progression in transfers, requiring less assistance. He would benefit from continued gait and transfer training as well as strengthening for improved mobility. PLAN: Continue with PT's POC TREATMENT CODE/TIME: 30 minutes; TA/TP
--- NOTE | 2018-05-02 14:53 | PGE_ITS ---
Date of Service Date of service: 05/02/18 Time of Service: 14:50 Assessment and Plan (1) Fracture, intertrochanteric, left femur: Current visit: Yes Status: Acute S/p intramedullary nail fixation of a left femur fracture on 04/29, now post-op day #3. Pain continues to improve and he is working with PT - however, apparently has 15 steps to negotiate at home - need to ensure that he is able to ascend stairs by PT quinn prior to discharge. (2) DVT prophylaxis: Current visit: Yes Status: Acute SC Lovenox. Subjective Patient reports: no new complaints, feels better, tolerating a regular diet, voiding w/o difficulty and flatus; denies diarrhea, nausea, vomiting, shortness of breath and fever Interval history since last seen: 62-year-old man with a prior history of CAD with chronic severe angina, on home hospice, admitted on 04/28 from [facility] Emergency Department with a traumatic left hip fracture. Mr. Galindo has a history of CAD, ICMP with an EF of 40%, and COPD. He suffered a mechanical fall with resultant left-sided hip pain. Imaging in the ED showed a significantly displaced intertrochanteric fracture of the left femur, s/p surgical repair on 04/29. Today the patient reports pain only when bearing weight on the joint. He continues to request discharge, as he does not want to stay in the hospital for too long. No other events reported. Exam Narrative Exam Narrative: General: Patient appears comfortable, AAOX3, NAD. Psych: Normal mood and affect. Objective Objective Clinical Data: Vital Signs Temperature 36.5 C 05/02/18 07:40 Temperature Source Tympanic 05/02/18 07:40 Pulse 85 05/02/18 09:13 Pulse Rhythm Irregular 05/02/18 09:19 Respiratory Rate 18 05/02/18 07:40 Respiratory Effort Non-Labored 05/02/18 09:19 Respiratory Depth Normal 05/02/18 09:19 Respiratory Pattern Normal 05/02/18 09:19 Blood Pressure 131/89 05/02/18 07:40 Blood Pressure Position Supine 04/28/18 15:56 Pulse Oximetry 94 L 05/02/18 07:40 Respiratory End-tidal CO2 27 04/29/18 14:40 Oxygen Delivery Method Room Air 05/02/18 07:40 Oxygen Flow Rate 0 05/02/18 07:40 Pain Level 3 05/02/18 14:31 Comment 05/01/18 14:29 Intake & Output 05/01/18 05/02/18 05/02/18 23:59 11:59 23:59 Intake Total 270 / 270 720 / 720 Output Total 600 / 600 200 / 200 Balance -330 / -330 -200 / -200 720 / 720 Weight 87.6 kg Intake: IV 30 / 30 Oral 240 / 240 720 / 720 Output: Urine 600 / 600 200 / 200 Other: Urine Color Light Susannah Light Susannah Urine Appearance Clear Clear Voiding Methods Urinal Urinal Laboratory Results WBC 9.03 k/cumm (4.4-10.8) 04/29/18 07:05 RBC 4.25 m/cumm (4.50-6.00) L 04/29/18 07:05 Hgb 15.5 g/dL (13.5-17.5) 04/29/18 07:05 Hct 45.1 % (40.0-50.0) 04/29/18 07:05 MCV 106.1 fL (80-95) H 04/29/18 07:05 MCH 36.5 pg (27.0-33.0) H 04/29/18 07:05 MCHC 34.4 g/dL (32.0-36.0) 04/29/18 07:05 RDW 15.5 % (11.8-14.1) H 04/29/18 07:05 Plt Count 212 x1000/uL (130-400) 04/29/18 07:05 MPV 9.9 fL (8.0-11.0) 04/29/18 07:05 Immature Gran % 0.4 04/28/18 16:46 Neutrophils % 79.2 04/28/18 16:46 Lymphocytes % 10.6 04/28/18 16:46 Monocytes % 5.4 04/28/18 16:46 Eosinophils % 4.0 04/28/18 16:46 Basophils % 0.4 04/28/18 16:46 Absolute Neutrophils 9.31 k/cumm (1.2-6.7) H 04/28/18 16:46 Absolute Lymphocytes 1.25 k/cumm (1.2-3.4) 04/28/18 16:46 Absolute Monocytes 0.63 k/cumm (0.11-0.7) 04/28/18 16:46 Absolute Eosinophils 0.47 k/cumm (0.0-0.7) 04/28/18 16:46 Absolute Basophils 0.05 k/cumm (0.0-0.2) 04/28/18 16:46 Differential Comment Rbc morph reviewed 04/28/18 16:46 RBC Morphology See below 04/28/18 16:46 Macrocytosis 3+ 04/28/18 16:46 PT 10.1 sec (9.3-10.8) 04/28/18 16:46 INR 1.0 (1.0-3.5) 04/28/18 16:46 APTT 24.2 sec (21.0-31.4) 04/28/18 16:46 Sodium 136 mmol/L (136-145) 04/28/18 16:46 Potassium 4.1 mmol/L (3.5-5.1) 04/28/18 16:46 Chloride 100 mmol/L (98-107) 04/28/18 16:46 Carbon Dioxide 24.2 mmol/L (21.0-32.0) 04/28/18 16:46 Anion Gap 11.8 mmol/L (3-11) H 04/28/18 16:46 BUN 10 mg/dL (7-18) 04/28/18 16:46 Creatinine 1.24 mg/dL (0.70-1.30) 04/28/18 16:46 Estimated GFR/1.73 m2 59.27 (mL/min/1.73m2) 04/28/18 16:46 Glucose 92 mg/dL (70-100) 04/28/18 16:46 Calcium 9.0 mg/dL (8.5-10.1) 04/28/18 16:46 Total Bilirubin 0.7 mg/dL (0.2-1.0) 04/28/18 16:46 AST 25 U/L (15-37) 04/28/18 16:46 ALT 32 U/L (12-78) 04/28/18 16:46 Alkaline Phosphatase 94 U/L (46-116) 04/28/18 16:46 Troponin I 0.06 ng/mL (0.00-0.06) 04/28/18 16:46 Total Protein 7.1 g/dL (6.4-8.2) 04/28/18 16:46 Albumin 3.7 g/dL (3.4-5.0) 04/28/18 16:46
[2018-05-02] MEDS: Enoxaparin 40 MG/0.4 ML SYR SC (15:32)
[2018-05-02 16:08] VITALS: BP 121/71; PULSE 69; RESP 18; TEMP 36.4; O2SAT 94
[2018-05-02 16:49] LABS: Platelet Count 199 x1000/uL (130-400)
[2018-05-02 18:01] VITALS: O2SAT 95
[2018-05-02] MEDS: LORazepam 1 MG TAB PO (18:29)
[2018-05-02] MEDS: Normal Saline Flush 10 ML SYR IVP (19:32)
[2018-05-02] MEDS: Budesonide/Formoterol 160/4.5 6 GM 60 PUFF INH IH (19:32)
[2018-05-03 00:27] VITALS: BP 133/91; PULSE 91; RESP 18; TEMP 36.7; O2SAT 95
[2018-05-03] MEDS: Acetaminophen 325 MG TAB PO ×4 (00:45→23:15)
[2018-05-03] MEDS: LORazepam 1 MG TAB PO ×4 (02:15→23:15)
[2018-05-03] MEDS: HYDROmorphone 2 MG TAB PO ×3 (03:18→18:08)
[2018-05-03] MEDS: Losartan 50 MG TAB PO (05:05)
[2018-05-03 05:28] VITALS: BP 154/98; PULSE 93
[2018-05-03 08:19] VITALS: PULSE 91
[2018-05-03] MEDS: Clopidogrel 75 MG TAB PO (08:19)
[2018-05-03] MEDS: Venlafaxine 50 MG TAB 100 MG PO ×2 (08:19→19:40)
[2018-05-03] MEDS: Atorvastatin 40 MG TAB 80 MG PO (08:19)
[2018-05-03] MEDS: Digoxin 0.125 MG TAB PO (08:19)
[2018-05-03] MEDS: Isosorbide Mononitrate 30 MG TABCR 90 MG PO ×2 (08:19→19:40)
[2018-05-03] MEDS: Omeprazole 20 MG CAPCR 40 MG PO (08:19)
[2018-05-03] MEDS: Metoprolol CR 25 MG TABCR PO ×3 (08:20→19:40)
[2018-05-03] MEDS: Docusate Sodium 100 MG CAP PO ×2 (08:20→14:31)
[2018-05-03] MEDS: Furosemide 40 MG TAB PO ×2 (08:20→15:33)
[2018-05-03 08:37] VITALS: BP 129/89; PULSE 104; RESP 16; TEMP 36.7; O2SAT 92
[2018-05-03 10:45] LABS: Bilirubin Negative (Negative); Blood Trace-intact (Negative); Clarity Clear; Glucose Negative (Negative); Ketones Negative (Negative); Leukocyte Esterase Negative (Negative); Nitrite Negative (Negative); Specific Gravity 1.015 (1.005-1.025); pH 7.5 (5-8)
[2018-05-03 10:53] LABS: Epithelial Cells Negative HPF (Negative); RBC 0-2 (0-2); WBC Negative HPF (0-5)
[2018-05-03 10:54] LABS: Bacteria Negative HPF (Negative); C & S Indicated? No; Casts Negative LPF (Negative); Crystals Negative HPF (Negative); Mucus Negative (Negative)
--- NOTE | 2018-05-03 12:39 | PT.INTREAT ---
Date of service: 05/03/18 Time of Service: 12:39 PT Notes Inpatient Physical Therapy Treatment Note Date: 05/03/18 PRECAUTIONS: Fall, WBAT on L SUBJECTIVE: Harvey is agreeable to participating in PT. He states that he is feeling better today now that they have straightened out his medication. Patient reports that he will not need to use the stairs to get to his bedroom as his friend, Danuta, is moving his bedroom to the first floor. Patient also reports that he has a ramp to enter his home. OBJECTIVE: PAIN: Patient complained of left lower extremity pain with weight bearing and ther ex BED MOBILITY/TRANSFERS Supine-sit: S Sit-stand: CGA Stand-sit: SBA GAIT Assistive Device: FWW Weight bearing: WBAT L Assist: CGA Distance: 30' +20' THEREX: Patient completed a lower extremity strengthening and stabilization program, as per flow sheet. Patient continues to require assist with SLR, hip flexion, and hip abduction exercises. ASSESSMENT: Patient was able to tolerate a slight progression in his gait training with FWW support. Patient continues to complain of left hip pain with weight bearing and ther ex. Patient would benefit from continued gait and transfer training as well as strengthening for improved mobility. PLAN: Continue with PT's POC TREATMENT CODE/TIME: 30 minutes; TA/TP
--- NOTE | 2018-05-03 13:01 | W.PM.PROGNOT ---
Date of Service Date of service: 05/03/18 Time of Service: 13:02 Assessment and Plan (1) Fracture, intertrochanteric, left femur: Current visit: Yes Status: Acute S/p intramedullary nail fixation of a left femur fracture on 04/29, now post-op day #4. Pain continues to improve and he is working with PT - however, apparently has 15 steps to negotiate at home to get to his bedroom - currently working to ensure safety at home, and access to single floor for return. Continuing to work with PT. Pain control improved. (2) DVT prophylaxis: Current visit: Yes Status: Acute SC Lovenox. Subjective Interval history since last seen: 62-year-old man with a prior history of CAD with chronic severe angina, on home hospice, admitted on 04/28 from [facility] Emergency Department with a traumatic left hip fracture. Mr. Galindo has a history of CAD, ICMP with an EF of 40%, and COPD. He suffered a mechanical fall with resultant left-sided hip pain. Imaging in the ED showed a significantly displaced intertrochanteric fracture of the left femur, s/p surgical repair on 04/29. He reports pain only when bearing weight on the joint. He does however state significant difficulty when working with PT today. He continues to request discharge, but is willing to wait for safety at home. No other events reported. Exam Narrative Exam Narrative: General: Patient appears comfortable, AAOX3, NAD. Psych: Normal mood and affect. Objective Objective Clinical Data: Abnormal lab results 05/03/18 Range/Units 10:25 Urine Blood Trace-intact H (Negative) Urine Urobilinogen 1.0 H (Up TO 0.2) EU/dL Vital Signs Temperature 36.7 C 05/03/18 08:37 Temperature Source Tympanic 05/03/18 08:37 Pulse 104 H 05/03/18 08:37 Pulse Rhythm Irregular 05/03/18 08:29 Respiratory Rate 16 05/03/18 08:37 Respiratory Effort 05/03/18 08:29 Respiratory Depth Normal 05/03/18 08:29 Respiratory Pattern Normal 05/03/18 08:29 Blood Pressure 129/89 05/03/18 08:37 Blood Pressure Position Supine 04/28/18 15:56 Pulse Oximetry 92 L 05/03/18 08:37 Respiratory End-tidal CO2 27 04/29/18 14:40 Oxygen Delivery Method Room Air 05/03/18 08:37 Oxygen Flow Rate 0 05/03/18 08:37 Pain Level 6 05/03/18 10:11 Comment 05/01/18 14:29 Intake & Output 05/02/18 05/03/18 05/03/18 23:59 11:59 23:59 Intake Total 960 / 960 250 / 250 Output Total 1000 / 1000 400 / 400 Balance -40 / -40 -150 / -150 Intake: IV Oral 960 / 960 240 / 240 Output: Urine 1000 / 1000 400 / 400 Other: Urine Color Yellow Yellow Urine Appearance Clear Comment in toilet mixed with stool Stool Size Moderate Stool Characteristics Formed Hard Voiding Methods Urinal Toilet Diaper Laboratory Results WBC 9.03 k/cumm (4.4-10.8) 04/29/18 07:05 RBC 4.25 m/cumm (4.50-6.00) L 04/29/18 07:05 Hgb 15.5 g/dL (13.5-17.5) 04/29/18 07:05 Hct 45.1 % (40.0-50.0) 04/29/18 07:05 MCV 106.1 fL (80-95) H 04/29/18 07:05 MCH 36.5 pg (27.0-33.0) H 04/29/18 07:05 MCHC 34.4 g/dL (32.0-36.0) 04/29/18 07:05 RDW 15.5 % (11.8-14.1) H 04/29/18 07:05 Plt Count 199 x1000/uL (130-400) 05/02/18 16:33 MPV 9.9 fL (8.0-11.0) 04/29/18 07:05 Immature Gran % 0.4 04/28/18 16:46 Neutrophils % 79.2 04/28/18 16:46 Lymphocytes % 10.6 04/28/18 16:46 Monocytes % 5.4 04/28/18 16:46 Eosinophils % 4.0 04/28/18 16:46 Basophils % 0.4 04/28/18 16:46 Absolute Neutrophils 9.31 k/cumm (1.2-6.7) H 04/28/18 16:46 Absolute Lymphocytes 1.25 k/cumm (1.2-3.4) 04/28/18 16:46 Absolute Monocytes 0.63 k/cumm (0.11-0.7) 04/28/18 16:46 Absolute Eosinophils 0.47 k/cumm (0.0-0.7) 04/28/18 16:46 Absolute Basophils 0.05 k/cumm (0.0-0.2) 04/28/18 16:46 Differential Comment Rbc morph reviewed 04/28/18 16:46 RBC Morphology See below 04/28/18 16:46 Macrocytosis 3+ 04/28/18 16:46 PT 10.1 sec (9.3-10.8) 04/28/18 16:46 INR 1.0 (1.0-3.5) 04/28/18 16:46 APTT 24.2 sec (21.0-31.4) 04/28/18 16:46 Sodium 136 mmol/L (136-145) 04/28/18 16:46 Potassium 4.1 mmol/L (3.5-5.1) 04/28/18 16:46 Chloride 100 mmol/L (98-107) 04/28/18 16:46 Carbon Dioxide 24.2 mmol/L (21.0-32.0) 04/28/18 16:46 Anion Gap 11.8 mmol/L (3-11) H 04/28/18 16:46 BUN 10 mg/dL (7-18) 04/28/18 16:46 Creatinine 1.24 mg/dL (0.70-1.30) 04/28/18 16:46 Estimated GFR/1.73 m2 59.27 (mL/min/1.73m2) 04/28/18 16:46 Glucose 92 mg/dL (70-100) 04/28/18 16:46 Calcium 9.0 mg/dL (8.5-10.1) 04/28/18 16:46 Total Bilirubin 0.7 mg/dL (0.2-1.0) 04/28/18 16:46 AST 25 U/L (15-37) 04/28/18 16:46 ALT 32 U/L (12-78) 04/28/18 16:46 Alkaline Phosphatase 94 U/L (46-116) 04/28/18 16:46 Troponin I 0.06 ng/mL (0.00-0.06) 04/28/18 16:46 Total Protein 7.1 g/dL (6.4-8.2) 04/28/18 16:46 Albumin 3.7 g/dL (3.4-5.0) 04/28/18 16:46 Urine Color Yellow (Yellow) 05/03/18 10:25 Urine Clarity Clear 05/03/18 10:25 Urine pH 7.5 (5-8) 05/03/18 10:25 Ur Specific [place] 1.015 (1.005-1.025) 05/03/18 10:25 Urine Protein Negative mg/dL (Negative) 05/03/18 10:25 Urine Ketones Negative mg/dL (Negative) 05/03/18 10:25 Urine Blood Trace-intact (Negative) H 05/03/18 10:25 Urine Nitrite Negative (Negative) 05/03/18 10:25 Urine Bilirubin Negative (Negative) 05/03/18 10:25 Urine Urobilinogen 1.0 EU/dL (Up TO 0.2) H 05/03/18 10:25 Ur Leukocyte Esterase Negative (Negative) 05/03/18 10:25 Urine RBC 0-2 (0-2) 05/03/18 10:25 Urine WBC Negative HPF (0-5) 05/03/18 10:25 Ur Epithelial Cells Negative HPF (Negative) 05/03/18 10:25 Urine Crystals Negative HPF (Negative) 05/03/18 10:25 Urine Bacteria Negative HPF (Negative) 05/03/18 10:25 Urine Casts Negative LPF (Negative) 05/03/18 10:25 Urine Mucus Negative (Negative) 05/03/18 10:25 Ur Culture Indicated? No 05/03/18 10:25 Urine Glucose Negative mg/dL (Negative) 05/03/18 10:25
--- NOTE | 2018-05-03 13:59 | PDOC.CMPRO ---
- If Service Date Differs Date of service: 05/03/18 Time of Service: 13:59 Care Management Progress Note S/O:CM spoke with Christofer's family and he will plan to return home in the next 24-48 hours and return to Hospice services. Danuta will move his room down stairs his sister Charisse is asking if Hospice could supply the hospital bed. CM will contact hospice nurse on Friday to request a bed through [facility]. Christofer remains confused at times he was restarted on his home pain medications. He will have care at home by family and others in the home. A:62 y/o male admitted 04/28/18 for Hip fracture P: Christofer will return home on Hospice whom is already following in the community once discharged. Gale sister Charisse to transport once medically cleared. CM to request Hospice to order a hospital bed for the first floor.
[2018-05-03] MEDS: Enoxaparin 40 MG/0.4 ML SYR SC (15:33)
[2018-05-03 16:29] VITALS: BP 146/89; PULSE 56; RESP 18; TEMP 36.5; O2SAT 95
[2018-05-03] MEDS: Budesonide/Formoterol 160/4.5 6 GM 60 PUFF INH IH (19:40)
[2018-05-03 23:16] VITALS: BP 146/83; PULSE 74; RESP 16; TEMP 36.9; O2SAT 95
[2018-05-04] VITALS (7 sets, daily range): BP systolic 143–150; BP diastolic 78–104; PULSE 72–100; RESP 16–22; TEMP 35.1–36.9; O2SAT 92–96
[2018-05-04] MEDS: HYDROmorphone 2 MG TAB PO ×2 (02:41→08:59)
[2018-05-04] MEDS: Acetaminophen 325 MG TAB PO ×4 (03:48→23:07)
[2018-05-04] MEDS: Losartan 50 MG TAB PO (05:04)
[2018-05-04] MEDS: LORazepam 1 MG TAB PO ×4 (05:04→20:58)
[2018-05-04] MEDS: Atorvastatin 40 MG TAB 80 MG PO (07:53)
[2018-05-04] MEDS: Digoxin 0.125 MG TAB PO (07:53)
[2018-05-04] MEDS: Clopidogrel 75 MG TAB PO (07:53)
[2018-05-04] MEDS: Venlafaxine 50 MG TAB 100 MG PO ×2 (07:53→19:18)
[2018-05-04] MEDS: Metoprolol CR 25 MG TABCR PO ×3 (07:53→19:18)
[2018-05-04] MEDS: Omeprazole 20 MG CAPCR 40 MG PO (07:54)
[2018-05-04] MEDS: Isosorbide Mononitrate 30 MG TABCR 90 MG PO ×2 (07:54→19:17)
[2018-05-04] MEDS: Furosemide 40 MG TAB PO ×2 (07:54→16:16)
[2018-05-04] MEDS: Docusate Sodium 100 MG CAP PO (07:55)
[2018-05-04] MEDS: Umeclidinium 7 CAP INHALER 1 CAP IH (09:20)
[2018-05-04] MEDS: Budesonide/Formoterol 160/4.5 6 GM 60 PUFF INH IH ×2 (09:21→19:17)
--- NOTE | 2018-05-04 11:21 | PT.INTREAT ---
Date of service: 05/04/18 Time of Service: 10:00 PT Notes Inpatient Physical Therapy Treatment Note Date: 05/04/18 PRECAUTIONS: Fall, WBAT L SUBJECTIVE: José Miguel is agreeable to PT following some encouragement. OBJECTIVE: Patient demonstrating increased confusion this morning. PAIN: No complaints of pain BED MOBILITY/TRANSFERS Supine-sit: I Sit-supine: I Sit-stand: SBA Stand-sit: SBA GAIT Assistive Device: FWW Weight bearing: WBAT L Assist: SBA Distance: 30' x2 ASSESSMENT: Patient appeared limited due to confusion. Patient was able to tolerate a slight progression in his gait distance with FWW support. Patient would benefit from continued strengthening as well as transfer and gait training for improved mobility. PLAN: Continue with PT's POC TREATMENT CODE/TIME: 10 minutes; ARLENE
--- NOTE | 2018-05-04 11:58 | W.PM.PROGNOT ---
Date of Service Date of service: 05/04/18 Time of Service: 11:58 Assessment and Plan (1) Fracture, intertrochanteric, left femur: Current visit: Yes Status: Acute Christofer is s/p IMN of a left intertrochanteric hip fracture. He seems to be largely more confused and impulsive than previously although he is aware that a hosptal bed is being delivered. He wants to go home and it seems like he is making progress to get there. He has been rather independent with transfers and is making progress. He may return to all home medications. He may discharge to home once cleared by PT. He should follow-up in 4 weeks. Lovenox may be discontinued on discharge with resuming ASA 81mg daily and Plavix. Subjective Interval history since last seen: Christofer is more confused today than he has been. He wants to know if he can have an overnight pass to leave and come back tomorrow. He reports he has been able to ambulate with physical therapy and is anxious to get home. They are working on a hospital bed at his house and he wants to get back as soon as possible. He denies any new trauma. He does have pain with getting out of bed but has been able to ambulate with minimal discomfort. No numbness or tingling. Exam Narrative Exam Narrative: Dressings c/d/i. Thigh is swollen but soft. He tolerates some IR/ER/Flexion with minimal pain of the left hip. Objective Objective Clinical Data: Vital Signs Temperature 36.6 C 05/04/18 07:40 Temperature Source Skin 05/04/18 07:40 Pulse 81 05/04/18 07:53 Pulse Rhythm Irregular 05/04/18 08:00 Respiratory Rate 16 05/04/18 07:40 Respiratory Effort Non-Labored 05/04/18 08:00 Respiratory Depth Normal 05/04/18 08:00 Respiratory Pattern Normal 05/04/18 08:00 Blood Pressure 145/83 H 05/04/18 07:40 Blood Pressure Position Supine 04/28/18 15:56 Pulse Oximetry 92 L 05/04/18 07:40 Respiratory End-tidal CO2 27 04/29/18 14:40 Oxygen Delivery Method Room Air 05/04/18 07:40 Oxygen Flow Rate 0 05/04/18 07:40 Pain Level 7 05/04/18 08:59 Comment 05/04/18 07:40 Intake & Output 05/03/18 05/03/18 05/04/18 11:59 23:59 11:59 Intake Total 490 / 490 490 / 490 400 / 400 Output Total 400 / 400 700 / 700 1050 / 1050 Balance 90 / 90 -210 / -210 -650 / -650 Weight 87.8 kg Intake: IV Oral 480 / 480 490 / 490 400 / 400 Output: Urine 400 / 400 700 / 700 1050 / 1050 Other: Urine Color Yellow Straw Yellow Straw Urine Appearance Clear Clear Urine Odor None Comment in toilet mixed with stool Stool Size Moderate Stool Characteristics Formed Hard Voiding Methods Toilet Urinal Urinal Diaper Laboratory Results WBC 9.03 k/cumm (4.4-10.8) 04/29/18 07:05 RBC 4.25 m/cumm (4.50-6.00) L 04/29/18 07:05 Hgb 15.5 g/dL (13.5-17.5) 04/29/18 07:05 Hct 45.1 % (40.0-50.0) 04/29/18 07:05 MCV 106.1 fL (80-95) H 04/29/18 07:05 MCH 36.5 pg (27.0-33.0) H 04/29/18 07:05 MCHC 34.4 g/dL (32.0-36.0) 04/29/18 07:05 RDW 15.5 % (11.8-14.1) H 04/29/18 07:05 Plt Count 199 x1000/uL (130-400) 05/02/18 16:33 MPV 9.9 fL (8.0-11.0) 04/29/18 07:05 Immature Gran % 0.4 04/28/18 16:46 Neutrophils % 79.2 04/28/18 16:46 Lymphocytes % 10.6 04/28/18 16:46 Monocytes % 5.4 04/28/18 16:46 Eosinophils % 4.0 04/28/18 16:46 Basophils % 0.4 04/28/18 16:46 Absolute Neutrophils 9.31 k/cumm (1.2-6.7) H 04/28/18 16:46 Absolute Lymphocytes 1.25 k/cumm (1.2-3.4) 04/28/18 16:46 Absolute Monocytes 0.63 k/cumm (0.11-0.7) 04/28/18 16:46 Absolute Eosinophils 0.47 k/cumm (0.0-0.7) 04/28/18 16:46 Absolute Basophils 0.05 k/cumm (0.0-0.2) 04/28/18 16:46 Differential Comment Rbc morph reviewed 04/28/18 16:46 RBC Morphology See below 04/28/18 16:46 Macrocytosis 3+ 04/28/18 16:46 PT 10.1 sec (9.3-10.8) 04/28/18 16:46 INR 1.0 (1.0-3.5) 04/28/18 16:46 APTT 24.2 sec (21.0-31.4) 04/28/18 16:46 Sodium 136 mmol/L (136-145) 04/28/18 16:46 Potassium 4.1 mmol/L (3.5-5.1) 04/28/18 16:46 Chloride 100 mmol/L (98-107) 04/28/18 16:46 Carbon Dioxide 24.2 mmol/L (21.0-32.0) 04/28/18 16:46 Anion Gap 11.8 mmol/L (3-11) H 04/28/18 16:46 BUN 10 mg/dL (7-18) 04/28/18 16:46 Creatinine 1.24 mg/dL (0.70-1.30) 04/28/18 16:46 Estimated GFR/1.73 m2 59.27 (mL/min/1.73m2) 04/28/18 16:46 Glucose 92 mg/dL (70-100) 04/28/18 16:46 Calcium 9.0 mg/dL (8.5-10.1) 04/28/18 16:46 Total Bilirubin 0.7 mg/dL (0.2-1.0) 04/28/18 16:46 AST 25 U/L (15-37) 04/28/18 16:46 ALT 32 U/L (12-78) 04/28/18 16:46 Alkaline Phosphatase 94 U/L (46-116) 04/28/18 16:46 Troponin I 0.06 ng/mL (0.00-0.06) 04/28/18 16:46 Total Protein 7.1 g/dL (6.4-8.2) 04/28/18 16:46 Albumin 3.7 g/dL (3.4-5.0) 04/28/18 16:46 Urine Color Yellow (Yellow) 05/03/18 10:25 Urine Clarity Clear 05/03/18 10:25 Urine pH 7.5 (5-8) 05/03/18 10:25 Ur Specific [place] 1.015 (1.005-1.025) 05/03/18 10:25 Urine Protein Negative mg/dL (Negative) 05/03/18 10:25 Urine Ketones Negative mg/dL (Negative) 05/03/18 10:25 Urine Blood Trace-intact (Negative) H 05/03/18 10:25 Urine Nitrite Negative (Negative) 05/03/18 10:25 Urine Bilirubin Negative (Negative) 05/03/18 10:25 Urine Urobilinogen 1.0 EU/dL (Up TO 0.2) H 05/03/18 10:25 Ur Leukocyte Esterase Negative (Negative) 05/03/18 10:25 Urine RBC 0-2 (0-2) 05/03/18 10:25 Urine WBC Negative HPF (0-5) 05/03/18 10:25 Ur Epithelial Cells Negative HPF (Negative) 05/03/18 10:25 Urine Crystals Negative HPF (Negative) 05/03/18 10:25 Urine Bacteria Negative HPF (Negative) 05/03/18 10:25 Urine Casts Negative LPF (Negative) 05/03/18 10:25 Urine Mucus Negative (Negative) 05/03/18 10:25 Ur Culture Indicated? No 05/03/18 10:25 Urine Glucose Negative mg/dL (Negative) 05/03/18 10:25
--- NOTE | 2018-05-04 12:03 | PDOC.CMPRO ---
- If Service Date Differs Date of service: 05/04/18 Time of Service: 12:03 Care Management Progress Note S/O: Christofer was lying in bed when CM visited this morning. He is engaged in conversation and is talkative. Report from nursing is that Christofer has had increased confusion over the last several days. When CM asked Christofer about his Thanksgiving, Christofer reported that he had a heart attack that day and four other problems. He is unsure about where he is initially but then asserts after a few minutes that he is at the hospital in [facility]. CM left a voice mail for Kaylah at [facility] regarding family request for a hospital bed at home. CM spoke with Christofer's sister, Charisse, who reported that Christofer phoned the house 'property maintenance supervisor' at [facility] [employer], stating that he was going across the street to [facility] and that he needed her to bring him cigarettes and Twisted Tea. CM assured Charisse that Christofer is not transferring to [employer]. Charisse asked if Christofer could get a nicotine patch while in the hospital; aware of request. Charisse asked that she be phoned if staff have any updates or concerns regarding her brother. Due to concerns regarding acute confusion, d/c'ed Christofer's dilaudid. A:62 y/o male admitted 04/28/18 for Hip fracture P: Christofer will return home on Hospice when he is medically ready per MD. Christofer's sister Charisse will transport once medically cleared. CM will continue to offer support to patient, family, and care team regarding discharge planning and disposition.
--- NOTE | 2018-05-04 12:15 | CMPROGNOTE_ITS ---
- If Service Date Differs Date of service: 05/04/18 Time of Service: 12:03 Care Management Progress Note S/O: Christofer was lying in bed when CM visited this morning. He is engaged in conversation and is talkative. Report from nursing is that Christofer has had increased confusion over the last several days. When CM asked Christofer about his Thanksgiving, Christofer reported that he had a heart attack that day and four other problems. He is unsure about where he is initially but then asserts after a few minutes that he is at the hospital in [facility]. CM left a voice mail for Kaylah at [facility] regarding family request for a hospital bed at home. CM spoke with Christofer's sister, Charisse, who reported that Christofer phoned the house 'production shift supervisor' at [facility] [employer], stating that he was going across the street to [employer] and that he needed her to bring him cigarettes and Twisted Tea . CM assured Charisse that Christofer is not transferring to [employer]. Charisse asked if Christofer could get a nicotine patch while in the hospital; aware of request. Charisse asked that she be phoned if staff have any updates or concerns regarding her brother. Due to concerns regarding acute confusion, d/c'ed Christofer's dilaudid. A:62 y/o male admitted 04/28/18 for Hip fracture P: Christofer will return home on Hospice when he is medically ready per MD. Christofer's sister Charisse will transport once medically cleared. CM will continue to offer support to patient, family, and care team regarding discharge planning and disposition.
--- NOTE | 2018-05-04 13:05 | W.PM.PROGNOT ---
Documented by User: Virginie Hargrove NP 05/04/18 13:17 Date of Service Date of service: 05/04/18 Time of Service: 13:05 Assessment and Plan (1) Fracture, intertrochanteric, left femur: Current visit: Yes Status: Acute S/p intramedullary nail fixation of a left femur fracture on 04/29, now post-op day #5. Continues to experience some pain while ambulating. Dilaudid discontinued. Continue MS Contin and will add morphine MSIR. Once able will return home on Hospice. (2) DVT prophylaxis: Current visit: Yes Status: Acute SC Lovenox. Subjective Patient reports: no new complaints Interval history since last seen: 62 yo with hx CAD, CHF, COPD who is currently POD #5 s/p intramedullary nail fixation of left inter-trochanteric hip fx after sustaining a fall at home. Overall is doing well from an operative standpoint. Is still having some pain to the L hip especially with ambulation. Otherwise no complaints or concerns. Exam Narrative Exam Narrative: General: 62 yo male. Well developed and well nourished. No acute distress. A/Ox3. Pleasant and cooperative. HEENT: Normocephalic, Atraumatic. Conjunctiva clear, sclera non-icteric. PERRL. EOMI. Moist mucous membranes, oropharynx clear. Neck supple, no JVD, thyromegaly or lymphadenopathy. Cardiovascular: Irregular rate and rhythm, S1S2, no S3 or S4. No murmur, rub, gallop. Respiratory: Chest expansion symmetrical, respirations unlabored. Lungs clear to auscultation with scattered expiratory wheezes. Otherwise no adventitious breath sounds GI: Abdomen round, soft, non-tender to palpation. Normoactive bowel sounds in all 4 quadrants. No hepatosplenomegaly or prominent masses. : deferred Extremities: Lower extremities without deformity or edema. Dry dressing to L hip, no drainage, some ecchymosis. Neurological: non-focal. CN 2-12 grossly intact. Psychiatric: pleasant and cooperative. Speech clear and articulate. Mood and affect normal. Objective Objective Clinical Data: Vital Signs Temperature 36.6 C 05/04/18 07:40 Temperature Source Skin 05/04/18 07:40 Pulse 81 05/04/18 07:53 Pulse Rhythm Irregular 05/04/18 08:00 Respiratory Rate 16 05/04/18 07:40 Respiratory Effort Non-Labored 05/04/18 08:00 Respiratory Depth Normal 05/04/18 08:00 Respiratory Pattern Normal 05/04/18 08:00 Blood Pressure 145/83 H 05/04/18 07:40 Blood Pressure Position Supine 04/28/18 15:56 Pulse Oximetry 92 L 05/04/18 09:10 Respiratory End-tidal CO2 27 04/29/18 14:40 Oxygen Delivery Method Room Air 05/04/18 09:10 Oxygen Flow Rate 0 05/04/18 09:10 Pain Level 7 05/04/18 08:59 Comment 05/04/18 07:40 Intake & Output 05/03/18 05/04/18 05/04/18 23:59 11:59 23:59 Intake Total 490 / 490 400 / 400 Output Total 700 / 700 1050 / 1050 Balance -210 / -210 -650 / -650 Weight 87.8 kg Intake: Oral 490 / 490 400 / 400 Output: Urine 700 / 700 1050 / 1050 Other: Urine Color Straw Yellow Straw Urine Appearance Clear Clear Urine Odor None Stool Size Moderate Stool Characteristics Soft Formed Brown Voiding Methods Urinal Urinal Laboratory Results WBC 9.03 k/cumm (4.4-10.8) 04/29/18 07:05 RBC 4.25 m/cumm (4.50-6.00) L 04/29/18 07:05 Hgb 15.5 g/dL (13.5-17.5) 04/29/18 07:05 Hct 45.1 % (40.0-50.0) 04/29/18 07:05 MCV 106.1 fL (80-95) H 04/29/18 07:05 MCH 36.5 pg (27.0-33.0) H 04/29/18 07:05 MCHC 34.4 g/dL (32.0-36.0) 04/29/18 07:05 RDW 15.5 % (11.8-14.1) H 04/29/18 07:05 Plt Count 199 x1000/uL (130-400) 05/02/18 16:33 MPV 9.9 fL (8.0-11.0) 04/29/18 07:05 Immature Gran % 0.4 04/28/18 16:46 Neutrophils % 79.2 04/28/18 16:46 Lymphocytes % 10.6 04/28/18 16:46 Monocytes % 5.4 04/28/18 16:46 Eosinophils % 4.0 04/28/18 16:46 Basophils % 0.4 04/28/18 16:46 Absolute Neutrophils 9.31 k/cumm (1.2-6.7) H 04/28/18 16:46 Absolute Lymphocytes 1.25 k/cumm (1.2-3.4) 04/28/18 16:46 Absolute Monocytes 0.63 k/cumm (0.11-0.7) 04/28/18 16:46 Absolute Eosinophils 0.47 k/cumm (0.0-0.7) 04/28/18 16:46 Absolute Basophils 0.05 k/cumm (0.0-0.2) 04/28/18 16:46 Differential Comment Rbc morph reviewed 04/28/18 16:46 RBC Morphology See below 04/28/18 16:46 Macrocytosis 3+ 04/28/18 16:46 PT 10.1 sec (9.3-10.8) 04/28/18 16:46 INR 1.0 (1.0-3.5) 04/28/18 16:46 APTT 24.2 sec (21.0-31.4) 04/28/18 16:46 Sodium 136 mmol/L (136-145) 04/28/18 16:46 Potassium 4.1 mmol/L (3.5-5.1) 04/28/18 16:46 Chloride 100 mmol/L (98-107) 04/28/18 16:46 Carbon Dioxide 24.2 mmol/L (21.0-32.0) 04/28/18 16:46 Anion Gap 11.8 mmol/L (3-11) H 04/28/18 16:46 BUN 10 mg/dL (7-18) 04/28/18 16:46 Creatinine 1.24 mg/dL (0.70-1.30) 04/28/18 16:46 Estimated GFR/1.73 m2 59.27 (mL/min/1.73m2) 04/28/18 16:46 Glucose 92 mg/dL (70-100) 04/28/18 16:46 Calcium 9.0 mg/dL (8.5-10.1) 04/28/18 16:46 Total Bilirubin 0.7 mg/dL (0.2-1.0) 04/28/18 16:46 AST 25 U/L (15-37) 04/28/18 16:46 ALT 32 U/L (12-78) 04/28/18 16:46 Alkaline Phosphatase 94 U/L (46-116) 04/28/18 16:46 Troponin I 0.06 ng/mL (0.00-0.06) 04/28/18 16:46 Total Protein 7.1 g/dL (6.4-8.2) 04/28/18 16:46 Albumin 3.7 g/dL (3.4-5.0) 04/28/18 16:46 Urine Color Yellow (Yellow) 05/03/18 10:25 Urine Clarity Clear 05/03/18 10:25 Urine pH 7.5 (5-8) 05/03/18 10:25 Ur Specific [place] 1.015 (1.005-1.025) 05/03/18 10:25 Urine Protein Negative mg/dL (Negative) 05/03/18 10:25 Urine Ketones Negative mg/dL (Negative) 05/03/18 10:25 Urine Blood Trace-intact (Negative) H 05/03/18 10:25 Urine Nitrite Negative (Negative) 05/03/18 10:25 Urine Bilirubin Negative (Negative) 05/03/18 10:25 Urine Urobilinogen 1.0 EU/dL (Up TO 0.2) H 05/03/18 10:25 Ur Leukocyte Esterase Negative (Negative) 05/03/18 10:25 Urine RBC 0-2 (0-2) 05/03/18 10:25 Urine WBC Negative HPF (0-5) 05/03/18 10:25 Ur Epithelial Cells Negative HPF (Negative) 05/03/18 10:25 Urine Crystals Negative HPF (Negative) 05/03/18 10:25 Urine Bacteria Negative HPF (Negative) 05/03/18 10:25 Urine Casts Negative LPF (Negative) 05/03/18 10:25 Urine Mucus Negative (Negative) 05/03/18 10:25 Ur Culture Indicated? No 05/03/18 10:25 Urine Glucose Negative mg/dL (Negative) 05/03/18 10:25
[2018-05-04] MEDS: Normal Saline Flush 10 ML SYR IVP (13:41)
--- NOTE | 2018-05-04 14:19 | PT.INNT ---
Date of service: 05/04/18 Time of Service: 14:19 PT Notes 05/04/18 Refused PT x2 this afternoon. Patient states I'm not going to get up and walk this afternoon, please just leave me alone. Nsg notified. Will attempt to resume PT services tomorrow morning.
[2018-05-04] MEDS: Enoxaparin 40 MG/0.4 ML SYR SC (16:17)
--- NOTE | 2018-05-05 01:37 | NUR.NOTE ---
Nursing Note: Patient is confused and thinks that he is in his home. Patient attempted to get out of bed multiple times to get things from his home. Patient tries to get up about 5-15 minute intervals. He is argumentative and is increasingly harder to redirect. Patient frequently complains of pain in different areas of his body and gives inconsistent pain score. One on one sitter moved in to his room. Frequent safety checks to be performed. Will continue to monitor.
[2018-05-05] MEDS: Acetaminophen 325 MG TAB PO ×3 (03:54→13:03)
[2018-05-05] MEDS: Losartan 50 MG TAB PO (04:40)
[2018-05-05 07:20] VITALS: O2SAT 94
[2018-05-05 07:20] LABS: Platelet Count 280 x1000/uL (130-400)
[2018-05-05 07:40] VITALS: BP 129/72; PULSE 68; RESP 18; TEMP 36.9; O2SAT 94
[2018-05-05 08:19] VITALS: PULSE 68
[2018-05-05] MEDS: Venlafaxine 50 MG TAB 100 MG PO (08:19)
[2018-05-05] MEDS: Omeprazole 20 MG CAPCR 40 MG PO (08:19)
[2018-05-05] MEDS: Metoprolol CR 25 MG TABCR PO ×2 (08:19→14:24)
[2018-05-05] MEDS: Atorvastatin 40 MG TAB 80 MG PO (08:19)
[2018-05-05] MEDS: Digoxin 0.125 MG TAB PO (08:19)
[2018-05-05] MEDS: Isosorbide Mononitrate 30 MG TABCR 90 MG PO (08:19)
[2018-05-05] MEDS: Clopidogrel 75 MG TAB PO (08:20)
[2018-05-05] MEDS: Furosemide 40 MG TAB PO (08:20)
[2018-05-05] MEDS: Docusate Sodium 100 MG CAP PO (08:20)
[2018-05-05] MEDS: LORazepam 1 MG TAB PO ×2 (08:28→13:03)
[2018-05-05] MEDS: Umeclidinium 7 CAP INHALER 1 CAP IH (08:32)
[2018-05-05] MEDS: Budesonide/Formoterol 160/4.5 6 GM 60 PUFF INH IH (08:34)
--- NOTE | 2018-05-05 10:34 | PDOC.CMPRO ---
- If Service Date Differs Date of service: 05/05/18 Time of Service: 10:34 Care Management Progress Note S/O: Christofer was returning from a shower when CM visited this morning. He is engaged in conversation, is talkative, and seems to be 'clearer' than he was last evening. Christofer was confused, agitated, and impulsive last evening (per nursing and this CM). This morning he is calmer and reports that he is just waiting to hear from the MD about his plans. MD is concerned about Christofer's altered mental status and will continue to monitor. RADHA spoke with Kaylah at [facility] yesterday who confirmed hospital bed requested by family was to be delivered later that day. Christofer's sister Charisse asked that she be phoned if staff have any updates or concerns regarding her brother. A:62 y/o male admitted 04/28/18 for Hip fracture P: Christofer will return home on Hospice when he is medically ready per MD. Christofer's sister, Charisse, will transport once medically cleared. CM will continue to offer support to patient, family, and care team regarding discharge planning and disposition.
--- NOTE | 2018-05-05 10:39 | CMPROGNOTE_ITS ---
- If Service Date Differs Date of service: 05/05/18 Time of Service: 10:34 Care Management Progress Note S/O: Christofer was returning from a shower when CM visited this morning. He is engaged in conversation, is talkative, and seems to be 'clearer' than he was last evening. Christofer was confused, agitated, and impulsive last evening (per nursing and this CM). This morning he is calmer and reports that he is just waiting to hear from the MD about his plans. MD is concerned about Christofer's altered mental status and will continue to monitor. RADHA spoke with Kaylah at [facility] yesterday who confirmed hospital bed requested by family was to be delivered later that day. Christofer's sister Charisse asked that she be phoned if staff have any updates or concerns regarding her brother. A:62 y/o male admitted 04/28/18 for Hip fracture P: Christofer will return home on Hospice when he is medically ready per MD. Christofer's sister, Charisse, will transport once medically cleared. CM will continue to offer support to patient, family, and care team regarding discharge planning and disposition.
--- NOTE | 2018-05-05 11:32 | PT.INTREAT ---
Date of service: 05/05/18 Time of Service: 11:32 PT Notes Inpatient Physical Therapy Treatment Note Date: 05/05/18 PRECAUTIONS: Fall, WBAT On L SUBJECTIVE: José Miguel states that he is feeling better today. OBJECTIVE: PAIN: No c/o pain BED MOBILITY/TRANSFERS Sit-stand: S Stand-sit: S GAIT Assistive Device: FWW Weight bearing: WBAT On L Assist: SBA Distance: 60' + 20' Deviation: Seated rest x1 ASSESSMENT: Patient tolerated a progression in gait distance well, with some c/o increased fatigue and shakiness. He would benefit from continued gait and transfer training as well as strengthening for improved mobility. PLAN: Cotninue with PT's POC TREATMENT CODE/TIME: 10 minutes; TA
--- NOTE | 2018-05-05 11:35 | PTTR_ITS ---
Date of service: 05/05/18 Time of Service: 11:32 PT Notes Inpatient Physical Therapy Treatment Note Date: 05/05/18 PRECAUTIONS: Fall, WBAT On L SUBJECTIVE: José Miguel states that he is feeling better today. OBJECTIVE: PAIN: No c/o pain BED MOBILITY/TRANSFERS Sit-stand: S Stand-sit: S GAIT Assistive Device: FWW Weight bearing: WBAT On L Assist: SBA Distance: 60' + 20' Deviation: Seated rest x1 ASSESSMENT: Patient tolerated a progression in gait distance well, with some c/ o increased fatigue and shakiness. He would benefit from continued gait and transfer training as well as strengthening for improved mobility. PLAN: Cotninue with PT's POC TREATMENT CODE/TIME: 10 minutes; TA
--- NOTE | 2018-05-05 12:50 | DI.RAD_ITS ---
SYMPTOMS/DIAGNOSIS: NEW COUGH, ALTERED MENTAL STATUS PA AND LATERAL CHEST: Comparison is made with [id number]. The heart size is at the upper limits of normal. Sternal wires and coronary artery stents are noted. There is scarring greatest in the left upper lobe. No superimposed infiltrate, effusion or pulmonary edema is seen. IMPRESSION: No acute abnormality.
--- NOTE | 2018-05-05 14:11 | W.PM.DS.N ---
Date of service: 05/05/18 Time of Service: 14:13 DS: Diagnosis Discharge Diagnosis (1) Fracture, intertrochanteric, left femur: Status: Acute (2) Altered mental status: Status: Acute Discharge Plan Disposition Patient Disposition: OTHER Condition: Stable Discharge Details Reason For Visit: HIP FRACTURE Admit Date/Time: 04/28/18 16:51 Admit Provider: Liam Bucio Attending Provider: Liam Bucio Primary Care Provider: Devin Barron Hospital Course Hospital Course: CC: Hip Pain HPI: 62-year-old man on hospice for severe angina, end-stage CAD admitted from [facility] Emergency Department with a diagnosis of hip fracture. Mr. Galindo presented with severe left-sided hip pain after he tripped and fell at home. The patient reported that he was helping a friend set up his television, and while backing up he tripped and fell on his left side striking his hip directly with immediate onset of severe pain. He was unable to get up and called for emergency services. Work-up in the ED showed a significantly displaced left intertrochanteric hip fracture, and the patient underwent a surgical repair where he underwent a closed reduction and stabilization with an intramedullary nail. Following his procedure his pain was controlled and Physical Therapy worked with him. However, he also had onset of episodic confusion and altered mental status, which by the morning of discharge appears resolved. He is being discharged back with home hospice and utilizing home health for PT and OT services. (1) Hip fracture: Underwent palliative surgical repair, with good results. Working with PT/OT, which will be continued at home via Home Health Services. Continue pain regimen - see below. (2) Altered Mental Status Patient experiences confusion intermittently after his operation. While potentially undergoing post-op delirium, he was also maintained on PO and IV Dilaudid in addition to his home MSContin. Of note, the patient had also just recently increased his home pain regimen as well. His dilaudid was discontinued, and he was started on low dose MSIR on a prn basis. Although confused last night the patient is oriented X3 this morning. He states that regardless of any residual deficits he still would like to return home. Further work-up options were discussed and refused by patient, who is on home hospice. A urinalysis was check in the previously while patient was experiencing the altered mental status, and negative for infection. His CXR was repeated today and also negative for infiltrate, effusion, or vascular congestion. The patient was afebrile, normotensive, nontachycardic, with normal oxygenation on room air. Not dehydrated by exam. Discussed checking labs and brain imaging, but declined by patient. Altered mental status may have been related to dilaudid use - would recommend monitoring mental status at home by Home Health following discharge. (3) Coronary artery disease: Patient is on hospice related to severe CAD with chronic angina. Will return home with his chronic home regimen. (3) Congestive heart failure (CHF): Secondary to ischemic cardiomyopathy with ejection fraction slightly reduced to 40-45% on echocardiogram in June of this year. He does not appear to be fluid overloaded at time of discharge. We will continue his chronic medications without change. (4) COPD (chronic obstructive pulmonary disease): Appears quiescent. Continue chronic inhalers. Was maintained on NRT while hospitalized. (5) GERD (gastroesophageal reflux disease): Continue PPI. (6) Disposition DNR/DNI on hospice. Discharge today with need for Home PT/OT as above. Home Meds and New Rx's Prescriptions: New morphine [MS Contin] 30 mg Tablet Extended Release 30 mg PO Q12H Qty: 0 RF: 0 morphine 15 mg Tablet 15 mg PO Q4H PRN PRNQty: 30 RF: 0 Continue furosemide 40 MG tablet 40 mg PO BID RF: 0 omeprazole 20 MG capsule,delayed release(DR/EC) 40 mg PO DAILY RF: 0 PROVENTIL HFA 18 GM HFA.AER.AD 1 puff Inhalation Q4H PRN RF: 0 bisoprolol fumarate 5 MG tablet 5 mg PO DAILY Qty: 90 RF: 3 fluticasone-salmeterol [Advair Diskus] 1 EACH blister with device 1 ea Inhalation BID RF: 0 isosorbide mononitrate 30 MG tablet extended release 24 hr 30 mg PO DAILY Qty: 30 RF: 0 atorvastatin [Lipitor] 80 MG tablet 80 mg PO DAILY RF: 0 umeclidinium [Incruse Ellipta] 1 PUFF blister with device 62.5 mcg Inhalation DAILY RF: 0 lorazepam 1 MG tablet 1 mg PO QID PRN PRNQty: 4 RF: 0 nitroglycerin 0.4 MG tablet, sublingual 0.4 mg Sublingual PRN PRNRF: 0 metoprolol succinate 25 MG tablet extended release 24 hr 25 mg PO DAILY AM RF: 0 losartan 50 MG tablet 50 mg PO DAILY AM RF: 0 diltiazem HCl [Cartia XT] 240 MG capsule,extended release 24hr 240 mg PO DAILY RF: 0 venlafaxine 100 MG tablet 100 mg PO BID RF: 0 isosorbide mononitrate 60 MG tablet extended release 24 hr 60 mg PO DAILY AM RF: 0 digoxin 125 MCG tablet 125 mcg PO DAILY RF: 0 clopidogrel 75 MG tablet 75 mg PO DAILY RF: 0 Discontinued hydromorphone [Dilaudid] 2 MG tablet 2 mg PO Q6H PRN PRN (Reason: Severe Pain) Qty: 5 RF: 0 morphine 30 mg Tablet 30 mg PO DAILY RF: 0 Discharge Instructions Stand Alone Forms: Nursing Discharge Form Referrals: Robbi Russ MD [ [facility] STAFF PHYSICIAN] - Activity:: As per PT/OT Equipment/Supplies:: No Equipment Needed Diet:: Heart Healthy Discharge Orders Discharge Orders: Discharge Order (Routine); Ordered 05/05/18 Ordered By: Atilio Lawson Exam Narrative Exam Narrative: General: Patient appears comfortable, AAOX3, NAD. Neck: Supple CV: Regular, nontachycardic, S1S2. 3/6 LLSB murmur Pulmonary: Clear to auscultation bilaterally, no crackles, wheezing, or rhonchi Abdomen: + Bowel Sounds, soft, nontender, nondistended Vascular: Mild b/l lower extremity edema Neurologic: CN II-XII grossly intact. No focal deficits. Psych: Normal mood and affect. DS: Data Vitals/I&O Vitals and I&O: Vital Signs Temperature 36.9 C 05/05/18 07:40 Temperature Source Tympanic 05/05/18 07:40 Pulse 68 05/05/18 08:19 Pulse Rhythm Regular 05/04/18 19:59 Respiratory Rate 18 05/05/18 07:40 Respiratory Effort 05/04/18 19:59 Respiratory Depth Normal 05/04/18 19:59 Respiratory Pattern Normal 05/04/18 19:59 Blood Pressure 129/72 05/05/18 07:40 Blood Pressure Position Supine 04/28/18 15:56 Pulse Oximetry 94 L 05/05/18 07:40 Respiratory End-tidal CO2 27 04/29/18 14:40 Oxygen Delivery Method Room Air 05/05/18 07:40 Oxygen Flow Rate 0 05/05/18 07:40 Pain Level 6 05/05/18 13:03 Comment 05/04/18 13:45 Intake & Output 05/04/18 05/05/18 05/05/18 23:59 11:59 23:59 Intake Total 640 / 640 480 / 480 Output Total 1100 / 1100 600 / 600 Balance -460 / -460 -120 / -120 Weight 87.8 kg Intake: Oral 640 / 640 480 / 480 Output: Urine 1100 / 1100 600 / 600 Other: Urine Color Yellow Yellow Urine Appearance Clear Clear Urine Odor None None Stool Size Moderate Stool Characteristics Soft Formed Brown Voiding Methods Urinal Urinal Completed studies during hospitalization [Text1]: Exam(s) a RAD:XR chest 2V PA & lateral SYMPTOMS/DIAGNOSIS: NEW COUGH, ALTERED MENTAL STATUS PA AND LATERAL CHEST: Comparison is made with [id number]. The heart size is at the upper limits of normal. Sternal wires and coronary artery stents are noted. There is scarring greatest in the left upper lobe. No superimposed infiltrate, effusion or pulmonary edema is seen. IMPRESSION: No acute abnormality. EXAM: XR Left Hip with Pelvis when Performed, 2 or 3 Views EXAM DATE/TIME: 04/28/2018 4:04 PM CLINICAL HISTORY: 62 years old, male; Injury or trauma; Fall; Initial encounter; Blunt trauma (contusions or hematomas); Left; Hip TECHNIQUE: XR Left hip with pelvis when performed, 2 or 3 views COMPARISON: No relevant prior studies available. FINDINGS: Bones/joints:. There are skeletal degenerative changes. There is an angulated moderately displaced left intertrochanteric hip fracture. Soft tissues: There is a left-sided vascular graft in the medial upper thigh. Vascular calcifications are seen. Surgical clips overlie the right medial thigh and pelvis. There is a moderate amount of stool in the rectum which can be seen with constipation. IMPRESSION: 1. Left intertrochanteric hip fracture. 2. Other findings as above. 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 Unable to work much due to heart disease. Has family close. Smokes 2-3 cigarettes a day. Has 1 alcoholic beverage every few days. No other drug use. Surgical History S/P hernia repair (Acute)
--- NOTE | 2018-05-05 14:11 | PDOC.CMDIS ---
- If Service Date Differs Date of service: 05/05/18 Time of Service: 14:11 LACE Index Scoring Tool - Questions: Length of Stay (in days): 7 - 13 Acuity (Admit via E.D.?): Yes Care Management Discharge Reason for Hospitalization: Hip Fracture Discharge Plan: Christofer will discharge home when medically ready per MD. Anticipate patient will discharge with home PT/OT and continue with his hospice services. Christofer will transport with [facility]. Patient/Family Education Needs: Discharge education, any limitations, and follow up plan of care. Ask Me Three discussion. Services Needed at Discharge: Home Health Care Services (Hospice, new PT/OT)
--- NOTE | 2018-05-05 14:19 | CMDISCH_ITS ---
- If Service Date Differs Date of service: 05/05/18 Time of Service: 14:11 LACE Index Scoring Tool - Questions: Length of Stay (in days): 7 - 13 Acuity (Admit via E.D.?): Yes Care Management Discharge Reason for Hospitalization: Hip Fracture Discharge Plan: Christofer will discharge home when medically ready per MD. Anticipate patient will discharge with home PT/OT and continue with his hospice services. Christofer will transport with [facility]. Patient/Family Education Needs: Discharge education, any limitations, and follow up plan of care. Ask Me Three discussion. Services Needed at Discharge: Home Health Care Services (Hospice, new PT/OT)
--- NOTE | 2018-05-05 14:33 | DSE_ITS ---
Date of service: 05/05/18 Time of Service: 14:13 DS: Diagnosis Discharge Diagnosis (1) Fracture, intertrochanteric, left femur: Status: Acute (2) Altered mental status: Status: Acute Discharge Plan Disposition Patient Disposition: OTHER Condition: Stable Discharge Details Reason For Visit: HIP FRACTURE Admit Date/Time: 04/28/18 16:51 Admit Provider: Liam Bucio Attending Provider: Liam Bucio Primary Care Provider: Devin Barron Hospital Course Hospital Course: CC: Hip Pain HPI: 62-year-old man on hospice for severe angina, end-stage CAD admitted from [facility] Emergency Department with a diagnosis of hip fracture. Mr. Galindo presented with severe left-sided hip pain after he tripped and fell at home. The patient reported that he was helping a friend set up his television, and while backing up he tripped and fell on his left side striking his hip directly with immediate onset of severe pain. He was unable to get up and called for emergency services. Work-up in the ED showed a significantly displaced left intertrochanteric hip fracture, and the patient underwent a surgical repair where he underwent a closed reduction and stabilization with an intramedullary nail. Following his procedure his pain was controlled and Physical Therapy worked with him. However , he also had onset of episodic confusion and altered mental status, which by the morning of discharge appears resolved. He is being discharged back with home hospice and utilizing home health for PT and OT services. (1) Hip fracture: Underwent palliative surgical repair, with good results. Working with PT/OT, which will be continued at home via Home Health Services. Continue pain regimen - see below. (2) Altered Mental Status Patient experiences confusion intermittently after his operation. While potentially undergoing post-op delirium, he was also maintained on PO and IV Dilaudid in addition to his home MSContin. Of note, the patient had also just recently increased his home pain regimen as well. His dilaudid was discontinued , and he was started on low dose MSIR on a prn basis. Although confused last night the patient is oriented X3 this morning. He states that regardless of any residual deficits he still would like to return home. Further work-up options were discussed and refused by patient, who is on home hospice. A urinalysis was check in the previously while patient was experiencing the altered mental status, and negative for infection. His CXR was repeated today and also negative for infiltrate, effusion, or vascular congestion. The patient was afebrile, normotensive, nontachycardic, with normal oxygenation on room air. Not dehydrated by exam. Discussed checking labs and brain imaging, but declined by patient. Altered mental status may have been related to dilaudid use - would recommend monitoring mental status at home by Home Health following discharge. (3) Coronary artery disease: Patient is on hospice related to severe CAD with chronic angina. Will return home with his chronic home regimen. (3) Congestive heart failure (CHF): Secondary to ischemic cardiomyopathy with ejection fraction slightly reduced to 40-45% on echocardiogram in June of this year. He does not appear to be fluid overloaded at time of discharge. We will continue his chronic medications without change. (4) COPD (chronic obstructive pulmonary disease): Appears quiescent. Continue chronic inhalers. Was maintained on NRT while hospitalized. (5) GERD (gastroesophageal reflux disease): Continue PPI. (6) Disposition DNR/DNI on hospice. Discharge today with need for Home PT/OT as above. Home Meds and New Rx's Prescriptions: New morphine [MS Contin] 30 mg Tablet Extended Release 30 mg PO Q12H Qty: 0 RF: 0 morphine 15 mg Tablet 15 mg PO Q4H PRN PRNQty: 30 RF: 0 Continue furosemide 40 MG tablet 40 mg PO BID RF: 0 omeprazole 20 MG capsule,delayed release(DR/EC) 40 mg PO DAILY RF: 0 PROVENTIL HFA 18 GM HFA.AER.AD 1 puff Inhalation Q4H PRN RF: 0 bisoprolol fumarate 5 MG tablet 5 mg PO DAILY Qty: 90 RF: 3 fluticasone-salmeterol [Advair Diskus] 1 EACH blister with device 1 ea Inhalation BID RF: 0 isosorbide mononitrate 30 MG tablet extended release 24 hr 30 mg PO DAILY Qty: 30 RF: 0 atorvastatin [Lipitor] 80 MG tablet 80 mg PO DAILY RF: 0 umeclidinium [Incruse Ellipta] 1 PUFF blister with device 62.5 mcg Inhalation DAILY RF: 0 lorazepam 1 MG tablet 1 mg PO QID PRN PRNQty: 4 RF: 0 nitroglycerin 0.4 MG tablet, sublingual 0.4 mg Sublingual PRN PRNRF: 0 metoprolol succinate 25 MG tablet extended release 24 hr 25 mg PO DAILY AM RF: 0 losartan 50 MG tablet 50 mg PO DAILY AM RF: 0 diltiazem HCl [Cartia XT] 240 MG capsule,extended release 24hr 240 mg PO DAILY RF: 0 venlafaxine 100 MG tablet 100 mg PO BID RF: 0 isosorbide mononitrate 60 MG tablet extended release 24 hr 60 mg PO DAILY AM RF: 0 digoxin 125 MCG tablet 125 mcg PO DAILY RF: 0 clopidogrel 75 MG tablet 75 mg PO DAILY RF: 0 Discontinued hydromorphone [Dilaudid] 2 MG tablet 2 mg PO Q6H PRN PRN (Reason: Severe Pain) Qty: 5 RF: 0 morphine 30 mg Tablet 30 mg PO DAILY RF: 0 Discharge Instructions Stand Alone Forms: Nursing Discharge Form Referrals: Robbi Russ MD [ [facility] STAFF PHYSICIAN] - Activity:: As per PT/OT Equipment/Supplies:: No Equipment Needed Diet:: Heart Healthy Discharge Orders Discharge Orders: Discharge Order (Routine); Ordered 05/05/18 Ordered By: Atilio Lawosn Exam Narrative Exam Narrative: General: Patient appears comfortable, AAOX3, NAD. Neck: Supple CV: Regular, nontachycardic, S1S2. 3/6 LLSB murmur Pulmonary: Clear to auscultation bilaterally, no crackles, wheezing, or rhonchi Abdomen: + Bowel Sounds, soft, nontender, nondistended Vascular: Mild b/l lower extremity edema Neurologic: CN II-XII grossly intact. No focal deficits. Psych: Normal mood and affect. DS: Data Vitals/I&O Vitals and I&O: Vital Signs Temperature 36.9 C 05/05/18 07:40 Temperature Source Tympanic 05/05/18 07:40 Pulse 68 05/05/18 08:19 Pulse Rhythm Regular 05/04/18 19:59 Respiratory Rate 18 05/05/18 07:40 Respiratory Effort 05/04/18 19:59 Respiratory Depth Normal 05/04/18 19:59 Respiratory Pattern Normal 05/04/18 19:59 Blood Pressure 129/72 05/05/18 07:40 Blood Pressure Position Supine 04/28/18 15:56 Pulse Oximetry 94 L 05/05/18 07:40 Respiratory End-tidal CO2 27 04/29/18 14:40 Oxygen Delivery Method Room Air 05/05/18 07:40 Oxygen Flow Rate 0 05/05/18 07:40 Pain Level 6 05/05/18 13:03 Comment 05/04/18 13:45 Intake & Output 05/04/18 05/05/18 05/05/18 23:59 11:59 23:59 Intake Total 640 / 640 480 / 480 Output Total 1100 / 1100 600 / 600 Balance -460 / -460 -120 / -120 Weight 87.8 kg Intake: Oral 640 / 640 480 / 480 Output: Urine 1100 / 1100 600 / 600 Other: Urine Color Yellow Yellow Urine Appearance Clear Clear Urine Odor None None Stool Size Moderate Stool Characteristics Soft Formed Brown Voiding Methods Urinal Urinal Completed studies during hospitalization [Text1]: Exam(s) a RAD:XR chest 2V PA & lateral SYMPTOMS/DIAGNOSIS: NEW COUGH, ALTERED MENTAL STATUS PA AND LATERAL CHEST: Comparison is made with [id number]. The heart size is at the upper limits of normal. Sternal wires and coronary artery stents are noted. There is scarring greatest in the left upper lobe. No superimposed infiltrate, effusion or pulmonary edema is seen. IMPRESSION: No acute abnormality. EXAM: XR Left Hip with Pelvis when Performed, 2 or 3 Views EXAM DATE/TIME: 04/28/2018 4:04 PM CLINICAL HISTORY: 62 years old, male; Injury or trauma; Fall; Initial encounter; Blunt trauma (contusions or hematomas); Left; Hip TECHNIQUE: XR Left hip with pelvis when performed, 2 or 3 views COMPARISON: No relevant prior studies available. FINDINGS: Bones/joints:. There are skeletal degenerative changes. There is an angulated moderately displaced left intertrochanteric hip fracture. Soft tissues: There is a left-sided vascular graft in the medial upper thigh. Vascular calcifications are seen. Surgical clips overlie the right medial thigh and pelvis. There is a moderate amount of stool in the rectum which can be seen with constipation. IMPRESSION: 1. Left intertrochanteric hip fracture. 2. Other findings as above. 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 Unable to work much due to heart disease. Has family close. Smokes 2-3 cigarettes a day. Has 1 alcoholic beverage every few days. No other drug use. Surgical History S/P hernia repair (Acute)
--- NOTE | 2018-05-05 15:03 | PT.INDS ---
Date of service: 05/05/18 Time of Service: 15:03 PT Notes Inpatient Physical Therapy Discharge Summary Date: 05/05/18 Dates of Service: 04/30/18-05/05/18 SUBJECTIVE: NT OBJECTIVE: 04/30/18-05/05/18 BED MOBILITY/TRANSFERS: Supine-sit : independent Sit-supine : independent Sit-stand : supervision Stand-sit : supervision GAIT: SBA with FWW 60ft, WBAT L LE BALANCE: Static sitting: normal Dynamic sitting: normal Static standing: fair Dynamic standing: fair ASSESSMENT: Pt was seen for 7 PT visits. Progressed from modA bed transfers to independent, from Katlyn standing trasnfers to supervision, from Katlyn gait with FWW 3ft to SBA gait with FWW 60ft, dynamic standing balance progressed from poor to fair. Pt is discharged to home today, discharge PT services. GOALS Goals X1 week 1. Supine-Sit: supervision 2. Sit-Supine: supervision 3. Sit-Stand supervision 4. Stand-Sit: supervision 5. Bed-Chair supervision with WW 6. Chair-Bed supervision with WW 7. Gait: supervision with WW x 30' Pt met goals # 1, 2, 3, 4 DISCHARGE RECOMMENDATIONS: Home with hospice care G Codes in the area mobility of walking and moving around; projected status GP [id number]. Discharge status (if discharging) GP [id number] ANGELLA. Valencia Stratton PT
--- NOTE | 2018-05-05 15:08 | INDS_ITS ---
Date of service: 05/05/18 Time of Service: 15:03 PT Notes Inpatient Physical Therapy Discharge Summary Date: 05/05/18 Dates of Service: 04/30/18-05/05/18 SUBJECTIVE: NT OBJECTIVE: 04/30/18-05/05/18 BED MOBILITY/TRANSFERS: Supine-sit : independent Sit-supine : independent Sit-stand : supervision Stand-sit : supervision GAIT: SBA with FWW 60ft, WBAT L LE BALANCE: Static sitting: normal Dynamic sitting: normal Static standing: fair Dynamic standing: fair ASSESSMENT: Pt was seen for 7 PT visits. Progressed from modA bed transfers to independent, from Katlyn standing trasnfers to supervision, from Katlyn gait with FWW 3ft to SBA gait with FWW 60ft, dynamic standing balance progressed from poor to fair. Pt is discharged to home today, discharge PT services. GOALS Goals X1 week 1. Supine-Sit: supervision 2. Sit-Supine: supervision 3. Sit-Stand supervision 4. Stand-Sit: supervision 5. Bed-Chair supervision with WW 6. Chair-Bed supervision with WW 7. Gait: supervision with WW x 30' Pt met goals # 1, 2, 3, 4 DISCHARGE RECOMMENDATIONS: Home with hospice care G Codes in the area mobility of walking and moving around; projected status GP [id number]. Discharge status (if discharging) GP [id number] ANGELLA. Valencia Stratton PT
== END 2018-05-05 15:20 | disposition other institution (70) | DRG 482 ==
LOC: ER 18:01 → MS 04-29 07:33
PROVIDERS: Student in an Organized Health Care Education/Training Program; Admitting Provider Family Medicine; Emergency Provider Emergency Medicine; PCP Specialist/Technologist Athletic Trainer; Visit Provider Internal Medicine
PROC: 0QS736Z Reposition Left Upper Femur with Intramedullary Internal Fixation Device, Percutaneous Approach (ICD-10-PCS; CPT 27245; principal; 2018-04-29 12:00)
DX: S72.142A Displaced intertrochanteric fracture of left femur, initial encounter for closed fracture (principal); R41.82 Altered mental status, unspecified; W01.0XXA Fall on same level from slipping, tripping and stumbling without subsequent striking against object, initial encounter; Y92.009 Unspecified place in unspecified non-institutional (private) residence as the place of occurrence of the external cause; R05 Cough; I25.10 Atherosclerotic heart disease of native coronary artery without angina pectoris; I25.5 Ischemic cardiomyopathy; I50.9 Heart failure, unspecified; J44.9 Chronic obstructive pulmonary disease, unspecified; K21.9 Gastro-esophageal reflux disease without esophagitis; F17.210 Nicotine dependence, cigarettes, uncomplicated; Z79.02 Long term (current) use of antithrombotics/antiplatelets; Z79.82 Long term (current) use of aspirin; K59.03 Drug induced constipation; T40.2X5A Adverse effect of other opioids, initial encounter; Z66 Do not resuscitate
CPT/HCPCS: 27245; 36415; 80053; 85027; 94640; 97110; 97163; 97530; 99222; 99232; 99239; 99253; 99285; J1650; NC; 71046; 73501; 73502; 81003; 81015; 84484; 85025; 85049; 85610; 85730; J0171; J0690; J2250; J2405; J3010

== ENCOUNTER → 2018-04-29 11:35 | Outpatient (BNVA) | payer MEDICARE, MEDICAID, SELFPAY | PROVIDERS: PCP Specialist/Technologist Athletic Trainer; Referring Provider Specialist/Technologist Athletic Trainer; Visit Provider Student in an Organized Health Care Education/Training Program | DX: R69 Illness, unspecified (principal) ==

== ENCOUNTER 2018-06-15 11:00 | Outpatient (CLI) | payer MEDICARE, SELFPAY ==
--- NOTE | 2018-06-15 10:49 | DI.RAD_ITS ---
SYMPTOMS/DIAGNOSIS: S/P ORIF LT HIP LEFT FEMUR: Four views. There is an intramedullary mary again seen transfixing the intertrochanteric fracture of the left femur. No change in alignment of the orthopedic hardware or fracture components is noted. The soft tissues are unremarkable. There is a vascular stent in place. IMPRESSION: Stable left femoral fracture.
== END 2018-06-15 11:20 ==
PROVIDERS: PCP Specialist/Technologist Athletic Trainer; Visit Provider Physician Assistant
DX: S72.142D Displaced intertrochanteric fracture of left femur, subsequent encounter for closed fracture with routine healing (principal); W01.0XXD Fall on same level from slipping, tripping and stumbling without subsequent striking against object, subsequent encounter
CPT/HCPCS: 73552

== ENCOUNTER 2018-08-15 10:35 | Inpatient (IN) | payer OTHER, SELFPAY ==
[2018-08-15 10:40] VITALS: BP 161/66; PULSE 96; RESP 20; TEMP 36.6; O2SAT 99
[2018-08-15] MEDS: fentaNYL 25 MCG PATCH TD (12:09)
--- NOTE | 2018-08-15 15:14 | HPE_ITS ---
Date of service: 08/15/18 Assessment and Plan (1) Alcoholism /alcohol abuse: Current visit: Yes Status: Acute Primary reason for Christofer's admission. Since he moved to [facility], has had ambulatory access to etoh at store across the street. Inebriated every day. Calling 911. Unable to be admitted to etoh rehab programs due to being on hospice for his heart disease. Plan is to have him on CIWA protocol with serax as treating medication. He reports he has not seized during withdrawals for more than 30 years. He was here for about a week in April when he broke his hip and did not have medically dangerous withdrawal at that time. Once he is off his etoh safely, will put him on deterring medication and send him back to [facility], which his sister, his CHINYERE, manages. (2) Altered mental status: Current visit: Yes Status: Acute Waxes and wanes. Due to etoh. Had 2 beers the am of admission. (3) Hospice care patient: Current visit: Yes Status: Chronic Has been on hospice for more than 6 months now. Still qualifies for his heart disease. However, hospice staff not trained to deal with daily intoxication in their dying patients. In order for hospice team to provide services safely, he needs to be sober, or nearly so. He is being admitted under his hospice benefit. It is thought that some of his cardiomyopathy is due to alcohol, though majority is due to ischemic heart disease. He continues to smoke. He has multiple CRF. He is not interested in any further cardiac evaluation or treatment. (4) Congestive heart failure (CHF): Current visit: Yes Status: Chronic Continue cardiac meds for comfort, primarily diuretics and nitrites, long and short acting. Qualifiers: Heart failure type: end stage Qualified Code(s): I50.84 - End stage heart failure (5) Coronary artery disease: Current visit: Yes Status: Chronic Has known blockages determined by cath at [facility] prior to his coming on hospice. Doesn't want any further intervention. (6) Angina concurrent with and due to arteriosclerosis of coronary artery: Current visit: Yes Status: Acute Daily occurence. Has nitro. ONLY NARCOTIC he can have at this time is fentanyl patch 25 mcg. Has misused them repeatedly on hospice service. History of Present Illness Chief Complaint: end-stage CHF, alcohol dependence and abuse Narrative: José Miguel is a 62 yo man on hospice for end-stage CHF and chronic angina. He still has daily episodes of chest pain. He fractured his hip in a fall in April 2018 and was hospitalized at [facility] for a repair. 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 He was unable to care adequately for this man so was asked to move out (his low rent depended on his doing this work). He moved into the [facility] about 5 weeks ago. His sister and DPOA, Charisse Perez, manages the [facility]. Since Christofer moved in there, he has rapidly declined. He now goes across the street in his wheelchair to buy liquor at the local market. He is drinking heavily every day. He had been prescribed morphine for his chest pain, and residual hip pain, but this kept disappearing. I stopped prescribing tablets to him due to concern for diversion or abuse or both. We started him fentanyl patches. They also disappeared. The hospice team had multiple meetings about Christofer this past week. Our AIRPLANE NAVIGATOR tried to get him into [facility], but they, legitimately, reported that they cannot care for hospice patients in their facility. We talked about taking him off hospice so he could get in, but they were still concerned about his level of baseline cardiac illness. I do not think we can get him into any detox/drug abuse facility due to his being on hospice. Christofer broke his phone making it impossible to contact him easily this week. He did manage to call 911 several times. EMS talked to the hospice team and did not transport him to the ER. It was thought that he did not need to be admitted to the hospitalist team, but that I would manage his care and help him detox from alcohol. I explained to him, in front of his sister/DPOA and her , Damien, that we would help him come off his alcohol this week, but that IF he we re to go back to the level of heavy drinking once he returns to [facility], we would have to take him off hospice. We are not able to provide care for patients who are actively drinking/using. His sister and he stated they understood this. I expect that Christofer will be an inpatient on hospice symptom management status for approximately 5-7 days, when he will be discharged back to [facility] on hospice, with the understanding that this service requires relative sobriety. Review of Systems Review of Systems All systems reviewed & are unremarkable except as noted in HPI and below Constitutional Reports difficulty sleeping, Reports excessive sweating, Reports fatigue and Reports weakness Eyes Reports requires corrective lenses ENT Reports dizziness and Reports hoarseness Cardiovascular Reports chest pain with activity, Reports edema, Reports dyspnea, Reports dyspnea on exertion and Reports paroxysmal nocturnal dyspnea Respiratory Reports cough, Reports dyspnea, Reports dyspnea on exertion and Reports wheezing Gastrointestinal Reports constipation Genitourinary Reports difficulty urinating Musculoskeletal Reports abnormal gait, Reports arthralgias, Reports muscle weakness and Reports stiffness Integumentary/Breasts Reports dry skin Neurologic Reports abnormal gait, Reports behavioral changes, Reports dizziness, Reports memory loss and Reports weakness Psychiatric Reports abnormal sleep pattern, Reports behavioral changes, Reports depression, Reports difficulty concentrating, Reports hopelessness, Reports memory loss and Reports mood swings Endocrine Reports excessive sweating and Reports fatigue Allergic/Immunologic Reports wheezing PFSH Medical History Altered mental status (Acute) Fracture, intertrochanteric, left femur (Resolved) GERD (gastroesophageal reflux disease) (Chronic) COPD (chronic obstructive pulmonary disease) (Chronic) Congestive heart failure (CHF) (Chronic) Coronary artery disease (Chronic) Surgical History S/P hernia repair (Acute) Social History adopted: No caregiver/support person: Yes household members: none housing: apartment marital status: SINGLE lives independently: Yes number of children: 0 highest education level completed: some college, no degree financial difficulty paying for basics: very hard service: No retirement: No current occupational status: disabled previous occupational history: hotel/food assembler pets and animals: No well-balanced diet: rarely or never caffeine: Yes high-fat food intake: 2 times daily daily servings fruits/ve-1 daily servings of milk/calcium: 0-1 eating out: rarely or never reads food labels: seldom or never during the past year weight has: remained stable what type of physical activity do you participate in: none Smoking and Tabacco status: Current every day Tobacco: How many years used: 45 counseling given: provider counseling and counseling >3 minutes alcohol intake: current Previous attempts at quittin counseling given: Yes counseling provided: provider counseling and reduce to 2 or less/day special zohra needs: No agree to transfusion: No What is your relationship status?: never How often do you talk on the phone with friends or family?: three or more times per week How often do you get together with friends or relatives?: three or more times per week Do you belong to any clubs or organized social groups?: no Panel score (0-1 are the most socially isolated patients): 1 additional social history: 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 Unable to work much due to heart disease. Has family close. Smokes 2-3 cigarettes a day. Has 1 alcoholic beverage every few days. No other drug use. Meds Home Medications Medication Instructions Recorded Confirmed Type Incruse Ellipta 62.5 mcg INHALATION DAILY 12/18/16 08/15/18 History fluticasone propion-salmeterol 1 ea INHALATION BID 02/12/17 08/15/18 History [Advair Diskus] Proventil Hfa 1 puff INHALATION Q4H PRN inhaler 09/10/17 08/15/18 History bisoprolol fumarate 5 mg PO DAILY #90 tab-cap 09/10/17 06/15/18 Rx furosemide 40 mg PO BID tab-cap 09/10/17 08/15/18 History omeprazole 40 mg PO DAILY tab-cap 09/10/17 08/15/18 History digoxin 125 mcg PO DAILY 01/09/18 08/15/18 History diltiazem HCl [Cartia XT] 240 mg PO DAILY 01/09/18 06/15/18 History isosorbide mononitrate 120 mg PO DAILY AM 01/09/18 08/15/18 History losartan 50 mg PO DAILY AM 01/09/18 08/15/18 History metoprolol succinate 25 mg PO DAILY AM 01/09/18 06/15/18 History nitroglycerin 0.4 mg SUBLINGUAL PRN PRN 01/09/18 08/15/18 History venlafaxine 100 mg PO BID 01/09/18 08/15/18 History isosorbide mononitrate 30 mg PO DAILY #30 tabcr 01/17/18 06/15/18 Rx Allergies Allergy/AdvReac Type Severity Reaction Status Date / Time metoprolol AdvReac fatigue Unverified 06/15/18 10:50 Exam Const General: no acute distress, anxious, disheveled and ill appearing Nutritional Appearance: overweight Orientation: alert, awake and oriented x3 HENMT Head: normocephalic and atraumatic Ears: hearing grossly normal bilaterally General nose exam: external nose normal Face and sinus: dry mucous membranes Mouth: malodorous breath Teeth and gingiva: abnormal tooth or associated gingiva, caries and poor dentition Eyes Conjunctivae: conjunctivae normal Sclera: sclerae normal Neck Neck: no lymphadenopathy and no JVD Resp Effort & Inspection: normal respiratory effort, able to speak in complete sentences and cough Auscultation: bronchial breath sounds, crackles and diminished lung sounds Cardio Jugular venous pressure: no JVD Rate: regular rate Rhythm: regular rhythm Heart Sounds: S1 normal and S2 normal GI Inspection: normal to inspection Palpation: soft Auscultation: normal bowel sounds Skin General skin exam: dry skin and erythema Lesions: no lesions Rashes: no rashes Trauma: no lacerations or abrasions Hair: general thinning Nails: clubbing Neuro General: alert, awake and oriented x3 Cognition: abnormal cognition (denies and confabulates around his etoh use) Gait: gait assisted Method: wheelchair bound Extrem General: clubbing and muscle atrophy Psych Appearance: disheveled Speech and Movement: slowed movement Mood: labile mood and irritable mood Affect: anxious affect Attitude: guarded Thought Process: confabulating and illogical Thought Content: delusions Insight: limited Judgment: limited Results Last Vital Signs Temp 97.9 F 08/15/18 10:40 Pulse 96 H 08/15/18 10:40 Resp 20 08/15/18 10:40 BP 161/66 H 08/15/18 10:40 Pulse Ox 99 08/15/18 10:40
[2018-08-15] MEDS: Furosemide 40 MG TAB PO (16:30)
[2018-08-15 16:42] VITALS: BP 119/66; PULSE 81; RESP 20; TEMP 36.5; O2SAT 94
[2018-08-15] MEDS: Budesonide/Formoterol 160/4.5 6 GM 60 PUFF INH IH (20:05)
[2018-08-15 21:06] VITALS: BP 98/75; PULSE 61; RESP 18; TEMP 36.9; O2SAT 96
[2018-08-16] VITALS (7 sets, daily range): BP systolic 114–128; BP diastolic 59–81; PULSE 50–72; RESP 13–20; TEMP 36.2–36.7; O2SAT 94–100
--- NOTE | 2018-08-16 11:17 | W.PALPGNOTE ---
Date of service: 08/16/18 Assessment and Plan (1) Hospice care patient: Current visit: Yes Status: Chronic Reviewed his medication list from hospice. Unclear what he has actually been taking at home as he has been inebriated daily for last 2 weeks +. Continue cardiac meds. Watch HR both for CIWA and to ensure his beta yadira dose is adequate. Continue diuretics. Nitro to treat chest pain. NO additional narcotics to his fentanyl patch. DR RIVAS TO SEE PRADEEP TOMORROW, 08/17. COVERING FOR ME. (2) Alcoholism /alcohol abuse: Current visit: Yes Status: Acute Continue on his CIWA scale. Expect that he will be here for another 72 hrs or more. Encourage activity once he is more stable. Usually uses wc at home all the time but think he can walk with supervision. No safe to do so now due to his ataxia. Subjective Interval history since last seen: Feeling as if he is beginning to withdraw from alcohol. Scored 11 this am, 14 and 15 overnight. Feels the serax is working. Tremulous. Diaphoretic. Anxious. Reviewed home meds. Added in his venalfaxine (I thought he'd stopped it). Has withdrawn from alcohol multiple times before. Not wanting to quit altogether, just get his drinking under enough control that he can remain on hospice. States that he understands he can not resort to daily inebriation. Will have hospital multiple pressure riveter operator meet with him on Friday to see if this helps. Exam Const General: cooperative, anxious, disheveled, frail appearing and ill appearing Nutritional Appearance: overweight Orientation: alert, awake, oriented to person and oriented to place [facility] Head: normocephalic and atraumatic Ears: hearing grossly normal bilaterally General nose exam: external nose normal Face and sinus: dry mucous membranes Teeth and gingiva: fair dentition Eyes Conjunctivae: conjunctivae normal Sclera: sclerae normal Neck Neck: no lymphadenopathy and no JVD Resp Effort & Inspection: normal respiratory effort and able to speak in complete sentences Auscultation: bronchial breath sounds Cardio Jugular venous pressure: no JVD Rate: regular rate Rhythm: regular rhythm Heart Sounds: S1 normal and S2 normal GI Inspection: normal to inspection Palpation: soft Auscultation: normal bowel sounds Skin General skin exam: dry skin, ecchymosis and erythema Rashes: no rashes Hair: general thinning Nails: clubbing Neuro General: alert and awake Cranial Nerves: hearing normal Cognition: normal cognition Speech: speech normal Extrem General: muscle atrophy Psych Appearance: disheveled Speech and Movement: slowed movement Mood: anxious mood Affect: sad and anxious affect Attitude: cooperative Thought Process: impoverished Thought Content: compulsions (to drink when alcohol is available) Insight: limited Judgment: limited Objective Objective Clinical Data: Vital Signs Temperature 97.3 F L 08/16/18 07:33 Temperature Source Tympanic 08/16/18 07:33 Pulse 72 08/16/18 07:33 Pulse Rhythm Regular 08/16/18 05:22 Respiratory Rate 20 08/16/18 07:33 Respiratory Effort Non-Labored 08/16/18 05:22 Respiratory Depth Normal 08/16/18 05:22 Respiratory Pattern Normal 08/16/18 05:22 Blood Pressure 121/77 08/16/18 07:33 Pulse Oximetry 95 08/16/18 07:33 Oxygen Delivery Method Nasal Cannula 08/16/18 07:33 Oxygen Flow Rate 1.5 08/16/18 07:33 Pain Level 4 08/15/18 10:40 Comment 08/15/18 10:40 Intake & Output 08/15/18 08/15/18 08/16/18 11:59 23:59 12:59 Intake Total 480 / 720 240 / 720 680 / 680 Output Total 350 / 950 600 / 950 550 / 550 Balance 130 / -230 -360 / -230 130 / 130 Weight 179 lb 7.3 oz Intake: Oral 480 / 720 240 / 720 680 / 680 Output: Urine 350 / 950 600 / 950 550 / 550 Other: Urine Color Yellow Yellow Yellow Urine Appearance Clear Clear Clear Urine Odor None None None Comment Void x1 in the urinal. Stool Size Moderate Stool Characteristics Formed Voiding Methods Urinal Urinal Toilet
[2018-08-16] MEDS: Furosemide 40 MG TAB PO ×2 (11:39→16:21)
[2018-08-16] MEDS: Folic Acid 1 MG TAB PO (11:40)
[2018-08-16] MEDS: Isosorbide Mononitrate 60 MG TABCR PO (11:40)
[2018-08-16] MEDS: Budesonide/Formoterol 160/4.5 6 GM 60 PUFF INH IH ×2 (11:41→19:22)
[2018-08-16] MEDS: Multivitamin TAB 1 TAB PO (11:41)
[2018-08-16] MEDS: Thiamine 100 MG TAB PO (11:41)
[2018-08-16] MEDS: Metoprolol CR 50 MG TABCR PO (13:53)
[2018-08-16] MEDS: Venlafaxine 50 MG TAB PO ×2 (13:53→19:22)
[2018-08-16] MEDS: Acetaminophen 500 MG TAB 1000 MG PO (17:25)
--- NOTE | 2018-08-16 18:42 | PDOC.CMPRO ---
Care Management Progress Note Christofer is admitted for Hospice Respite under the care of Dr. Lim-please refer to her notes for more information. Anticipated discharge of 08/19/18 per provider. He will return to [facility] and resume services. He would like to update HIPPA directive; CM will complete with Christofer when able. DR RIVAS TO SEE CHRISTOFER TOMORROW, 08/17.
--- NOTE | 2018-08-16 18:45 | CMPROGNOTE_ITS ---
Care Management Progress Note Christofer is admitted for Hospice Respite under the care of Dr. Lim-please refer to her notes for more information. Anticipated discharge of 08/19/18 per provider. He will return to [facility] and resume services. He would like to update HIPPA directive; CM will complete with Christofer when able. DR RIVAS TO SEE CHRISTOFER TOMORROW, 08/17.
[2018-08-17] MEDS: Venlafaxine 50 MG TAB PO ×2 (07:33→19:32)
[2018-08-17] MEDS: Multivitamin TAB 1 TAB PO (07:34)
[2018-08-17] MEDS: Thiamine 100 MG TAB PO (07:34)
[2018-08-17] MEDS: Furosemide 40 MG TAB PO ×2 (07:34→15:26)
[2018-08-17] MEDS: Isosorbide Mononitrate 60 MG TABCR PO (07:34)
[2018-08-17] MEDS: Folic Acid 1 MG TAB PO (07:34)
[2018-08-17 07:35] VITALS: BP 131/94; PULSE 63; RESP 18; TEMP 36.5; O2SAT 98
[2018-08-17] MEDS: Metoprolol CR 50 MG TABCR PO (07:38)
[2018-08-17] MEDS: Budesonide/Formoterol 160/4.5 6 GM 60 PUFF INH IH ×2 (09:26→19:32)
[2018-08-17 10:00] VITALS: BP 128/93; PULSE 72; RESP 20; TEMP 36.5; O2SAT 96
[2018-08-17 12:00] VITALS: BP 133/82; PULSE 55; RESP 18; TEMP 36.2; O2SAT 99
[2018-08-17 14:00] VITALS: BP 125/83; PULSE 58; RESP 18; TEMP 37; O2SAT 99
--- NOTE | 2018-08-17 14:42 | PDOC.CMPRO ---
- If Service Date Differs Date of service: 08/17/18 Time of Service: 14:42 Care Management Progress Note Christofer remains at [facility] for Hospice symptom management. Dr. Mcintosh to meet with him today. Christofer will return home to the [facility] on Hospice once symptoms managed.
--- NOTE | 2018-08-17 14:43 | CMPROGNOTE_ITS ---
- If Service Date Differs Date of service: 08/17/18 Time of Service: 14:42 Care Management Progress Note Christofer remains at [facility] for Hospice symptom management. Dr. Mcintosh to meet with him today. Christofer will return home to the [facility] on Hospice once symptoms managed.
--- NOTE | 2018-08-17 15:20 | CHAPLAIN ---
Christofer was traveling around the floor in a wheelchair today. I meet him in his room and gave him a prayer shawl. He suggested I trying visiting again tomorrow, as he's not feeling well today. Christofer said he has a sister who check in on him where he lives at the [facility]. Christofer is a hospice patient he expects that Dr. Lim will be here tomorrow, and possibly Dr. Mcintosh today. Christofer said JESSENIA Moralez and CAITLIN Angel, have been taking good care of him today.
[2018-08-17 16:20] VITALS: BP 121/80; PULSE 60; RESP 19; TEMP 36.2; O2SAT 98
[2018-08-17 20:17] VITALS: BP 172/69; PULSE 52; RESP 20; TEMP 36.7; O2SAT 98
--- NOTE | 2018-08-17 20:29 | W.HOSPICECON ---
Date of service: 08/17/18 Time of Service: 18:29 History of Present Illness Chief Complaint: Etoh withdrawl while on Hospice for cardiac issues. Narrative: Christofer is hospitalized for alcohol withdrawal. He is now approximately 36 hours from alcohol consumption. He states that he is extremely agitated. He does not think that the Serax is working well. I did check with nursing and he is getting it regularly according to the CIWA score Consults Consult date: 08/17/18 Review of Systems Constitutional Reports daytime sleepiness, Reports difficulty sleeping, Reports headache(s) and Reports weakness Eyes Reports system reviewed and no additional complaints, except as docu ENT Reports headache(s) Cardiovascular Reports chest pain at rest, Reports chest pain with activity, Reports irregular heart rhythm, Reports lightheadedness, Reports dyspnea, Reports dyspnea on exertion and Reports orthopnea Respiratory Reports dyspnea and Reports dyspnea on exertion Genitourinary Reports system reviewed and no additional complaints, except as docu Musculoskeletal Reports system reviewed and no additional complaints, except as docu Neurologic Reports confusion, Reports headache(s), Reports lack of coordination and Reports weakness Psychiatric Reports abnormal sleep pattern, Reports anxiety, Reports change in appetite, Reports confusion, Reports difficulty concentrating and Reports irritability PFSH Medical History Altered mental status (Acute) Fracture, intertrochanteric, left femur (Resolved) GERD (gastroesophageal reflux disease) (Chronic) COPD (chronic obstructive pulmonary disease) (Chronic) Congestive heart failure (CHF) (Chronic) Coronary artery disease (Chronic) Surgical History S/P hernia repair (Acute) Social History adopted: No caregiver/support person: Yes household members: none housing: apartment marital status: SINGLE lives independently: Yes number of children: 0 highest education level completed: some college, no degree financial difficulty paying for basics: very hard service: No longterm: No current occupational status: disabled previous occupational history: hotel/food services manager pets and animals: No well-balanced diet: rarely or never caffeine: Yes high-fat food intake: 2 times daily daily servings fruits/ve-1 daily servings of milk/calcium: 0-1 eating out: rarely or never reads food labels: seldom or never during the past year weight has: remained stable what type of physical activity do you participate in: none Smoking and Tabacco status: Current every day Tobacco: How many years used: 45 counseling given: provider counseling and counseling >3 minutes alcohol intake: current Previous attempts at quittin counseling given: Yes counseling provided: provider counseling and reduce to 2 or less/day special zohra needs: No agree to transfusion: No What is your relationship status?: never How often do you talk on the phone with friends or family?: three or more times per week How often do you get together with friends or relatives?: three or more times per week Do you belong to any clubs or organized social groups?: no Panel score (0-1 are the most socially isolated patients): 1 additional social history: 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 Unable to work much due to heart disease. Has family close. Smokes 2-3 cigarettes a day. Has 1 alcoholic beverage every few days. No other drug use. Exam Const General: cooperative, anxious and frail appearing Nutritional Appearance: average body habitus Orientation: oriented x3 Eyes General: appearance normal, both eyes and all related structures Resp Effort & Inspection: able to speak in complete sentences Auscultation: abnormal I/E ratio Cardio Rate: tachycardic GI Palpation: soft Results Last Vital Signs Temp 98.1 F 08/17/18 20:17 Pulse 52 L 08/17/18 20:17 Resp 20 08/17/18 20:17 BP 172/69 H 08/17/18 20:17 Pulse Ox 98 08/17/18 20:17 Assessment and Plan (1) Angina concurrent with and due to arteriosclerosis of coronary artery: Current visit: Yes Status: Acute (2) Hospice care patient: Current visit: Yes Status: Chronic (3) Alcoholism /alcohol abuse: Current visit: Yes Status: Acute Continue with the CIWA withdrawal scoring. He is receiving his Serax regularly. I am not going to change this dosage Is on a fentanyl patch for pain control. There have been long discussions and battles regarding pain medication with him I am not going to change this Heart disease he is tachycardic at this time I am certain that this is from his withdrawal. I did speak with nursing and communicated this with Dr. Wendi Joshua This document was created by [employer] voice recognition and may contain grammatical and translation errors.
[2018-08-17] MEDS: Acetaminophen 500 MG TAB 1000 MG PO (21:13)
[2018-08-18] VITALS (12 sets, daily range): BP systolic 124–164; BP diastolic 78–102; PULSE 60–98; RESP 16–20; TEMP 36.2–36.5; O2SAT 96–99
[2018-08-18] MEDS: Furosemide 40 MG TAB PO ×2 (08:38→16:51)
[2018-08-18] MEDS: Isosorbide Mononitrate 60 MG TABCR PO (08:39)
[2018-08-18] MEDS: Multivitamin TAB 1 TAB PO (08:39)
[2018-08-18] MEDS: Metoprolol CR 50 MG TABCR PO (08:39)
[2018-08-18] MEDS: Thiamine 100 MG TAB PO (08:39)
[2018-08-18] MEDS: Folic Acid 1 MG TAB PO (08:39)
[2018-08-18] MEDS: Venlafaxine 50 MG TAB PO ×2 (08:39→20:00)
[2018-08-18] MEDS: Budesonide/Formoterol 160/4.5 6 GM 60 PUFF INH IH ×2 (08:55→20:00)
--- NOTE | 2018-08-18 10:56 | CHAPLAIN ---
Christofer was waking up from a nap when I visited. He said he'd had chest pains this morning, which is usual for him. But he also said he'd had the best night's rest since he's been here. He expects to her from his sister today. She usually calls. And Christofer said Dr. Lim will probably visit him. Christofer appears to be easy going. and comfortable with his hospitalization. I will check back with him later.
[2018-08-18] MEDS: fentaNYL 25 MCG PATCH TD (12:06)
--- NOTE | 2018-08-18 14:10 | W.PM.PROGNOT ---
Date of Service Date of service: 08/18/18 Time of Service: 12:18 Assessment and Plan (1) Angina concurrent with and due to arteriosclerosis of coronary artery: Current visit: Yes Status: Chronic had episode chest pain today resolved with nitro on both long and short acting may need to increase long acting dose before discharge (2) Hospice care patient: Current visit: Yes Status: Chronic here on symptom management status plan is to d/c back to [facility] by end of week, ideally 1-2 days from now IF HE DRINKS TO INTOXICATION DAILY AGAIN, he will be discharged from hospice (3) Alcoholism /alcohol abuse: Current visit: Yes Status: Chronic on CIWA scale scoring lower looks better not diaphoretic today not able to manage his benzodiazepines at home overuses them will go home without any prn dosing (4) Congestive heart failure (CHF): Current visit: Yes Status: Chronic primary reason for hospice continue diuretics continue nitrites encourage OOB as tolerated. Qualifiers: Heart failure type: end stage Heart failure chronicity: Qualified Code(s): I50.84 - End stage heart failure Subjective Patient reports: no new complaints, feels better and pain is less Interval history since last seen: Still scoring high enough to be medicated on CIWA, but now 17, down from [address] Mcintosh yesterday. Sleeping comfortably when I first came in. [place] himself in his WC when I returned after lunch. Some tremor. One episode of chest pain (usual for him). Treated with nitro with good results. Exam Const General: cooperative, comfortable, disheveled and ill appearing Nutritional Appearance: overweight Orientation: alert, awake and oriented x3 HEN[facility] Head: normocephalic and atraumatic Ears: hearing grossly normal bilaterally General nose exam: external nose normal Eyes General: appearance normal, both eyes and all related structures Conjunctivae: conjunctivae normal Sclera: sclerae normal Neck Neck: normal visual inspection, no lymphadenopathy and no JVD Resp Effort & Inspection: normal respiratory effort and able to speak in complete sentences Auscultation: bronchovesicular breath sounds and diminished lung sounds Cardio Jugular venous pressure: no JVD Rate: regular rate Rhythm: regular rhythm Heart Sounds: S1 normal and S2 normal GI Inspection: normal to inspection Palpation: soft Auscultation: normal bowel sounds Skin General skin exam: ecchymosis and erythema (face with chronic redness from drinking) Trauma: no lacerations or abrasions Hair: general thinning Nails: clubbing Neuro General: alert, awake and oriented x3 Cognition: normal cognition (no confabulating today) Speech: speech normal Gait: gait assisted Method: wheelchair bound Extrem General: clubbing Psych Appearance: disheveled Mental Status: mental status grossly normal Speech and Movement: delayed speech and slowed movement Mood: dysthymic mood Affect: sad and dysphoric affect Attitude: cooperative Thought Process: impoverished Thought Content: normal Insight: limited Judgment: limited Objective Objective Clinical Data: Vital Signs Temperature 97.3 F L 08/18/18 12:30 Temperature Source Tympanic 08/18/18 12:30 Pulse 78 08/18/18 12:30 Pulse Rhythm Regular 08/16/18 08:40 Respiratory Rate 18 08/18/18 12:30 Respiratory Effort Non-Labored 08/17/18 17:11 Respiratory Depth Normal 08/17/18 17:11 Respiratory Pattern Normal 08/17/18 17:11 Blood Pressure 148/89 H 08/18/18 12:30 Pulse Oximetry 99 08/18/18 12:30 Oxygen Delivery Method Room Air 08/18/18 12:30 Oxygen Flow Rate 0 08/18/18 12:30 Pain Level 3 08/18/18 12:30 Comment 08/18/18 09:39 Intake & Output 08/17/18 08/18/18 08/18/18 23:59 11:59 23:59 Intake Total 720 / 920 570 / 810 240 / 810 Output Total 650 / 1450 850 / 1200 350 / 1200 Balance 70 / -530 -280 / -390 -110 / -390 Intake: Oral 720 / 920 570 / 810 240 / 810 Output: Urine 650 / 1450 850 / 1200 350 / 1200 Other: Urine Color Yellow Yellow Yellow Straw Urine Appearance Clear Clear Clear Urine Odor Normal Stool Size Large Moderate Stool Characteristics Formed Formed Voiding Methods Urinal Diaper Incontinent
[2018-08-18] MEDS: Acetaminophen 500 MG TAB 1000 MG PO ×2 (14:48→22:44)
[2018-08-19] VITALS (8 sets, daily range): BP systolic 103–188; BP diastolic 76–145; PULSE 57–114; RESP 18–23; TEMP 36.4–36.8; O2SAT 96–100
[2018-08-19] MEDS: Folic Acid 1 MG TAB PO (07:37)
[2018-08-19] MEDS: Multivitamin TAB 1 TAB PO (07:37)
[2018-08-19] MEDS: Venlafaxine 50 MG TAB PO ×2 (07:37→20:09)
[2018-08-19] MEDS: Isosorbide Mononitrate 60 MG TABCR PO (07:38)
[2018-08-19] MEDS: Furosemide 40 MG TAB PO ×2 (07:38→15:42)
[2018-08-19] MEDS: Metoprolol CR 50 MG TABCR PO (07:38)
[2018-08-19] MEDS: Thiamine 100 MG TAB PO (07:38)
[2018-08-19] MEDS: Budesonide/Formoterol 160/4.5 6 GM 60 PUFF INH IH ×2 (08:54→20:09)
--- NOTE | 2018-08-19 14:54 | W.PM.PROGNOT ---
Date of Service Date of service: 08/19/18 Time of Service: 14:55 Assessment and Plan (1) Hospice care patient: Current visit: Yes Status: Chronic Plan is to discharge home to [facility] tomorrow. Sister and DPOA will be transporting him. She is the audio/visual manager of [facility] and checks on him regularly. (2) Alcoholism /alcohol abuse: Current visit: Yes Status: Chronic finished his acute withdrawal doesn't want antabuse or naltrexone states that he understands that IF he returns to daily inebriation, he will be discharged from hospice (3) Congestive heart failure (CHF): Current visit: Yes Status: Chronic able to speak without dyspnea today does get SOB with transfer to toilet, etc. Qualifiers: Heart failure type: end stage Heart failure chronicity: Qualified Code(s): I50.84 - End stage heart failure (4) Angina concurrent with and due to arteriosclerosis of coronary artery: Current visit: Yes Status: Chronic no chest pain today continue same doses of long-acting and short acting nitro Subjective Patient reports: no new complaints, feels better and shortness of breath Interval history since last seen: Feeling better. Through his acute withdrawal period. Changing him over to scheduled clonazepam for now. 1 mg po tid. Stopping CIWA. Wanted to observe him for 24 hours prior to discharge to ensure he is able to function independently. Advised him to call his sister to arrange for cotton picking machine operator tomorrow afternoon. Does have general anxiety disorder and chronic tremor at baseline. Exam Const General: cooperative, comfortable and no acute distress Nutritional Appearance: overweight Orientation: alert, awake and oriented x3 [facility] Head: normocephalic and atraumatic Ears: hearing grossly normal bilaterally General nose exam: external nose normal Eyes Conjunctivae: conjunctivae normal Sclera: sclerae normal Neck Neck: no lymphadenopathy and no JVD Resp Effort & Inspection: normal respiratory effort, able to speak in complete sentences and no cough Auscultation: clear to auscultation bilaterally and diminished lung sounds Cardio Jugular venous pressure: no JVD Rate: regular rate Rhythm: regular rhythm Heart Sounds: S1 normal and S2 normal GI Palpation: soft Auscultation: normal bowel sounds Neuro General: alert, awake and oriented x3 Cranial Nerves: CN's II-XI intact bilaterally Cognition: normal cognition Speech: speech normal Gait: gait assisted (has not been able to walk independently since he broke his hip 11/18) Method: wheelchair bound Motor: tremor Extrem General: clubbing Psych Appearance: grossly normal Mental Status: mental status grossly normal Mood: dysthymic mood Affect: sad Attitude: cooperative Thought Process: impoverished Insight: fair Judgment: fair Objective Objective Clinical Data: Vital Signs Temperature 97.7 F 08/19/18 11:21 Temperature Source Tympanic 08/19/18 11:21 Pulse 78 08/19/18 11:21 Pulse Rhythm Regular 08/16/18 08:40 Respiratory Rate 20 08/19/18 11:21 Respiratory Effort 08/19/18 12:14 Respiratory Depth Normal 08/19/18 12:14 Respiratory Pattern Normal 08/19/18 12:14 Blood Pressure 161/108 H 08/19/18 11:21 Pulse Oximetry 96 08/19/18 11:21 Oxygen Delivery Method Room Air 08/19/18 11:21 Oxygen Flow Rate 0 08/19/18 11:21 Pain Level 4 08/18/18 14:48 Comment 08/18/18 09:39 Intake & Output 08/18/18 08/19/18 08/19/18 23:59 11:59 23:59 Intake Total 720 / 1290 100 / 400 300 / 400 Output Total 570 / 1420 1250 / 1250 Balance 150 / -130 -1150 / -850 300 / -850 Intake: Oral 720 / 1290 100 / 400 300 / 400 Output: Urine 570 / 1420 1250 / 1250 Other: Urine Color Yellow Yellow Urine Appearance Clear Cloudy Clear Urine Odor Normal Stool Size Moderate Stool Characteristics Formed Voiding Methods Urinal Urinal
--- NOTE | 2018-08-19 15:04 | PGE_ITS ---
Date of Service Date of service: 08/19/18 Time of Service: 14:55 Assessment and Plan (1) Hospice care patient: Current visit: Yes Status: Chronic Plan is to discharge home to [facility] tomorrow. Sister and DPOA will be transporting him. She is the biofuels technology manager of [facility] and checks on him regularly. (2) Alcoholism /alcohol abuse: Current visit: Yes Status: Chronic finished his acute withdrawal doesn't want antabuse or naltrexone states that he understands that IF he returns to daily inebriation, he will be discharged from hospice (3) Congestive heart failure (CHF): Current visit: Yes Status: Chronic able to speak without dyspnea today does get SOB with transfer to toilet, etc. Qualifiers: Heart failure type: end stage Heart failure chronicity: Qualified Code(s): I50.84 - End stage heart failure (4) Angina concurrent with and due to arteriosclerosis of coronary artery: Current visit: Yes Status: Chronic no chest pain today continue same doses of long-acting and short acting nitro Subjective Patient reports: no new complaints, feels better and shortness of breath Interval history since last seen: Feeling better. Through his acute withdrawal period. Changing him over to scheduled clonazepam for now. 1 mg po tid. Stopping CIWA. Wanted to observe him for 24 hours prior to discharge to ensure he is able to function independently. Advised him to call his sister to arrange for pick pulling machine tender tomorrow afternoon. Does have general anxiety disorder and chronic tremor at baseline. Exam Const General: cooperative, comfortable and no acute distress Nutritional Appearance: overweight Orientation: alert, awake and oriented x3 [facility] Head: normocephalic and atraumatic Ears: hearing grossly normal bilaterally General nose exam: external nose normal Eyes Conjunctivae: conjunctivae normal Sclera: sclerae normal Neck Neck: no lymphadenopathy and no JVD Resp Effort & Inspection: normal respiratory effort, able to speak in complete sentences and no cough Auscultation: clear to auscultation bilaterally and diminished lung sounds Cardio Jugular venous pressure: no JVD Rate: regular rate Rhythm: regular rhythm Heart Sounds: S1 normal and S2 normal GI Palpation: soft Auscultation: normal bowel sounds Neuro General: alert, awake and oriented x3 Cranial Nerves: CN's II-XI intact bilaterally Cognition: normal cognition Speech: speech normal Gait: gait assisted (has not been able to walk independently since he broke his hip 11/18) Method: wheelchair bound Motor: tremor Extrem General: clubbing Psych Appearance: grossly normal Mental Status: mental status grossly normal Mood: dysthymic mood Affect: sad Attitude: cooperative Thought Process: impoverished Insight: fair Judgment: fair Objective Objective Clinical Data: Vital Signs Temperature 97.7 F 08/19/18 11:21 Temperature Source Tympanic 08/19/18 11:21 Pulse 78 08/19/18 11:21 Pulse Rhythm Regular 08/16/18 08:40 Respiratory Rate 20 08/19/18 11:21 Respiratory Effort 08/19/18 12:14 Respiratory Depth Normal 08/19/18 12:14 Respiratory Pattern Normal 08/19/18 12:14 Blood Pressure 161/108 H 08/19/18 11:21 Pulse Oximetry 96 08/19/18 11:21 Oxygen Delivery Method Room Air 08/19/18 11:21 Oxygen Flow Rate 0 08/19/18 11:21 Pain Level 4 08/18/18 14:48 Comment 08/18/18 09:39 Intake & Output 08/18/18 08/19/18 08/19/18 23:59 11:59 23:59 Intake Total 720 / 1290 100 / 400 300 / 400 Output Total 570 / 1420 1250 / 1250 Balance 150 / -130 -1150 / -850 300 / -850 Intake: Oral 720 / 1290 100 / 400 300 / 400 Output: Urine 570 / 1420 1250 / 1250 Other: Urine Color Yellow Yellow Urine Appearance Clear Cloudy Clear Urine Odor Normal Stool Size Moderate Stool Characteristics Formed Voiding Methods Urinal Urinal
[2018-08-19] MEDS: Acetaminophen 500 MG TAB 1000 MG PO (15:42)
[2018-08-19] MEDS: clonazePAM 0.5 MG TAB PO (15:42)
--- NOTE | 2018-08-19 16:05 | PHARADMIT ---
Admission Pharmacy Clinical Review hospice symptom management Code Status DNR/DNI Current Weight 81.4 kg Renally Cleared and Narrow Therapeutic Index Meds Crcl ~ 56.00 mL/min current meds okay QTc Value / Action Taken n/a BP Control, Fever BP 103/76 afebrile Electrolytes reviewed n/a DVT Prophylaxis none Opiate Usage / Scheduled Bowel Regimen Ordered josefina/prn Plt/SCr for Heparin / Enoxaparin n/a INR for Warfarin n/a H/H stable, WBC/Bands n/a Antibiotic appropriateness n/a Cultures and Sensitivities n/a Surgical ABX d/c within 24 hr n/a DM control / Insulin Dosing n/a Heart Failure (Check EF%) (BUTCH's, B-Block, Diuretics) furosemide, metoprolol, IV to PO Switch n/a Home Meds Reviewed multiple anticholinergic meds- imeclidinium, haloperidol, prochlorperazine multiple beta blockers- metoprolol and bisoprolol Home Meds Not Ordered aspirin, bisoprolol, digoxin, diltiazem, docusate, advair, haloperidol, lorazepam, losartan, omeprazole, prochlorperazine, senna, fleet enema, umeclidinium Comments
[2018-08-19] MEDS: clonazePAM 1 MG TAB PO (20:09)
--- NOTE | 2018-08-20 01:16 | NUR.NOTE ---
Nursing Note: 08/19/18 2247H Patient c/o stabbing chest pain. VS taken BP 188/105 Nitro x3 given. Chest pain has receded BP 138/[address] Joshua notified. Awaiting confirmation from
[2018-08-20] MEDS: traZODone 100 MG TAB PO (02:09)
[2018-08-20 07:46] VITALS: BP 150/94; PULSE 70; RESP 18; TEMP 37.1; O2SAT 98
[2018-08-20] MEDS: Thiamine 100 MG TAB PO (08:02)
[2018-08-20] MEDS: Folic Acid 1 MG TAB PO (08:02)
[2018-08-20] MEDS: clonazePAM 1 MG TAB PO (08:02)
[2018-08-20] MEDS: Multivitamin TAB 1 TAB PO (08:02)
[2018-08-20] MEDS: Venlafaxine 50 MG TAB PO (08:02)
[2018-08-20] MEDS: Isosorbide Mononitrate 60 MG TABCR PO (08:02)
[2018-08-20] MEDS: Furosemide 40 MG TAB PO (08:02)
[2018-08-20] MEDS: Metoprolol CR 50 MG TABCR PO (08:02)
[2018-08-20] MEDS: Budesonide/Formoterol 160/4.5 6 GM 60 PUFF INH IH (08:19)
--- NOTE | 2018-08-20 10:32 | PDOC.CMDIS ---
- If Service Date Differs Date of service: 08/20/18 Time of Service: 10:32 LACE Index Scoring Tool - Questions: Length of Stay (in days): 4 - 6 Acuity (Admit via E.D.?): No Comorbidities: Congestive Heart Failure, Chronic Pulmonary Disease E.D. Visits: 7 - Answers: Total Score: 13 Risk of Readmission: High Risk Care Management Discharge Reason for Hospitalization: Hospice symptom management Discharge Plan: Christofer will return home on Hospice today to the [facility]. CM spoke with Shahla sister Charisse whom will transport at 1300, and states that she has removed the alcohol and bottles from his apartment. staff developer is aware of time and mode of transport. Patient/Family Education Needs: Review DC instructions, any limitations, and discuss 'Ask Me Three' Services Needed at Discharge: Home Health Care Services (Hospice)
--- NOTE | 2018-08-20 10:47 | DSE_ITS ---
Date of service: 08/20/18 Time of Service: 10:45 DS: Diagnosis Discharge Diagnosis (1) Hospice care patient: Status: Chronic (2) Alcoholism /alcohol abuse: Status: Chronic (3) Congestive heart failure (CHF): Status: Chronic (4) Angina concurrent with and due to arteriosclerosis of coronary artery: Status: Chronic Discharge Plan Disposition Patient Disposition: HOME W/HOME HEALTH SERVICE Condition: Stable Discharge Details Reason For Visit: HOSPICE SYMPTOM MANAGEMENT, ETOH ABUSE, CHF Admit Date/Time: 08/15/18 10:35 Admit Provider: Wendi Lim Attending Provider: Wendi Lim Primary Care Provider: Devin Barron Hospital Course Hospital Course: I admitted Christofer the am of 08/15/18 as a hospice symptom management patient with the intent of having him safely withdraw from alcohol. His hospice diagnosis is CHF, partly ischemic, partly due to excess alcohol. He was brought into the hospital by his sister and CHINYERE, Charisse Perez and her Damien. (Phone number [phone].) He had consumed 2 beers by 10 am. He has not had any alcohol since admission. He was put on CIWA protocol with serax to treat. He had no severe detoxification symptoms. He never scored higher than 20 on the CIWA scale. He did not require ICU admission or IV benzodiazepines. The afternoon prior to discharge, he was changed over to scheduled clonazepam at 1 mg po tid. He was taken off his CIWA protocol and his serax. The evening before discharge, he had a difficult phone call with his sister. She had seen the condition of his apartment when she went in to clean it up prior to his planned return today. She called herself naive in terms of understanding the extent of his alcohol consumption. This interaction resulted in Christofer feeling more anxious. He had an episode of chest pain, similar to what he has daily. He told the charge nurse who called me to see if she should administer morphine. Christofer has also misused his narcotic medication on hospice so we are trying to avoid that. The night time charge nurse explained that at the time of his reported chest pain he was wheeling himself around in his wheelchair. He was not diaphoretic. I did not think the CP significant given this. I did order trazodone to help him sleep. This helped. He slept soundly from 3 am to 10 am. He will be going home today with his [id number] Damien by private car. Hospice staff, his sister/DPCARMEN Mcqueen, Christofer and I all agree that IF Christofer returns to daily inebriation, he will be discharged from hospice. We are not able to meet his medical needs in this setting. Home Meds and New Rx's Prescriptions: New metoprolol succinate 50 mg Tablet Extended Release 24 Hr 50 mg PO DAILY Qty: 14 RF: 4 clonazepam 1 mg Tablet 1 mg PO TID Qty: 9 RF: 0 fentanyl [Duragesic] 25 mcg/hr Patch 72 Hour 25 mcg Transdermal Q72H Qty: 1 RF: 0 Continued furosemide 40 MG tablet 40 mg PO BID RF: 0 omeprazole 20 MG capsule,delayed release(DR/EC) 40 mg PO DAILY RF: 0 fluticasone propion-salmeterol [Advair Diskus] 1 EACH blister with device 1 ea Inhalation BID RF: 0 nitroglycerin 0.4 MG tablet, sublingual 0.4 mg Sublingual PRN PRNRF: 0 diltiazem HCl [Cartia XT] 240 MG capsule,extended release 24hr 240 mg PO DAILY RF: 0 venlafaxine 100 MG tablet 100 mg PO BID RF: 0 isosorbide mononitrate 60 MG tablet extended release 24 hr 120 mg PO DAILY AM RF: 0 digoxin 125 MCG tablet 125 mcg PO DAILY RF: 0 haloperidol 0.5 mg Tablet 1 tab PO Q6H PRN (Reason: Agitation) RF: 0 acetaminophen [Tylenol Extra Strength] 500 mg Tablet 500 mg PO Q6H PRNRF: 0 aspirin 325 mg Tablet,Delayed Release (Dr/Ec) 1 tab PO DAILY RF: 0 Fleet Enema 19-7 gram/118 mL Enema 118 ml [place] ONCE PRNRF: 0 nitroglycerin 0.4 mg Tablet, Sublingual 0.4 mg SUBLINGUAL Q5-15M PRNRF: 0 prochlorperazine maleate 10 mg Tablet 1 tab PO Q6H PRNRF: 0 albuterol sulfate [Proventil HFA] 90 mcg/actuation Hfa Aerosol Inhaler 1 puff Inhalation Q4H PRNRF: 0 sennosides [senna] 8.6 mg Tablet 1 - 3 tab PO BID PRNRF: 0 Discontinued PROVENTIL HFA 18 GM HFA.AER.AD 1 puff Inhalation Q4H PRN RF: 0 Incruse Ellipta 1 PUFF blister with device 62.5 mcg Inhalation DAILY RF: 0 metoprolol succinate 25 MG tablet extended release 24 hr 50 mg PO BID RF: 0 losartan 50 MG tablet 50 mg PO DAILY AM RF: 0 docusate sodium 100 mg Capsule 100 mg PO DAILY PRNRF: 0 lorazepam [Ativan] 1 mg Tablet 1 tab PO Q6H PRN PRN (Reason: Nausea) RF: 0 Discharge Instructions Instructions: Alcohol Dependence (GEN), Alcohol Use Disorder (DC) Additional Instructions: restart hospice upon return to your apt nurses will hand deliver one fentanyl patch and 9 tabs q 3 days Care Plan Goals: be comfortable but not inebriated Activity:: Activity as Tolerated Equipment/Supplies:: No Equipment Needed Diet:: As Tolerated Discharge Orders Discharge Orders: Discharge Order (Routine); Ordered 08/20/18 Ordered By: Wendi Grigsby Ready Exam Const General: cooperative, comfortable, no acute distress, anxious, disheveled, frail appearing and ill appearing Nutritional Appearance: overweight Orientation: alert, awake, oriented x3, oriented to person and oriented to place HENTX Head: normocephalic and atraumatic Ears: hearing grossly normal bilaterally General nose exam: external nose normal Face and sinus: dry mucous membranes Mouth: malodorous breath Teeth and gingiva: abnormal tooth or associated gingiva, caries, fair dentition and poor dentition Eyes General: appearance normal, both eyes and all related structures Conjunctivae: conjunctivae normal Sclera: sclerae normal Neck Neck: normal visual inspection, no lymphadenopathy and no JVD Resp Effort & Inspection: normal respiratory effort, able to speak in complete sentences and no cough Auscultation: clear to auscultation bilaterally, bronchial breath sounds, bronchovesicular breath sounds, crackles and diminished lung sounds Cardio Jugular venous pressure: no JVD Rate: regular rate Rhythm: regular rhythm Heart Sounds: S1 normal and S2 normal GI Inspection: normal to inspection Palpation: soft Auscultation: normal bowel sounds Skin General skin exam: dry skin, ecchymosis and erythema (face with chronic redness from drinking) Lesions: no lesions Rashes: no rashes Trauma: no lacerations or abrasions Hair: general thinning Nails: clubbing Neuro General: alert, awake and oriented x3 Cranial Nerves: CN's II-XI intact bilaterally and hearing normal Cognition: normal cognition and abnormal cognition (denies and confabulates around his etoh use) Speech: speech normal Gait: gait assisted (has not been able to walk independently since he broke his hip 04/26) Method: wheelchair bound Motor: tremor Extrem General: clubbing and muscle atrophy Psych Appearance: grossly normal and disheveled Mental Status: mental status grossly normal Speech and Movement: delayed speech and slowed movement Mood: anxious mood, dysthymic mood, labile mood and irritable mood Affect: sad, anxious affect and dysphoric affect Attitude: cooperative and guarded Thought Process: confabulating, illogical and impoverished Thought Content: normal, compulsions (to drink when alcohol is available) and delusions Insight: fair and limited Judgment: fair and limited DS: Data Vitals/I&O Vitals and I&O: Vital Signs Temperature 98.8 F 08/20/18 07:46 Temperature Source Tympanic 08/20/18 07:46 Pulse 70 08/20/18 07:46 Pulse Rhythm Regular 08/16/18 08:40 Respiratory Rate 18 08/20/18 07:46 Respiratory Effort Non-Labored 08/20/18 10:19 Respiratory Depth Normal 08/20/18 10:19 Respiratory Pattern Normal 08/20/18 10:19 Blood Pressure 150/94 H 08/20/18 07:46 Pulse Oximetry 98 08/20/18 07:46 Oxygen Delivery Method Room Air 08/20/18 07:46 Oxygen Flow Rate 0 08/20/18 07:46 Pain Level 3 08/20/18 07:46 Comment 08/18/18 09:39 Intake & Output 08/19/18 08/19/18 08/20/18 11:59 23:59 11:59 Intake Total 1959 Output Total 1250 / 2145 895 / 2145 600 / 600 Balance -1150 / -185 965 / -185 -600 / -600 Intake: Oral 1959 Output: Urine 1250 / 2145 895 / 2145 600 / 600 Other: Urine Color Yellow Yellow Yellow Urine Appearance Cloudy Clear Clear Urine Odor Normal Voiding Methods Urinal Urinal Urinal Labs on day of discharge: Labs from last 24 hours 08/19/18 23:12 Troponin I Cancelled [facility] Medical History Angina concurrent with and due to arteriosclerosis of coronary artery (Chronic) Hospice care patient (Chronic) Alcoholism /alcohol abuse (Chronic) Altered mental status (Acute) Fracture, intertrochanteric, left femur (Resolved) GERD (gastroesophageal reflux disease) (Chronic) COPD (chronic obstructive pulmonary disease) (Chronic) Congestive heart failure (CHF) (Chronic) Coronary artery disease (Chronic) Surgical History S/P hernia repair (Acute) Social History Smoking/Tobacco Use Status: Current every day Tobacco: How many years used: 45 Counseling given: provider counseling and counseling >3 minutes Alcohol Intake: current Previous attempts at quittin Counseling given: Yes Counseling provided: provider counseling and reduce to 2 or less/day Drug use: Never Adopted: No Caregiver/Support person: Yes Household members: none Housing: apartment Pets and animals: No What is your relationship status?: never How often do you talk on the phone with friends or family?: three or more times per week How often do you get together with friends or relatives?: three or more times per week Do you belong to any clubs or organized social groups?: no Panel score (0-1 are the most socially isolated patients): 1 Special zhora needs: No Agree to transfusion: No Do you feel safe in your relationship?: No Additional Social history: 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 Unable to work much due to heart disease. Has family close. Smokes 2-3 cigarettes a day. Has 1 alcoholic beverage every few days. No other drug use.
--- NOTE | 2018-08-20 11:43 | CHAPLAIN ---
Christofer told me he is going home to his apartment at the [facility] today. He did not sleep well last night and was unable to fall asleep until after 3 a.m. He said is mind was going fast and he felt unsettled. So he slept in this morning and was not feeling up to eating breakfast. He told Dr. Lim he plans to begin smoking again when he goes home. Christofer's mother, Rocío in February and had lived at the [facility] for nine years, so he know many of the residents there from visiting his mom. Christofer grew up in [place], [place] and went a way to high school, including some time at a school in [place], so he said he didn't have friend here during that time. He said he knows when he goes home, the needs to find things to do other than staying in his apartment and vegging. I suggested that through Hospice he could ask to have the import export agent, Rev. Amna Thompson visit him.
--- NOTE | 2018-08-20 11:49 | CMDISCH_ITS ---
- If Service Date Differs Date of service: 08/20/18 Time of Service: 10:32 LACE Index Scoring Tool - Questions: Length of Stay (in days): 4 - 6 Acuity (Admit via E.D.?): No Comorbidities: Congestive Heart Failure, Chronic Pulmonary Disease E.D. Visits: 7 - Answers: Total Score: 13 Risk of Readmission: High Risk Care Management Discharge Reason for Hospitalization: Hospice symptom management Discharge Plan: Christofer will return home on Hospice today to the [facility]. CM spoke with Shahla sister Charisse whom will transport at 1300, and states that she has removed the alcohol and bottles from his apartment. director of midwifery/staff midwife is aware of time and mode of transport. Patient/Family Education Needs: Review DC instructions, any limitations, and discuss 'Ask Me Three' Services Needed at Discharge: Home Health Care Services (Hospice)
== END 2018-08-20 12:53 | disposition home health service (06) | DRG 897 ==
PROVIDERS: Admitting Provider Family Medicine; PCP Specialist/Technologist Athletic Trainer; Visit Provider Family Medicine
DX: F10.10 Alcohol abuse, uncomplicated (principal); Z51.5 Encounter for palliative care; I50.9 Heart failure, unspecified; R07.9 Chest pain, unspecified; I25.119 Atherosclerotic heart disease of native coronary artery with unspecified angina pectoris
CPT/HCPCS: 94640; 99223; 99232; 99233; 99239; 84484; J3490

== ENCOUNTER 2018-11-04 12:41 | Inpatient (IN) | payer OTHER, SELFPAY ==
[2018-11-04 12:46] VITALS: BP 108/56; PULSE 80; TEMP 36.6; O2SAT 91
--- NOTE | 2018-11-04 12:49 | DI.RAD_ITS ---
SYMPTOMS/DIAGNOSIS: INTOXICATION, L POSTERIOR BRUISING S/P FALLS PA AND LATERAL CHEST: There is no evidence of a pneumothorax or pleural effusion. No pulmonary infiltrate is seen. The heart is top limits of normal in size in this patient who is status post CABG and right coronary artery stent placement. There is a compression fracture of T12, which is of indeterminate age. Also, a mild compression fracture of T5 is noted and was present on prior images.
--- NOTE | 2018-11-04 12:49 | W.ED.GENAD ---
Discharge Plan Disposition Patient Disposition: [facility] INPATIENT Condition: Improving Discharge Details Chief Complaint: AMS/LOC Clinical Impression: Hospice care patient Primary Care Provider: Devin Barron ED Provider: Aleks Kaba Home Meds and New Rx's Prescriptions: No Action furosemide 40 MG tablet 40 mg PO BID RF: 0 omeprazole 20 MG capsule,delayed release(DR/EC) 40 mg PO DAILY RF: 0 clonazepam 1 mg tablet 1 mg PO TID Qty: 9 RF: 5 fentanyl 50 mcg/hr patch 72 hour 1 patch Transdermal Q72H MDD 25 mcg Qty: 5 RF: 0 fluticasone propion-salmeterol [Advair Diskus] 1 EACH blister with device 1 ea Inhalation BID RF: 0 digoxin 125 mcg Tablet 125 mcg PO DAILY AM RF: 0 clopidogrel [Plavix] 75 mg Tablet 75 mg PO DAILY AM RF: 0 losartan 50 mg Tablet 50 mg PO DAILY AM RF: 0 hyoscyamine sulfate 0.125 mg/5 mL Elixir PO PRN PRN (Reason: Secretions) RF: 0 diltiazem HCl [Cartia XT] 240 MG capsule,extended release 24hr 240 mg PO DAILY RF: 0 venlafaxine 100 MG tablet 100 mg PO BID RF: 0 isosorbide mononitrate 60 MG tablet extended release 24 hr 120 mg PO DAILY AM RF: 0 haloperidol 0.5 mg Tablet 1 tab PO Q6H PRN (Reason: Agitation) RF: 0 acetaminophen [Tylenol Extra Strength] 500 mg Tablet 500 mg PO Q6H PRNRF: 0 Fleet Enema 19-7 gram/118 mL Enema 118 ml [place] ONCE PRNRF: 0 nitroglycerin 0.4 mg Tablet, Sublingual 0.4 mg SUBLINGUAL Q5-15M PRNRF: 0 prochlorperazine maleate 10 mg Tablet 1 tab PO Q6H PRNRF: 0 albuterol sulfate [Proventil HFA] 90 mcg/actuation Hfa Aerosol Inhaler 1 puff Inhalation Q4H PRNRF: 0 sennosides [senna] 8.6 mg Tablet 1 - 3 tab PO BID PRNRF: 0 metoprolol succinate 50 mg Tablet Extended Release 24 Hr 50 mg PO DAILY Qty: 14 RF: 4 Medical Decision Making 63-year-old male daily drinker of alcohol who is on hospice. Had called wiMAN 3 times this morning for sliding out of his wheelchair while drunk. As he is a hospice patient and has an order for do not transport, he was not initially brought to the ER. Hospice team was contacted and felt the patient unsafe at home, therefore he was transported by ambulance. He admits to daily use of alcohol including vodka today. He states he has daily episodes of chest pain that are unchanged. He has a chronic oxygen dependence of 4 L. He arrives with a temp of 36, pulse 80, blood pressure 180/56. Exam reveals coarse breath sounds with left-sided posterior ecchymosis of the thoracic cage. IV placed, screening labs obtained, patient referred for x-ray. He is intoxicated with an alcohol of 400. He complains of persistent chest pain and requires morphine administration in the ER. He has had uncontrolled discomfort at home, using alcohol for pain control. Wishes to continue to be a hospice patient. Case discussed with Dr. Lim and patient to be admitted for hospice symptom control. Lab Data Lab results reviewed: Yes I reviewed the patient's lab results. Laboratory Results - last 24 hr 11/04/18 11/04/18 13:25 13:25 WBC 8.27 RBC 4.34 L Hgb 15.4 Hct 44.3 MCV 102.1 H MCH 35.5 H MCHC 34.8 RDW 14.9 H Plt Count 292 MPV 8.9 Immature Gran % 0.6 Neutrophils % 61.6 Lymphocytes % 26.5 Monocytes % 7.5 Eosinophils % 3.3 Basophils % 0.5 Absolute Neutrophils 5.10 Absolute Lymphocytes 2.19 Absolute Monocytes 0.62 Absolute Eosinophils 0.27 Absolute Basophils 0.04 Sodium 133 L Potassium 3.8 Chloride 98 Carbon Dioxide 21.0 Anion Gap 14.0 H BUN 17 Creatinine 1.25 Estimated GFR/1.73 m2 58.53 Glucose 86 Calcium 8.1 L Magnesium 2.0 Total Bilirubin 0.7 AST 44 H ALT 39 Alkaline Phosphatase 128 H Troponin I 0.03 Total Protein 7.2 Albumin 3.3 L Ethyl Alcohol 404.0 HPI General Mode of arrival: EMS. Date/Time Provider Initiated Documentation: 11/04/18 12:48. Limitations to Documentation: other (Intoxicated). Information obtained by: patient and EMS. History of Present Illness 63 year old M presents to the emergency department with the chief complaint of On hospice, intoxicated, unsafe at home, described as moderate, Patient started experiencing this unknown and it has been constant. No relieving factors improve symptom(s), No exacerbating factors reported . Patient notes other (Chronic chest pain and shortness of breath); denies headaches. Related Data Home Medications Medication Instructions Recorded Confirmed fluticasone propion-salmeterol 1 ea INHALATION BID 02/12/17 11/04/18 [Advair Diskus] furosemide 40 mg PO BID tab-cap 09/10/17 11/04/18 omeprazole 40 mg PO DAILY tab-cap 09/10/17 11/04/18 diltiazem HCl [Cartia XT] 240 mg PO DAILY 01/09/18 11/04/18 isosorbide mononitrate 120 mg PO DAILY AM 01/09/18 11/04/18 venlafaxine 100 mg PO BID 01/09/18 11/04/18 Fleet Enema 118 ml [place] ONCE PRN 08/16/18 08/16/18 acetaminophen [Tylenol Extra 500 mg PO Q6H PRN 08/16/18 11/04/18 Strength] albuterol sulfate [Proventil HFA] 1 puff INHALATION Q4H PRN 08/16/18 11/04/18 haloperidol 1 tab PO Q6H PRN 08/16/18 08/16/18 nitroglycerin 0.4 mg SUBLINGUAL Q5-15M PRN 08/16/18 11/04/18 prochlorperazine maleate 1 tab PO Q6H PRN 08/16/18 11/04/18 sennosides [senna] 1 - 3 tab PO BID PRN 08/16/18 11/04/18 metoprolol succinate 50 mg PO DAILY #14 tab 08/20/18 11/04/18 clonazepam 1 mg tablet 1 mg PO TID #9 tab 08/30/18 11/04/18 fentanyl 50 mcg/hr transdermal 1 patch TRANSDERMAL Q72H #5 each 10/15/18 11/04/18 patch MDD 25 mcg clopidogrel [Plavix] 75 mg PO DAILY AM 11/04/18 11/04/18 digoxin 125 mcg PO DAILY AM 11/04/18 11/04/18 hyoscyamine sulfate PO PRN PRN 11/04/18 losartan 50 mg PO DAILY AM 11/04/18 11/04/18 Previous Rx's Medication Instructions Recorded metoprolol succinate 50 mg PO DAILY #14 tab 08/20/18 clonazepam 1 mg tablet 1 mg PO TID #9 tab 08/30/18 fentanyl 50 mcg/hr transdermal 1 patch TRANSDERMAL Q72H #5 each 10/15/18 patch MDD 25 mcg Allergies Allergy/AdvReac Type Severity Reaction Status Date / Time metoprolol AdvReac fatigue Unverified 06/15/18 10:50 General MARC: 3 Review of Systems Review of Systems Unobtainable due to (Intoxicated and poorly compliant with history taking) [facility] Medical History Angina concurrent with and due to arteriosclerosis of coronary artery (Chronic) Hospice care patient (Chronic) Alcoholism /alcohol abuse (Chronic) Altered mental status (Acute) Fracture, intertrochanteric, left femur (Resolved) GERD (gastroesophageal reflux disease) (Chronic) COPD (chronic obstructive pulmonary disease) (Chronic) Congestive heart failure (CHF) (Chronic) Coronary artery disease (Chronic) Surgical History S/P hernia repair (Acute) Family History Father Substance abuse Alcoholism Mother Heart disease Sister Heart disease Social History Smoking/Tobacco Use Status: Current every day Tobacco: How many years used: 45 Counseling given: provider counseling and counseling >3 minutes Alcohol Intake: current Alcohol type: hard liquor Previous attempts at quittin Counseling given: Yes Counseling provided: provider counseling and reduce to 2 or less/day Drug use: Never Details: pt states that he began drinking vodka todayhe states that he is Adopted: No Caregiver/Support person: Yes Household members: none Housing: apartment Number of Children: 0 Pets and animals: No What is your relationship status?: never How often do you talk on the phone with friends or family?: three or more times per week How often do you get together with friends or relatives?: three or more times per week Do you belong to any clubs or organized social groups?: no Panel score (0-1 are the most socially isolated patients): 1 What type of physical activity do you participate in: none Special zohra needs: No Agree to transfusion: No Do you feel safe in your relationship?: No Additional Social history: 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 Unable to work much due to heart disease. Has family close. Smokes 2-3 cigarettes a day. Has 1 alcoholic beverage every few days. No other drug use. Exam Narrative Exam Narrative: GEN: awake, alert. Pleasant, well groomed, interactive. HEAD: Normocephalic, atraumatic ENT: Mucous membranes moist, oropharynx unremarkable, External ear exam unremarkable EYES: PERRL, EOMI NECK: Full ROM, no SHABBIR, no menigismus, tracheostomy scar CHEST/RESP: Nontender, bilateral coarse rhonchi, left posterior thoracic cage ecchymosis CARDIOVASCULAR: RRR, no murmur, rub davon. 2+ Rad pulse bilateral ABDOMEN: Soft, nontender, no mass. +Bowel sounds EXT: No edema, not Neuro: Grossly normal neurologic exam, conversant, interactive. Psych: Speech fluent, affect flat
--- NOTE | 2018-11-04 12:53 | ED.GENADUL_ITS ---
Discharge Plan Disposition Patient Disposition: [facility] INPATIENT Condition: Improving Discharge Details Chief Complaint: AMS/LOC Clinical Impression: Hospice care patient Primary Care Provider: Devin Barron ED Provider: Aleks Kaba Home Meds and New Rx's Prescriptions: No Action furosemide 40 MG tablet 40 mg PO BID RF: 0 omeprazole 20 MG capsule,delayed release(DR/EC) 40 mg PO DAILY RF: 0 clonazepam 1 mg tablet 1 mg PO TID Qty: 9 RF: 5 fentanyl 50 mcg/hr patch 72 hour 1 patch Transdermal Q72H MDD 25 mcg Qty: 5 RF: 0 fluticasone propion-salmeterol [Advair Diskus] 1 EACH blister with device 1 ea Inhalation BID RF: 0 digoxin 125 mcg Tablet 125 mcg PO DAILY AM RF: 0 clopidogrel [Plavix] 75 mg Tablet 75 mg PO DAILY AM RF: 0 losartan 50 mg Tablet 50 mg PO DAILY AM RF: 0 hyoscyamine sulfate 0.125 mg/5 mL Elixir PO PRN PRN (Reason: Secretions) RF: 0 diltiazem HCl [Cartia XT] 240 MG capsule,extended release 24hr 240 mg PO DAILY RF: 0 venlafaxine 100 MG tablet 100 mg PO BID RF: 0 isosorbide mononitrate 60 MG tablet extended release 24 hr 120 mg PO DAILY AM RF: 0 haloperidol 0.5 mg Tablet 1 tab PO Q6H PRN (Reason: Agitation) RF: 0 acetaminophen [Tylenol Extra Strength] 500 mg Tablet 500 mg PO Q6H PRNRF: 0 Fleet Enema 19-7 gram/118 mL Enema 118 ml TN ONCE PRNRF: 0 nitroglycerin 0.4 mg Tablet, Sublingual 0.4 mg SUBLINGUAL Q5-15M PRNRF: 0 prochlorperazine maleate 10 mg Tablet 1 tab PO Q6H PRNRF: 0 albuterol sulfate [Proventil HFA] 90 mcg/actuation Hfa Aerosol Inhaler 1 puff Inhalation Q4H PRNRF: 0 sennosides [senna] 8.6 mg Tablet 1 - 3 tab PO BID PRNRF: 0 metoprolol succinate 50 mg Tablet Extended Release 24 Hr 50 mg PO DAILY Qty: 14 RF: 4 Medical Decision Making 63-year-old male daily drinker of alcohol who is on hospice. Had called [employer] 3 times this morning for sliding out of his wheelchair while drunk. As he is a hospice patient and has an order for do not transport, he was not initially brought to the ER. Hospice team was contacted and felt the patient unsafe at home, therefore he was transported by ambulance. He admits to daily use of alcohol including vodka today. He states he has daily episodes of chest pain that are unchanged. He has a chronic oxygen dependence of 4 L. He arrives with a temp of 36, pulse 80, blood pressure 180/56. Exam reveals coarse breath sounds with left-sided posterior ecchymosis of the thoracic cage. IV placed, screening labs obtained, patient referred for x-ray. He is intoxicated with an alcohol of 400. He complains of persistent chest pain and requires morphine administration in the ER. He has had uncontrolled discomfort at home, using alcohol for pain control. Wishes to continue to be a hospice patient. Case discussed with Dr. Lim and patient to be admitted for hospice symptom control. Lab Data Lab results reviewed: Yes I reviewed the patient's lab results. Laboratory Results - last 24 hr 11/04/18 11/04/18 13:25 13:25 WBC 8.27 RBC 4.34 L Hgb 15.4 Hct 44.3 MCV 102.1 H MCH 35.5 H MCHC 34.8 RDW 14.9 H Plt Count 292 MPV 8.9 Immature Gran % 0.6 Neutrophils % 61.6 Lymphocytes % 26.5 Monocytes % 7.5 Eosinophils % 3.3 Basophils % 0.5 Absolute Neutrophils 5.10 Absolute Lymphocytes 2.19 Absolute Monocytes 0.62 Absolute Eosinophils 0.27 Absolute Basophils 0.04 Sodium 133 L Potassium 3.8 Chloride 98 Carbon Dioxide 21.0 Anion Gap 14.0 H BUN 17 Creatinine 1.25 Estimated GFR/1.73 m2 58.53 Glucose 86 Calcium 8.1 L Magnesium 2.0 Total Bilirubin 0.7 AST 44 H ALT 39 Alkaline Phosphatase 128 H Troponin I 0.03 Total Protein 7.2 Albumin 3.3 L Ethyl Alcohol 404.0 HPI General Mode of arrival: EMS . Date/Time Provider Initiated Documentation: 11/04/18 12:48 . Limitations to Documentation: other (Intoxicated) . Information obtained by: patient and EMS . History of Present Illness 63 year old M presents to the emergency department with the chief complaint of On hospice, intoxicated, unsafe at home, described as moderate, Patient started experiencing this unknown and it has been constant. No relieving factors improve symptom(s), No exacerbating factors reported . Patient notes other (Chronic chest pain and shortness of breath); denies headaches. Related Data Home Medications Medication Instructions Recorded Confirmed fluticasone propion-salmeterol 1 ea INHALATION BID 02/12/17 11/04/18 [Advair Diskus] furosemide 40 mg PO BID tab-cap 09/10/17 11/04/18 omeprazole 40 mg PO DAILY tab-cap 09/10/17 11/04/18 diltiazem HCl [Cartia XT] 240 mg PO DAILY 01/09/18 11/04/18 isosorbide mononitrate 120 mg PO DAILY AM 01/09/18 11/04/18 venlafaxine 100 mg PO BID 01/09/18 11/04/18 Fleet Enema 118 ml TN ONCE PRN 08/16/18 08/16/18 acetaminophen [Tylenol Extra 500 mg PO Q6H PRN 08/16/18 11/04/18 Strength] albuterol sulfate [Proventil HFA] 1 puff INHALATION Q4H PRN 08/16/18 11/04/18 haloperidol 1 tab PO Q6H PRN 08/16/18 08/16/18 nitroglycerin 0.4 mg SUBLINGUAL Q5-15M PRN 08/16/18 11/04/18 prochlorperazine maleate 1 tab PO Q6H PRN 08/16/18 11/04/18 sennosides [senna] 1 - 3 tab PO BID PRN 08/16/18 11/04/18 metoprolol succinate 50 mg PO DAILY #14 tab 08/20/18 11/04/18 clonazepam 1 mg tablet 1 mg PO TID #9 tab 08/30/18 11/04/18 fentanyl 50 mcg/hr transdermal 1 patch TRANSDERMAL Q72H #5 each 10/15/18 11/04/18 patch MDD 25 mcg clopidogrel [Plavix] 75 mg PO DAILY AM 11/04/18 11/04/18 digoxin 125 mcg PO DAILY AM 11/04/18 11/04/18 hyoscyamine sulfate PO PRN PRN 11/04/18 losartan 50 mg PO DAILY AM 11/04/18 11/04/18 Previous Rx's Medication Instructions Recorded metoprolol succinate 50 mg PO DAILY #14 tab 08/20/18 clonazepam 1 mg tablet 1 mg PO TID #9 tab 08/30/18 fentanyl 50 mcg/hr transdermal 1 patch TRANSDERMAL Q72H #5 each 10/15/18 patch MDD 25 mcg Allergies Allergy/AdvReac Type Severity Reaction Status Date / Time metoprolol AdvReac fatigue Unverified 06/15/18 10:50 General MARC: 3 Review of Systems Review of Systems Unobtainable due to (Intoxicated and poorly compliant with history taking) [facility] Medical History Angina concurrent with and due to arteriosclerosis of coronary artery (Chronic) Hospice care patient (Chronic) Alcoholism /alcohol abuse (Chronic) Altered mental status (Acute) Fracture, intertrochanteric, left femur (Resolved) GERD (gastroesophageal reflux disease) (Chronic) COPD (chronic obstructive pulmonary disease) (Chronic) Congestive heart failure (CHF) (Chronic) Coronary artery disease (Chronic) Surgical History S/P hernia repair (Acute) Family History Father Substance abuse Alcoholism Mother Heart disease Sister Heart disease Social History Smoking/Tobacco Use Status: Current every day Tobacco: How many years used: 45 Counseling given: provider counseling and counseling >3 minutes Alcohol Intake: current Alcohol type: hard liquor Previous attempts at quittin Counseling given: Yes Counseling provided: provider counseling and reduce to 2 or less/day Drug use: Never Details: pt states that he began drinking vodka todayhe states that he is Adopted: No Caregiver/Support person: Yes Household members: none Housing: apartment Number of Children: 0 Pets and animals: No What is your relationship status?: never How often do you talk on the phone with friends or family?: three or more times per week How often do you get together with friends or relatives?: three or more times per week Do you belong to any clubs or organized social groups?: no Panel score (0-1 are the most socially isolated patients): 1 What type of physical activity do you participate in: none Special zohra needs: No Agree to transfusion: No Do you feel safe in your relationship?: No Additional Social history: 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 Unable to work much due to heart disease. Has family close. Smokes 2-3 cigarettes a day. Has 1 alcoholic beverage every few days. No other drug use. Exam Narrative Exam Narrative: GEN: awake, alert. Pleasant, well groomed, interactive. HEAD: Normocephalic, atraumatic ENT: Mucous membranes moist, oropharynx unremarkable, External ear exam unremarkable EYES: PERRL, EOMI NECK: Full ROM, no SHABBIR, no menigismus, tracheostomy scar CHEST/RESP: Nontender, bilateral coarse rhonchi, left posterior thoracic cage ecchymosis CARDIOVASCULAR: RRR, no murmur, rub davon. 2+ Rad pulse bilateral ABDOMEN: Soft, nontender, no mass. +Bowel sounds EXT: No edema, not Neuro: Grossly normal neurologic exam, conversant, interactive. Psych: Speech fluent, affect flat
[2018-11-04 13:33] LABS: Abs Immature Grans 0.05 k/cumm (0.0-0.09); Absolute Basophil Count 0.04 k/cumm (0.0-0.2); Absolute Eosinophil Count 0.27 k/cumm (0.0-0.7); Absolute Lymphocyte Count 2.19 k/cumm (1.2-3.4); Absolute Monocyte Count 0.62 k/cumm (0.11-0.7); Basophils % 0.5; Eosinophils % 3.3; HCT 44.3 % (40.0-50.0); HGB 15.4 g/dL (13.5-17.5); Immature Grans % 0.6; Lymphocytes % 26.5; Mean Corp. HGB Concentration 34.8 g/dL (32.0-36.0); Mean Corpuscular Hemoglobin 35.5 pg (27.0-33.0); Mean Corpuscular Volume 102.1 fL (80-95); Mean Platelet Volume 8.9 fL (8.0-11.0); Monocytes % 7.5; Neutrophils % 61.6; Platelet Count 292 x1000/uL (130-400); RBC 4.34 m/cumm (4.50-6.00); RBC Distribution Width 14.9 % (11.8-14.1); White Blood Cell Count 8.27 k/cumm (4.4-10.8)
[2018-11-04 13:46] LABS: ALT 39 U/L (12-78); AST 44 U/L (15-37); Albumin 3.3 g/dL (3.4-5.0); Alkaline Phosphatase 128 U/L (46-116); BUN 17 mg/dL (7-18); Bilirubin, Total 0.7 mg/dL (0.2-1.0); CREATININE 1.25 mg/dL (0.70-1.30); Calcium 8.1 mg/dL (8.5-10.1); Chloride 98 mmol/L (98-107); Estimated GFR 58.53 (mL/min/1.73m2); Glucose 86 mg/dL (70-100); Potassium 3.8 mmol/L (3.5-5.1); Sodium 133 mmol/L (136-145); Total Protein 7.2 g/dL (6.4-8.2); Troponin I 0.03 ng/mL (0.00-0.06)
[2018-11-04] MEDS: MORPHine 10 MG/ML VIAL 4 MG IVP (13:53)
[2018-11-04 14:20] VITALS: RESP 18
--- NOTE | 2018-11-04 16:16 | NUR.NOTE ---
pt ate soup and a sandwich, he is dozing in his room . he told me that he has not been sleeping because of back and chest pain , for the last 4 nights.Nursing Note:
[2018-11-04] MEDS: Normal Saline Flush 10 ML SYR IVP (16:35)
[2018-11-04] MEDS: MORPHine 1,000 MG in CADD PUMP CASSETTE 1 EACH, Normal Saline 80 ML 0.5 MG SC (18:17)
[2018-11-04] MEDS: Scopolamine 1 MG/3 DAYS PATCH TD (18:40)
[2018-11-04] MEDS: Furosemide 40 MG TAB PO (18:40)
[2018-11-04 19:06] VITALS: BP 108/56; PULSE 80; RESP 18; TEMP 36.6; O2SAT 91
[2018-11-04] MEDS: Patch Removal 1 EACH TD (19:21)
[2018-11-04] MEDS: Budesonide/Formoterol 160/4.5 6 GM 60 PUFF INH IH (19:43)
[2018-11-04] MEDS: clonazePAM 1 MG TAB PO (19:44)
[2018-11-04] MEDS: Venlafaxine 50 MG TAB 100 MG PO (19:44)
--- NOTE | 2018-11-04 20:16 | HPE_ITS ---
Date of service: 11/04/18 Assessment and Plan (1) Admission for hospice care: Current visit: Yes Status: Acute Transferred from home to hospital for his intoxication and unsafe situation at home; he told hospice nurse he was suicidal. Once in the ER, he was evaluated for his alcohol intoxication. He was found to be acutely inebriated with elevated alcohol level. He was also c/o chest pain, and requiring IV morphine to keep him comfortable. I was consulted. Decision made to admit him for hospice symptom management for his chest pain and chronic angina, end=stage CAD and CHF. He is DNR/DNI He cannot return to his prior living situation. He needs higher level of care than independent living. (2) End stage congestive heart failure: Current visit: Yes Status: Chronic Reason for his hospice admission. He is short of breath all the time, particularly in the am and with any exertion. He is on multiple cardiac meds with no relief. He says he has been taking them. He has a hospice nursing visit every 3 days to check on his medications. Until today's visit, from his last inpatient discharge until now, he was taking his meds as directed. He gets dyspneic with conversation. He has a chronic oxygen dependence. (3) Coronary artery disease with unstable angina pectoris: Current visit: Yes Status: Chronic Chest pain constant now, even at rest. Relieved with morphine. (4) Alcohol intoxication: Current visit: Yes Status: Acute Problem for decades. This is what caused him to be transported to the ER. (5) Alcoholism /alcohol abuse: Current visit: No Status: Chronic On CIWA in addition to comfort measures only orders. History of Present Illness Chief Complaint: intoxicated and unsafe at home; in ER c/o uncontrolled angina Narrative: Christofer has been on hospice for about 10 months for end-stage CHF and chronic angina. He came on originally after being discharged from [facility] with a diagnosis of severe CAD with significant coronary artery blockages. He chose to have no further cardiac interventions. He is s/p CABG. He has continued to smoke. He is an alcoholic. His drinking was under control until this past weekend. He is intoxicated at the time of my exam; he cannot identify or tell me what made him start drinking heavily again. Today he called EMS several times. They had to pick him up from the floor. Hospice was called and Patrick Salazar RN attended Christofer. He was severely intoxicated. An empty whiskey bottle and several large beer cans were in his kitchen. A large bottle of vodka was almost empty. He was drinking in her presence. He lives alone; his sister manages the independent living building where he lives and checks on him but does not provide daily care. He has been told that if he became severely intoxicated again, he would have to move into a Level 3 or SNF situation. He is now facing that reality. Once he was transported to the ER today for his intoxication and danger to himself, he was found to have uncontrolled symptoms related to his hospice diagnosis. He is being admitted for symptom management for his CAD/chronic angina. Note that he is usually on a fentanyl patch of 50 mcg, but this has proved ineffective over the past 3-4 days. He is asking for a morphine drip. He received 16 mg of IV morphine in his first two hours in the hospital, and was still in pain at the time I was seeing him. Review of Systems Constitutional Reports difficulty sleeping, Reports excessive sweating, Reports fatigue, Reports poor appetite, Reports weakness and Reports weight gain Eyes Reports requires corrective lenses ENT Reports abnormal hearing, Reports vertigo, Reports dizziness, Reports dry mouth, Reports hearing loss, Reports hoarseness and Reports disequilibrium Cardiovascular Reports chest pain with activity, Reports edema, Reports dyspnea, Reports dyspnea on exertion and Reports paroxysmal nocturnal dyspnea Respiratory Reports cough, Reports dyspnea, Reports dyspnea on exertion and Reports wheezing Gastrointestinal Reports constipation Genitourinary Reports difficulty urinating Musculoskeletal Reports abnormal gait, Reports arthralgias, Reports muscle weakness and Reports stiffness Integumentary/Breasts Reports dry skin Neurologic Reports abnormal hearing, Reports abnormal gait, Reports behavioral changes, Reports vertigo, Reports dizziness, Reports memory loss, Reports disequilibrium and Reports weakness Psychiatric Reports abnormal sleep pattern, Reports behavioral changes, Reports depression, Reports difficulty concentrating, Reports hopelessness, Reports memory loss and Reports mood swings Endocrine Reports excessive sweating and Reports fatigue Allergic/Immunologic Reports wheezing PFSH Medical History Coronary artery disease with unstable angina pectoris (Chronic) End stage congestive heart failure (Chronic) Admission for hospice care (Acute) Angina concurrent with and due to arteriosclerosis of coronary artery (Chronic) Hospice care patient (Chronic) Alcoholism /alcohol abuse (Chronic) Altered mental status (Acute) Fracture, intertrochanteric, left femur (Resolved) GERD (gastroesophageal reflux disease) (Chronic) COPD (chronic obstructive pulmonary disease) (Chronic) Congestive heart failure (CHF) (Chronic) Coronary artery disease (Chronic) Surgical History History of repair of hip fracture (Chronic) Hx of CABG (Chronic) S/P hernia repair (Acute) Family History Father Substance abuse Alcoholism Mother Heart disease Sister Heart disease Social History Smoking/Tobacco Use Status: Current every day Tobacco: How many years used: 45 Counseling given: provider counseling and counseling >3 minutes Alcohol Intake: current Alcohol type: hard liquor Previous attempts at quittin Counseling given: Yes Counseling provided: provider counseling and reduce to 2 or less/day Drug use: Never Details: pt states that he began drinking vodka todayhe states that he is Adopted: No Caregiver/Support person: No Household members: none Housing: apartment Number of Children: 0 Communication Needs: Corrective Lenses Education Level: college Do you need help understanding health information?: Often Pets and animals: No What is your relationship status?: never How often do you talk on the phone with friends or family?: once per week How often do you get together with friends or relatives?: once per week Do you belong to any clubs or organized social groups?: no Panel score (0-1 are the most socially isolated patients): 0 What type of physical activity do you participate in: none and sedentary lifestyle Special zohra needs: No Agree to transfusion: No Seatbelt use: sometimes Water heater temp set <120 deg: Yes Working smoke detector in home: Yes Fire extinguisher in home: Yes Firearms in home: No Do you feel safe at home: No Do you feel safe in your relationship?: Yes Additional Social history: On hospice due to heart disease. Heavy drinker and smoker since he was a teen. Has tried to quit both multiple times. Lives at [facility]. His sister Charisse Perez/DPCARMEN is the social media community manager of the building. Close to his niece Aileen. No other friends. Very isolated. Meds Home Medications Medication Instructions Recorded Confirmed Type fluticasone propion-salmeterol 1 ea INHALATION BID 02/12/17 11/04/18 History [Advair Diskus] furosemide 40 mg PO BID tab-cap 09/10/17 11/04/18 History omeprazole 40 mg PO DAILY tab-cap 09/10/17 11/04/18 History diltiazem HCl [Cartia XT] 240 mg PO DAILY 01/09/18 11/04/18 History isosorbide mononitrate 120 mg PO DAILY AM 01/09/18 11/04/18 History venlafaxine 100 mg PO BID 01/09/18 11/04/18 History Fleet Enema 118 ml VT ONCE PRN 08/16/18 08/16/18 History acetaminophen [Tylenol Extra 500 mg PO Q6H PRN 08/16/18 11/04/18 History Strength] albuterol sulfate [Proventil HFA] 1 puff INHALATION Q4H PRN 08/16/18 11/04/18 History haloperidol 1 tab PO Q6H PRN 08/16/18 08/16/18 History nitroglycerin 0.4 mg SUBLINGUAL Q5-15M PRN 08/16/18 11/04/18 History prochlorperazine maleate 1 tab PO Q6H PRN 08/16/18 11/04/18 History sennosides [senna] 1 - 3 tab PO BID PRN 08/16/18 11/04/18 History metoprolol succinate 50 mg PO DAILY #14 tab 08/20/18 11/04/18 Rx clonazepam 1 mg tablet 1 mg PO TID #9 tab 08/30/18 11/04/18 Rx fentanyl 50 mcg/hr transdermal 1 patch TRANSDERMAL Q72H #5 each 10/15/18 11/04/18 Rx patch MDD 25 mcg clopidogrel [Plavix] 75 mg PO DAILY AM 11/04/18 11/04/18 History digoxin 125 mcg PO DAILY AM 11/04/18 11/04/18 History hyoscyamine sulfate PO PRN PRN 11/04/18 History losartan 50 mg PO DAILY AM 11/04/18 11/04/18 History Allergies Allergy/AdvReac Type Severity Reaction Status Date / Time metoprolol AdvReac fatigue Unverified 06/15/18 10:50 Exam Const General: no acute distress, anxious, disheveled, ill appearing and intoxicated appearing Nutritional Appearance: obese Orientation: alert, awake, oriented to person and oriented to place Limitations: altered mental status HENMT Head: normocephalic and atraumatic Ears: hearing grossly impaired General nose exam: external nose normal Face and sinus: normal facial exam and dry mucous membranes Teeth and gingiva: fair dentition Eyes Conjunctivae: conjunctivae normal Sclera: sclerae normal Neck Neck: no lymphadenopathy and no JVD Resp Effort & Inspection: normal respiratory effort, able to speak in complete sentences and audible wheezes Auscultation: bronchovesicular breath sounds and diminished lung sounds Cardio Jugular venous pressure: no JVD Rate: tachycardic Rhythm: abnormal rhythm irregularly irregular Heart Sounds: S1 normal and S2 normal GI Inspection: obesity Palpation: soft Auscultation: hypoactive bowel sounds Skin General skin exam: atrophy, dry skin, ecchymosis, excoriation(s), pallor and turgor decreased Neuro General: alert, awake and moves all extremities Cognition: abnormal cognition Speech: abnormal speech slurred Gait: gait assisted Method: wheelchair bound Motor: strength abnormal Extrem General: muscle atrophy Psych Appearance: disheveled Speech and Movement: slowed movement and slurred speech Mood: anxious mood Affect: sad and anxious affect Attitude: cooperative Thought Process: confabulating, illogical and impoverished Thought Content: suicidality Insight: limited Judgment: limited Results Labs : 11/04/18 13:25 11/04/18 13:25 Laboratory Results - last 24 hr 11/04/18 11/04/18 13:25 13:25 WBC 8.27 RBC 4.34 L Hgb 15.4 Hct 44.3 MCV 102.1 H MCH 35.5 H MCHC 34.8 RDW 14.9 H Plt Count 292 MPV 8.9 Immature Gran % 0.6 Neutrophils % 61.6 Lymphocytes % 26.5 Monocytes % 7.5 Eosinophils % 3.3 Basophils % 0.5 Absolute Neutrophils 5.10 Absolute Lymphocytes 2.19 Absolute Monocytes 0.62 Absolute Eosinophils 0.27 Absolute Basophils 0.04 Sodium 133 L Potassium 3.8 Chloride 98 Carbon Dioxide 21.0 Anion Gap 14.0 H BUN 17 Creatinine 1.25 Estimated GFR/1.73 m2 58.53 Glucose 86 Calcium 8.1 L Magnesium 2.0 Total Bilirubin 0.7 AST 44 H ALT 39 Alkaline Phosphatase 128 H Troponin I 0.03 Total Protein 7.2 Albumin 3.3 L Ethyl Alcohol 404.0 Last Vital Signs Temp 97.9 F 11/04/18 19:06 Pulse 80 11/04/18 19:06 Resp 18 11/04/18 19:06 BP 108/56 L 11/04/18 19:06 Pulse Ox 91 L 11/04/18 19:06
[2018-11-04 20:34] VITALS: O2SAT 96
[2018-11-04 23:00] VITALS: O2SAT 93
[2018-11-05] MEDS: LORazepam 1 MG TAB PO (04:17)
[2018-11-05] MEDS: LORazepam 1 MG TAB PO/SL ×3 (07:06→20:37)
[2018-11-05 07:25] VITALS: O2SAT 95
[2018-11-05] MEDS: Budesonide/Formoterol 160/4.5 6 GM 60 PUFF INH IH ×2 (07:28→20:29)
--- NOTE | 2018-11-05 07:40 | PDOC.ERCMPRO ---
Care Management Progress Note 11/05-Note for 11/04 Received phone call from Hospice stating patient was intoxicated and needed to be transferred to [facility] ED. Hospice stated that they were working on placement. Rachel reports that patient has called 911 three times this morning for falling out of his power wheelchair. Christofer is intoxicated (please see provider note) and Hospice is stating he can not return to his home. Dr. Kaba did speak with Dr. Lim who is in agreement to admit Christofer under hospice for symptom management and placement. This CM also spoke with Susan at Hospice. Report given to inpatient Care Management.
--- NOTE | 2018-11-05 07:48 | CMPROGNOTE_ITS ---
Care Management Progress Note 11/05-Note for 11/04 Received phone call from Hospice stating patient was intoxicated and needed to be transferred to [facility] ED. Hospice stated that they were working on placement. Rachel reports that patient has called 911 three times this morning for falling out of his power wheelchair. Christofer is intoxicated (please see provider note) and Hospice is stating he can not return to his home. Dr. Kaba did speak with Dr. Lim who is in agreement to admit Christofer under hospice for symptom management and placement. This CM also spoke with Susan at Hospice. Report given to inpatient Care Management.
[2018-11-05] MEDS: Furosemide 40 MG TAB PO ×2 (07:51→15:36)
[2018-11-05] MEDS: dilTIAZem CD 120 MG CAPCR 240 MG PO (07:51)
[2018-11-05] MEDS: Metoprolol CR 50 MG TABCR PO (07:51)
[2018-11-05] MEDS: clonazePAM 1 MG TAB PO ×3 (07:51→20:26)
[2018-11-05 08:00] VITALS: BP 146/80; PULSE 61; RESP 12; TEMP 36.4; O2SAT 92
[2018-11-05] MEDS: Venlafaxine 50 MG TAB 100 MG PO ×2 (09:47→20:26)
[2018-11-05] MEDS: Isosorbide Mononitrate 60 MG TABCR 120 MG PO (09:47)
--- NOTE | 2018-11-05 16:29 | PGE_ITS ---
Date of Service Date of service: 11/05/18 Time of Service: 16:28 Assessment and Plan (1) End stage congestive heart failure: Current visit: Yes Status: Chronic heart is worsening chest pain at rest has required 4 boluses in 8 hrs will increase to 7 mg/hr with 7 mg (2) Admission for hospice care: Current visit: Yes Status: Acute likely will on this admission family is aware if he does recover, will need SNF (3) Coronary artery disease with unstable angina pectoris: Current visit: Yes Status: Chronic on morphine drip (4) Alcohol intoxication: Current visit: Yes Status: Acute sobering up with some mild signs of withdrawal, tremor, sweating Subjective Patient reports: still having pain, pain is less and voiding w/o difficulty (has gandhi) Interval history since last seen: Has needed 4 boluses of morphine (20 mg) in last 8 hrs. Will increase hourly dose. Sister Charisse and brother in law Damien here. Explained to them in family meeting that I think Christofer may not survive this admission. If he does, he will need placement. Not safe to be alone any longer. They had no idea where he got access to his whiskey and vodka, as it is not sold across the street from his apt. Exam Const General: cooperative, no acute distress, disheveled and ill appearing Nutritional Appearance: malnourished and obese Orientation: awake, oriented to person, oriented to place and confused [facility] Head: normocephalic and atraumatic Ears: hearing grossly impaired General nose exam: external nose normal (has nasal cannula in place) Face and sinus: dry mucous membranes Mouth: fetor hepaticus Teeth and gingiva: fair dentition Eyes Conjunctivae: conjunctivae normal Sclera: sclerae normal Neck Neck: no lymphadenopathy and JVD Thyroid: no masses and nontender Resp Effort & Inspection: able to speak in complete sentences, audible wheezes and prolonged expiratory phase Auscultation: crackles, wheezes and vesicular breath sounds Cardio Jugular venous pressure: JVD Rate: tachycardic Rhythm: abnormal rhythm irregularly irregular Heart Sounds: S1 normal and S2 normal GI Inspection: obesity Palpation: no masses and nontender Auscultation: normal bowel sounds General: other (gandhi in place, draining clear urine) Skin General skin exam: dry skin, ecchymosis, erythema, excoriation(s), hypertrophy and pallor Hair: normal Nails: clubbing Neuro General: awake and unable to assess gait Cognition: abnormal cognition Speech: abnormal speech, anomia and expressive aphasia Motor: movement abnormality noted, tremor and muscle tone abnormal Extrem General: clubbing and muscle atrophy Psych Appearance: disheveled Speech and Movement: delayed speech and slowed movement Mood: euthymic mood Affect: sad and blunted Attitude: cooperative Thought Process: flight of ideas, illogical, impoverished, loose association and tangential Thought Content: hallucinations Insight: limited Judgment: limited Objective Objective Clinical Data: Vital Signs Temperature 97.5 F L 11/05/18 08:00 Temperature Source Tympanic 11/05/18 08:00 Pulse 61 11/05/18 08:00 Pulse Rhythm Regular 11/04/18 17:00 Respiratory Rate 12 11/05/18 08:00 Respiratory Effort Incrsd Work of Breathing 11/05/18 07:28 Respiratory Depth Deep 11/05/18 07:28 Respiratory Pattern Normal 11/05/18 07:28 Blood Pressure 146/80 H 11/05/18 08:00 Pulse Oximetry 92 L 11/05/18 08:00 Oxygen Delivery Method Nasal Cannula 11/05/18 08:00 Oxygen Flow Rate 4 11/05/18 08:00 Pain Level 4 11/05/18 07:34 Comment 11/04/18 17:00 Intake & Output 11/04/18 11/05/18 11/05/18 23:59 11:59 23:59 Intake Total 370 / 370 Output Total 1200 / 1200 450 / 450 Balance -1200 / -1200 -80 / -80 Weight 191 lb 5.78 oz Intake: Oral 370 / 370 Output: Urine 1200 / 1200 450 / 450 Other: Urine Color Yellow Dark [place] Urine Appearance Clear Clear Urine Odor Normal Comment bilingual receptionist Voiding Methods Urinal Laboratory Results WBC 8.27 k/cumm (4.4-10.8) 11/04/18 13:25 RBC 4.34 m/cumm (4.50-6.00) L 11/04/18 13:25 Hgb 15.4 g/dL (13.5-17.5) 11/04/18 13:25 Hct 44.3 % (40.0-50.0) 11/04/18 13:25 MCV 102.1 fL (80-95) H 11/04/18 13:25 MCH 35.5 pg (27.0-33.0) H 11/04/18 13:25 MCHC 34.8 g/dL (32.0-36.0) 11/04/18 13:25 RDW 14.9 % (11.8-14.1) H 11/04/18 13:25 Plt Count 292 x1000/uL (130-400) 11/04/18 13:25 MPV 8.9 fL (8.0-11.0) 11/04/18 13:25 Immature Gran % 0.6 11/04/18 13:25 Neutrophils % 61.6 11/04/18 13:25 Lymphocytes % 26.5 11/04/18 13:25 Monocytes % 7.5 11/04/18 13:25 Eosinophils % 3.3 11/04/18 13:25 Basophils % 0.5 11/04/18 13:25 Absolute Neutrophils 5.10 k/cumm (1.2-6.7) 11/04/18 13:25 Absolute Lymphocytes 2.19 k/cumm (1.2-3.4) 11/04/18 13:25 Absolute Monocytes 0.62 k/cumm (0.11-0.7) 11/04/18 13:25 Absolute Eosinophils 0.27 k/cumm (0.0-0.7) 11/04/18 13:25 Absolute Basophils 0.04 k/cumm (0.0-0.2) 11/04/18 13:25 Sodium 133 mmol/L (136-145) L 11/04/18 13:25 Potassium 3.8 mmol/L (3.5-5.1) 11/04/18 13:25 Chloride 98 mmol/L (98-107) 11/04/18 13:25 Carbon Dioxide 21.0 mmol/L (21.0-32.0) 11/04/18 13:25 Anion Gap 14.0 mmol/L (3-11) H 11/04/18 13:25 BUN 17 mg/dL (7-18) 11/04/18 13:25 Creatinine 1.25 mg/dL (0.70-1.30) 11/04/18 13:25 Estimated GFR/1.73 m2 58.53 (mL/min/1.73m2) 11/04/18 13:25 Glucose 86 mg/dL (70-100) 11/04/18 13:25 Calcium 8.1 mg/dL (8.5-10.1) L 11/04/18 13:25 Magnesium 2.0 mg/dL (1.8-2.4) 11/04/18 13:25 Total Bilirubin 0.7 mg/dL (0.2-1.0) 11/04/18 13:25 AST 44 U/L (15-37) H 11/04/18 13:25 ALT 39 U/L (12-78) 11/04/18 13:25 Alkaline Phosphatase 128 U/L (46-116) H 11/04/18 13:25 Troponin I 0.03 ng/mL (0.00-0.06) 11/04/18 13:25 Total Protein 7.2 g/dL (6.4-8.2) 11/04/18 13:25 Albumin 3.3 g/dL (3.4-5.0) L 11/04/18 13:25 Ethyl Alcohol 404.0 mg/dL (<3) 11/04/18 13:25
--- NOTE | 2018-11-05 18:05 | PDOC.CMPRO ---
- If Service Date Differs Date of service: 11/05/18 Time of Service: 18:05 Care Management Progress Note S/O: Christofer is here at [facility] for symptom management under hospice services. He is receiving SC morphine via CADD pump which was increased today. His Hospice client care consultant is assisting with placement in the community there is an outstanding referral to the [facility], Christofer was reviewed with the [facility] and discharge planning today. A: Christofer is admitted for symptom management, pain control through Hospice and has ELECTROMEDICAL EQUIPMENT TECHNICIAN orders. Plan Per Hospice and Christofer will likely need halfway placement. He is currently receiving SC morphine which is being titrated to treat his pain. He is currently being assessed for ETOH withdrawal and will continue to be medicated based on assessment. Martha Fernandez is his community CM and will continue to assist with community placement as he is not able to return home safely.
--- NOTE | 2018-11-05 18:15 | CMPROGNOTE_ITS ---
- If Service Date Differs Date of service: 11/05/18 Time of Service: 18:05 Care Management Progress Note S/O: Christofer is here at [facility] for symptom management under hospice services. He is receiving SC morphine via CADD pump which was increased today. His Hospice transitional care manager is assisting with placement in the community there is an outstanding referral to the [facility], Christofer was reviewed with the [facility] and discharge planning today. A: Christofer is admitted for symptom management, pain control through Hospice and has QUARRY WORKER orders. Plan Per Hospice and Christofer will likely need [facility] placement. He is currently receiving SC morphine which is being titrated to treat his pain. He is currently being assessed for ETOH withdrawal and will continue to be medicated based on assessment. Martha Fernandez is his community CM and will continue to assist with community placement as he is not able to return home safely.
[2018-11-06] MEDS: LORazepam 1 MG TAB PO/SL (00:45)
--- NOTE | 2018-11-06 08:25 | CMPROGNOTE_ITS ---
Care Management Progress Note Christofer remains on Hospice care at [facility]. Martha Fernandez of [facility] continues to work towards placement. CM continues to follow and support discharge planning considerations.
--- NOTE | 2018-11-06 08:25 | PDOC.CMPRO ---
Care Management Progress Note Christofer remains on Hospice care at [facility]. Martha Fernandez of [facility] continues to work towards placement. CM continues to follow and support discharge planning considerations.
[2018-11-06] MEDS: Normal Saline Flush 10 ML SYR IVP (08:37)
[2018-11-06] MEDS: LORazepam 2 MG/ML VIAL IV/SC (08:38)
[2018-11-06] MEDS: Glycopyrrolate 0.2 MG/1 ML VIAL IVP (08:38)
[2018-11-06] MEDS: Hyoscyamine 0.125 MG SL/ORAL/CHEW SL (08:38)
--- NOTE | 2018-11-06 09:53 | W.PM.DDS ---
Date of service: 11/06/18 Discharge Sum: Prov Provider Primary care physician: guilherme Admitting clinician: Wendi Lim Attending physician on admission: Wendi Lim Discharge Sum: Diag PCOD Cause of : Congestive heart failure Contributing Factors (1) End stage congestive heart failure: (2) Admission for hospice care: (3) Coronary artery disease with unstable angina pectoris: (4) Alcohol intoxication: Discharge Sum: Summary Date and Time Admission Date: 11/04/1904/29/19 14:25 Date of : 11/06/18 Time of : 08:58 Summary Details: Admitted on 11/04. Intoxicated. With chronic chest pain and difficulty breathing to his CHF. Admitted on omfort measures only. No one to attend him at home. Plan upon admission to hospice was that he would come to hospital to at end of life. He was very clear with me that he thought he was dying and that he would not return home. His cardiac condition has worsened dramatically over the 2 weeks prior to admission. He could no longer get out of his apt. (He was WC bound). He was having trouble transferring from bed to WC or WC to chair. He had constant intense chest pain. His pain medication doubled, but he was still uncomfortable on admission to ER. Additional Data Confirmation of as documented by pronouncing clinician: no pulse, no respirations and no heart sounds Family: contacted Additional persons at bedside: fiber optic assembly worker Attending/PCP notified?: Yes Attending Physician: Wendi Lim MD Was code activated?: No Autopsy requested?: No motor vehicle examiner notified?: No Organ bank notified?: Yes Advance directives: Yes Hospice patient?: Yes
--- NOTE | 2018-11-06 09:57 | EXPE_ITS ---
Date of service: 11/06/18 Discharge Sum: Prov Provider Primary care physician: guilherme Admitting clinician: Wendi Lim Attending physician on admission: Wendi Lim Discharge Sum: Diag PCOD Cause of : Congestive heart failure Contributing Factors (1) End stage congestive heart failure: (2) Admission for hospice care: (3) Coronary artery disease with unstable angina pectoris: (4) Alcohol intoxication: Discharge Sum: Summary Date and Time Admission Date: 11/04/1904/29/19 14:25 Date of : 11/06/18 Time of : 08:58 Summary Details: Admitted on 11/04. Intoxicated. With chronic chest pain and difficulty breathing to his CHF. Admitted on omfort measures only. No one to attend him at home. Plan upon admission to hospice was that he would come to hospital to at end of life. He was very clear with me that he thought he was dying and that he would not return home. His cardiac condition has worsened dramatically over the 2 weeks prior to admission. He could no longer get out of his apt. (He was WC bound). He was having trouble transferring from bed to WC or WC to chair. He had constant intense chest pain. His pain medication doubled, but he was still uncomfortable on admission to ER. Additional Data Confirmation of as documented by pronouncing clinician: no pulse, no respirations and no heart sounds Family: contacted Additional persons at bedside: house mover helper Attending/PCP notified?: Yes Attending Physician: Wendi Lim MD Was code activated?: No Autopsy requested?: No sock examiner notified?: No Organ bank notified?: Yes Advance directives: Yes Hospice patient?: Yes
== END 2018-11-06 11:32 | disposition expired | DRG 293 ==
LOC: ER 14:57 → MS 16:38
PROVIDERS: Admitting Provider Family Medicine; Emergency Provider Emergency Medicine; PCP Specialist/Technologist Athletic Trainer; Referring Provider Family Medicine; Visit Provider Family Medicine
DX: I50.84 End stage heart failure (principal); Z51.5 Encounter for palliative care; I25.110 Atherosclerotic heart disease of native coronary artery with unstable angina pectoris; F10.220 Alcohol dependence with intoxication, uncomplicated; Y90.8 Blood alcohol level of 240 mg/100 ml or more; Z60.2 Problems related to living alone; Z99.3 Dependence on wheelchair; F17.210 Nicotine dependence, cigarettes, uncomplicated; J44.9 Chronic obstructive pulmonary disease, unspecified
CPT/HCPCS: 36415; 80053; 94640; 96374; 99223; 99233; 99239; 99285; 71046; 80320; 83735; 84484; 85025; 99284; J2060; J2270; J3490